=== PATIENT | male | born 1960 | race Caucasian/White ===

== ENCOUNTER → 2018-07-06 09:51 | Outpatient (CLI) | payer BC, SELFPAY | PROVIDERS: PCP Family Medicine; Visit Provider Family Medicine | DX: I10 Essential (primary) hypertension (principal) | CPT/HCPCS: 93306 ==

== ENCOUNTER → 2018-07-29 07:54 | Outpatient (CLI) | payer BC, SELFPAY ==
--- NOTE | 2018-07-29 07:57 | CT_ITS ---
CT heart w calcium score INDICATION: Chest pain, shortness of air, hypertension ITS.REASON: z ORDERING PHYSICIAN: Bertin Pizano MD PATIENT AGE: 58 years COMPARISON: None TECHNIQUE: Axial images are obtained without contrast. Sagittal and coronal reformatted images are reviewed as well. All CT scans at the facility use one or more dose reduction, viz: automated exposure control, ma/kV adjustment per patient size (including targeted exams where dose is matched to indication, i.e. head), or iterative reconstruction technique. FINDINGS: Coronary artery calcium score is 0 indicating no identifiable calcified atherosclerotic plaque very low cardiovascular disease risk IMPRESSION: Coronary artery calcium score is 0 indicating no identifiable calcified atherosclerotic plaque very low cardiovascular disease risk
== END ==
PROVIDERS: PCP Family Medicine; Visit Provider Internal Medicine Cardiovascular Disease
DX: R07.9 Chest pain, unspecified (principal); R06.02 Shortness of breath; I10 Essential (primary) hypertension; R53.83 Other fatigue
CPT/HCPCS: 75571

== ENCOUNTER → 2018-08-05 12:17 | Outpatient (CLI) | payer BC, SELFPAY | PROVIDERS: PCP Family Medicine; Visit Provider Internal Medicine Cardiovascular Disease | DX: G47.33 Obstructive sleep apnea (adult) (pediatric) (principal); I10 Essential (primary) hypertension; R06.02 Shortness of breath; R53.83 Other fatigue | CPT/HCPCS: 95806 ==

== ENCOUNTER → 2018-08-08 06:19 | Outpatient (CLI) | payer BC, SELFPAY ==
--- NOTE | 2018-08-08 06:21 | NM_ITS ---
SPECT MYOCARDIAL PERFUSION SCAN, REST AND STRESS: EXERCISE STRESS: [facility] REVIEW QGS EF AND WALL MOTION EVALUATION: QPS - PERFUSION EVALUATION: HISTORY: SOB, FATIGUE, HTN PROCEDURE: Rest imaging performed after administration of9.94 millicuries Tc MIBI. Dose administered at6:30 a.m., with imaging thereafter. Stress imaging was then performed following7 minutes 45 seconds of exercise stress. The patient achieved a heart [id number] with projected heart rate of139 . Resting BP174/106 with stress 172/86. At maximum exercise stress,32.0 millicuries Tc MIBI administered at8:20 a.m. with [id number] minutes thereafter. FINDINGS: Perfusion Evaluation: The single slice spect images as well as the [facility] bull's-eye data summary were reviewed. Wall Motion and Ejection Fraction Evaluation: Gated SPECT review and analysis used to evaluate these features. There is a 55 % left ventricular ejection fraction. There seems to be good wall motion Uniform myocardial activity at both stress and rest gated images corrected ejection fraction of 55% with normal wall motion IMPRESSION: No scintigraphic evidence of exercise-induced myocardial ischemia normal ejection fraction normal wall motion
--- NOTE | 2018-08-08 07:03 | HMH.ITSHM ---
Current Home Medications as stated by this patient Dc Zuniga or community health representative. []PSYLLIUM HUSK OMEPRAZOLE OMEGA 3 NABUMETONE LORATADINE LISINOPRIL GARLIC FERROUS SULFATE CITALOPRAM CHOLECALCIFEROL BISOPROLOL
== END ==
PROVIDERS: PCP Family Medicine; Visit Provider Internal Medicine Cardiovascular Disease
DX: R06.02 Shortness of breath (principal); I10 Essential (primary) hypertension; R53.83 Other fatigue
CPT/HCPCS: 78452; 93017; A9502

== ENCOUNTER → 2018-09-27 15:56 | Outpatient (CLI) | payer BC, SELFPAY ==
[2018-09-27 17:59] LABS: Anion Gap 11.9 mEq/L (5-15); Blood Urea Nitrogen 17 mg/dL (7-18); Calcium 9.2 mg/dL (8.5-10.1); Carbon Dioxide 30 mmol/L (21.0-32.0); Chloride 104 mmol/L (98-107); Creatinine,Serum 1.17 mg/dL (0.70-1.30); Estimated Glomerular Filt Rate 64 ml/min (>60); GFR (African American) 78 ML/MIN (>60); Glucose 113 mg/dL (74-106); Potassium 3.9 mmoL/L (3.5-5.1); Sodium 142 mmol/L (136-145)
[2018-10-04 09:57] LABS: Testosterone, Total, LC/MS 416.4 ng/dL (264.0-916.0); Testosterone,Free 8.2 pg/mL (7.2-24.0)
== END ==
PROVIDERS: Internal Medicine Cardiovascular Disease; Visit Provider Urology
DX: R06.09 Other forms of dyspnea (principal); I10 Essential (primary) hypertension; K21.9 Gastro-esophageal reflux disease without esophagitis; R60.9 Edema, unspecified; G47.33 Obstructive sleep apnea (adult) (pediatric); E29.1 Testicular hypofunction
CPT/HCPCS: 36415; 80048; 84402; 84403

== ENCOUNTER → 2018-12-09 15:38 | Outpatient (CLI) | payer BC, SELFPAY | PROVIDERS: PCP Family Medicine; Visit Provider Specialist | DX: G47.33 Obstructive sleep apnea (adult) (pediatric) (principal) | CPT/HCPCS: 94762 ==

== ENCOUNTER → 2020-07-02 14:08 | Outpatient (POV) | payer BC, SELFPAY | PROVIDERS: Visit Provider Dermatology | DX: Z00.00 Encounter for general adult medical examination without abnormal findings (principal) ==

== ENCOUNTER → 2020-08-15 11:38 | Outpatient (CLI) | payer BC, SELFPAY ==
--- NOTE | 2020-08-15 | XR_ITS ---
PROCEDURE: XR CHEST 2V CLINICAL HISTORY: COMPARISON: CR CXR2V XR chest 2V from 08/13/2018 CR Chest from 02/05/2019 FINDINGS: The cardiomediastinal silhouette and pulmonary vascularity are within normal limits. The lungs are clear without infiltrates, suspicious nodules, or pleural effusions. No acute bony abnormalities. IMPRESSION: No acute findings. Dictated by: Dr. Renzo Garcia MD 08/15/2020 12:12 Dr. Renzo Garcia MD in [place] 08/15/2020 12:12
--- NOTE | 2020-08-15 12:15 | ECG_ITS ---
APPROVED REPORT Exam: Resting ECG HR:70 bpm ECG Measurements Heart Rate 70 AXES ID 180 P 44 QRSd 88 QRS 21 QT 388 T 32 QTc 419 Conclusion Normal sinus rhythm Normal ECG Electronically signed by : Mychal Tran, 08/15/2020 19:20:32
== END ==
PROVIDERS: PCP Family Medicine; Visit Provider Nurse Practitioner
DX: R06.02 Shortness of breath (principal)
CPT/HCPCS: 71046; 93005

== ENCOUNTER → 2020-09-04 07:47 | Outpatient (CLI) | payer BC, SELFPAY ==
--- NOTE | 2020-09-04 | CA_ITS ---
APPROVED REPORT EXAM: Comprehensive 2D, Doppler, and color-flow Echocardiogram Well Service Floorperson: Kenya Nolan RT(R) Ht: 5 ft 10 in Wt: 244lbs BSA: 2.27 BP: 128/86 mmHg Indications: HTN, hyperlipidemia, JHOAN, GERD 2D Dimensions LVOT 2.03 cm (M/F) 1.5-2.5 M-Mode Dimensions RVDd 2.41 cm (0.9-2.6) LA Diam 3.51 cm (1.9-4.0) LVDd 4.62 cm (3.5-5.7) Ao Diam 2.83 cm (2.0-3.7) LVDs 3.29 cm (3.5-5.7) IVSd 0.92 cm (0.6-1.1) PWd 0.92 cm (0.6-1.1) EF (Teich) 55.40% FS 28.80% EDV (Teich) 98.30 mL ESV (Teich) 43.80 mL LV Diastology E Decel Time 220.00 (160-240 msec) E/A Ratio 1.2 MED E' 6.80 (< 7 cm/sec) E'/MED E' Ratio 12.19 (>14) LAT E' 11.30 (<10 cm/sec) E/LAT E' Ratio 7.34 (>14) Mitral Valve MV E Max Jeevan. 83.00 (40-130 cm/s) MV A Velocity 67.00 (40-130 cm/s) E/A Ratio 1.24 MV Decel. Time 220.00 (160-240 ms) MV PHT 64.00 ms Left Ventricle Left atrium is mildly enlarged, left ventricle is normal size, mild concentric left ventricular hypertrophy, visually estimated ejection fraction 55% with no regional wall motion abnormality. Diastolic parameters are inconclusive. Right Ventricle Right atrium and right ventricle are normal size and contractility. Aortic Valve Aortic valve is minimally thickened and fibrosed, there is no aortic stenosis or aortic insufficiency. Mitral Valve Mitral valve is grossly normal, there is mild mitral regurgitation. Tricuspid Valve Tricuspid valve grossly normal, there is mild tricuspid regurgitation, tricuspid regurgitation jet velocity is inadequate for calculation of the right ventricular systolic pressure. Pulmonic Valve Pulmonic valve is poorly visualized. Great Vessels Aortic root is normal size. Pericardium No significant pericardial effusion noted. Conclusion 1. Mildly in the left atrium, normal left ventricular size, mild concentric left ventricular hypertrophy, visually estimated ejection fraction 55% with no regional wall motion abnormality, diastolic parameters are inconclusive. 2. Mild mitral and tricuspid regurgitation. 3. No significant pericardial effusion noted. Electronically signed by : Bertin Pizano, 09/05/2020 14:16:06
[2020-09-04 18:17] LABS: Coronavirus 19 IgG Antibody Negative (Negative); Coronavirus 19 IgM Antibody Negative (Negative)
== END ==
PROVIDERS: Specialist; PCP Family Medicine; Visit Provider Nurse Practitioner
DX: R06.02 Shortness of breath (principal); R60.0 Localized edema; R07.9 Chest pain, unspecified; R68.89 Other general symptoms and signs; Z20.822 Contact with and (suspected) exposure to COVID-19
CPT/HCPCS: 36415; 86328; 93306

== ENCOUNTER → 2020-09-04 16:56 | Outpatient (CLI) | payer BC, SELFPAY | PROVIDERS: Visit Provider Specialist | DX: R07.89 Other chest pain (principal) | CPT/HCPCS: 36415; 86328 ==

== ENCOUNTER → 2020-09-16 17:31 | Outpatient (CLI) | payer BC, SELFPAY ==
[2020-09-16 19:05] LABS: Anion Gap 10.9 mEq/L (5-15); Blood Urea Nitrogen 23 mg/dl (9-20); Calcium 9.9 mg/dl (8.4-10.2); Carbon Dioxide 34 mmol/L (22.0-30.0); Chloride 103 mmol/L (98-107); Estimated Glomerular Filt Rate 69 ml/min (>60); GFR (African American) 83 ML/MIN (>60); Glucose 100 mg/dl (74-100); Potassium 4.9 mmoL/L (3.5-5.1); Sodium 143 mmol/L (136-145)
[2020-09-16 19:12] LABS: NT Pro Brain Natriuretic Pep. 53.7 pg/mL (0-125)
== END ==
PROVIDERS: Visit Provider Internal Medicine Cardiovascular Disease
DX: R07.9 Chest pain, unspecified (principal); R06.00 Dyspnea, unspecified; R06.02 Shortness of breath; R60.0 Localized edema; I10 Essential (primary) hypertension; G47.33 Obstructive sleep apnea (adult) (pediatric); K21.9 Gastro-esophageal reflux disease without esophagitis
CPT/HCPCS: 36415; 80048; 83880

== ENCOUNTER → 2021-01-04 10:05 | Outpatient (CLI) | payer BC, SELFPAY ==
[2021-01-04 10:47] LABS: Basophils % 0.6 % (0.1-2.0); Eosinophils # 0.2 K/mm3 (0.0-0.4); Eosinophils % 2.3 % (0.1-12.0); Hematocrit 53.5 % (42.0-52.0); Hemoglobin 17.8 g/dL (14.1-18.0); Lymphocytes # 2.8 K/mm3 (0.7-4.5); Mean Corpuscular HGB Conc 33.2 g/dL (31.8-35.4); Mean Corpuscular Hemoglobin 29.1 pg (27.0-31.2); Mean Corpuscular Volume 87.6 fl (80-94); Mean Platelet Volume 8.6 fl (7.4-10.4); Monocytes # 0.5 K/mm3 (0.1-1.0); Monocytes % 7.8 % (1.7-9.3); Neutrophils % 46.3 % (37.0-80.0); Platelet Count 248 K/mm3 (142-424); Red Cell Distribution Width 13.5 % (11.5-17.5); White Blood Count 6.5 K/mm3 (4.8-10.8)
[2021-01-04 11:10] LABS: Chloride 101 mmol/L (98-107); Potassium 4.9 mmoL/L (3.5-5.1); Sodium 138 mmol/L (136-145)
[2021-01-04 11:12] LABS: Blood Urea Nitrogen 24 mg/dl (9-20); Estimated Glomerular Filt Rate 87 ml/min (>60); GFR (African American) 105 ML/MIN (>60)
[2021-01-04 11:13] LABS: Alanine Aminotransferase 28 U/L (12-78); Albumin Level 4.8 g/dl (3.5-5.0); Alkaline Phosphatase 70 U/L (38-126); Anion Gap 14.9 mEq/L (5-15); Aspartate Amino Transferase 27 U/L (17-59); Bilirubin,Direct 0.4 mg/dl (0.0-0.4); Bilirubin,Indirect 0.3 mg/dL (0.0-0.9); Bilirubin,Total 0.7 mg/dl (0.2-1.3); Bilirubin,Unconjugated 0.3 mg/dL (0.0-1.1); Calcium 9.1 mg/dl (8.4-10.2); Carbon Dioxide 27 mmol/L (22.0-30.0); Chol/HDL Ratio 4.4 (1-3.5); Cholesterol 167 mg/dl (140-200); Glucose 111 mg/dl (74-100); HDL Cholesterol 38 mg/dl (40-60); Total Protein,Serum 7.1 g/dl (6.3-8.2); Triglycerides 89 mg/dl (30-150); VLDL Cholesterol 18 mg/dL (0-40)
[2021-01-04 11:24] LABS: Direct LDL Cholesterol 110.55 mg/dL (100-129)
[2021-01-04 11:29] LABS: Free T4 (Free Thyroxine) 1.42 ng/dl (0.78-2.19)
[2021-01-04 11:44] LABS: Thyroid Stimulating Hormone 0.53 uIU/mL (0.465-4.68)
== END ==
PROVIDERS: Visit Provider Internal Medicine Cardiovascular Disease
DX: R06.00 Dyspnea, unspecified (principal); I10 Essential (primary) hypertension; R60.9 Edema, unspecified; G47.33 Obstructive sleep apnea (adult) (pediatric)
CPT/HCPCS: 36415; 80048; 80061; 80076; 84439; 84443; 85025

== ENCOUNTER → 2021-02-24 17:45 | Outpatient (CLI) | payer BC, SELFPAY | PROVIDERS: Visit Provider Surgery | DX: Z20.822 Contact with and (suspected) exposure to COVID-19 (principal) | CPT/HCPCS: U0003 ==

== ENCOUNTER 2021-02-26 10:08 | Day surgery (SDC) | payer BC, SELFPAY ==
[2021-02-24 10:43] VITALS: BMI 34.5
[2021-02-26] VITALS (7 sets, daily range): BP systolic 98–117; BP diastolic 55–75; PULSE 64–69; RESP 16–18; TEMP 36.5–36.6; O2SAT 92–98
--- NOTE | 2021-02-26 10:43 | HMH.ANESCL ---
[facility] Anesthesia Checklist - Patient Identification Patient Identification: Arm Band - Structural Data Admitted From: Home Planned Operative Procedure/s: Colonoscopy Consent for Planned Operative Procedure(s) Verified: Yes - NPO Status Verified Time NPO: 04:00 (Prep) - Airway Assessment C-Spine Mobility Assessed: Yes TMJ Mobility Assessed: Yes Dentition: Good Dentition - Neurological Assessment Level of Consciousness: Awake Hx Seizures: No Numbness or tingling in extremities: No - Anesthesia Plan Anesthesia Risk discussed: Yes Anesthesia Plan: Verified ASA Class: III Anesthesia Type: MAC [facility] History I have reviewed the patient's past medical history: Yes Medical History: Reports:: Congestive Heart Failure, Gastroesophageal Reflux Disease(GERD), Hyperlipidemia, Hypertension, Renal Disease Denies:: Cancer, Diabetes Mellitus Type 1, Diabetes Mellitus Type 2, Internal Pacemaker, MRSA, Seizures *Have you ever received a pneumonia vaccine?: No *Have you received a flu vaccine this season?: No Other Medical History: Reports: Anemia, Arthritis Anesthesia experience/problems:: None Other Surgeries: Yes: No Previous Surgery, Cardiac Catheterization, Colonoscopy, Other. No: Pacemaker Amputation: No Fractures: No - *Social History Last grade of school completed: High school graduate Smoking Status: Never smoker Alcohol Intake: current Alcohol Intake Frequency:: a few times a month Substance Use Type: denies use *Occupational Status:: employed Housing: house Household Members: spouse *Travel in the last 8 weeks: None Family Hx:: No significant family history
--- NOTE | 2021-02-26 11:10 | HMH.SCOPE ---
- Procedure: Date: 02/26/21 Patient Date of :: 1960 Procedure Performed:: Total colonoscopy to terminal ileum Indications:: Patient was recently a self-referral to the office for hemorrhoids. His primary care provider is Yomi Caldera. He works at [employer]. He states that for years he has had some problems with hemorrhoids. This has been worse recently. He underwent apparent excision by Dr. Steen in the office of external hemorrhoids under local. He describes bleeding with bowel movements. He has some discomfort. He has itching, burning, and rash. He does take fiber supplementation as he has a history of previous alteration between constipation and diarrhea and this seems to help. He did undergo colonoscopy by Dr. Garland Cortez in 2012 for rectal bleeding and was noted to have external hemorrhoids but otherwise unremarkable. Limited exam in the office reveals no appreciable external hemorrhoids. Given his symptomatology I feel that follow-up colonoscopy would be warranted to assess the internal hemorrhoids and for alternate etiology. This is most likely internal hemorrhoids but I did explain to him the possibility, although unlikely, of rectal carcinoma or other etiology. I also explained him the potential if amenable of hemorrhoid banding through the colonoscope. Performing Provider:: Villa Moyer MD Referring Provider:: Yomi Caldera MD Sedation:: MAC sedation Procedure:: Patient was positioned in lateral decubitus position. Digital examination was performed. He did not have any evidence of any pathologic external hemorrhoids. Variable stiffness Olympus colonoscope was inserted via the anus. Retroflexion immediately within the rectum revealed circumferential internal hemorrhoids. 1 of these appeared to be somewhat larger with erosion but nonbleeding. Colonoscope was able to be advanced to the cecum without difficulty. Colonic preparation was good. Ileocecal valve and appendiceal orifice were clearly identified. Colonoscope was advanced a short distance into the terminal ileum which appeared grossly normal. Colonoscope was slowly withdrawn through the colon with careful surveillance. There were no masses or polyps noted. He did have beginnings of a few sigmoid diverticuli. Once again retroflexion was performed within the rectum to inspect the hemorrhoids. It was felt that this would not be best treated with banding but initial with medical therapy. Colonoscope was withdrawn. Findings:: Internal hemorrhoids, circumferential, 1 of which appeared to have minor erosion Early sigmoid diverticuli Recommendations:: Recommend medical management of hemorrhoids at this time. If persist may consider banding or hemorrhoidectomy Complications:: None immediately apparent Estimated blood obtained (mL): 0
== END 2021-02-26 11:55 | disposition home or self-care (01) ==
LOC: OUTP 10:08
PROVIDERS: PCP Family Medicine; Visit Provider Surgery
PROC: 0DJD8ZZ Inspection of Lower Intestinal Tract, Via Natural or Artificial Opening Endoscopic (ICD-10-PCS; CPT 45378; principal; 2021-02-26 11:00)
DX: K64.9 Unspecified hemorrhoids (principal); K62.5 Hemorrhage of anus and rectum; K57.30 Diverticulosis of large intestine without perforation or abscess without bleeding; K21.9 Gastro-esophageal reflux disease without esophagitis; I11.0 Hypertensive heart disease with heart failure; I50.9 Heart failure, unspecified; N28.9 Disorder of kidney and ureter, unspecified; D64.9 Anemia, unspecified; M19.90 Unspecified osteoarthritis, unspecified site; Z79.899 Other long term (current) drug therapy
CPT/HCPCS: 45378

== ENCOUNTER → 2021-07-19 09:37 | Outpatient (CLI) | payer BC, SELFPAY ==
[2021-07-19 11:33] LABS: Chloride 101 mmol/L (98-107); Potassium 4.6 mmoL/L (3.5-5.1); Sodium 140 mmol/L (136-145)
[2021-07-19 11:35] LABS: Alanine Aminotransferase 31 U/L (12-78); Aspartate Amino Transferase 28 U/L (17-59); Blood Urea Nitrogen 21 mg/dl (9-20); Estimated Glomerular Filt Rate 99 ml/min (>60); GFR (African American) 120 ML/MIN (>60)
[2021-07-19 11:36] LABS: Albumin Level 4.4 g/dl (3.5-5.0); Albumin/Globulin Ratio 1.8 (1.1-1.8); Alkaline Phosphatase 61 U/L (38-126); Anion Gap 11.6 mEq/L (5-15); Bilirubin,Total 0.5 mg/dl (0.2-1.3); Calcium 9.4 mg/dl (8.4-10.2); Carbon Dioxide 32 mmol/L (22.0-30.0); Chol/HDL Ratio 4.8 (1-3.5); Cholesterol 202 mg/dl (140-200); Globulin 2.5 g/dL (1.3-3.2); Glucose 113 mg/dl (74-100); HDL Cholesterol 42 mg/dl (40-60); Total Protein,Serum 6.9 g/dl (6.3-8.2); Triglycerides 123 mg/dl (30-150); VLDL Cholesterol 25 mg/dL (0-40)
[2021-07-19 13:21] LABS: Prostate Specific Ag Screen 0.9 ng/ml (0.0-4.0)
== END ==
PROVIDERS: Visit Provider Family Medicine
DX: I10 Essential (primary) hypertension (principal); E78.5 Hyperlipidemia, unspecified; Z12.5 Encounter for screening for malignant neoplasm of prostate
CPT/HCPCS: 36415; 80053; 80061; G0103

== ENCOUNTER → 2021-12-03 20:07 | Outpatient (CLI) | payer BC, SELFPAY | PROVIDERS: PCP Family Medicine; Visit Provider Nurse Practitioner Family | DX: G47.33 Obstructive sleep apnea (adult) (pediatric) (principal) | CPT/HCPCS: 95811 ==

== ENCOUNTER → 2021-12-12 11:46 | Outpatient (CLI) | payer BC, SELFPAY ==
[2021-12-12 13:03] LABS: Blood Urea Nitrogen 18 mg/dl (9-20); Calcium 9.3 mg/dl (8.4-10.2); Carbon Dioxide 32 mmol/L (22.0-30.0); Chloride 101 mmol/L (98-107); Estimated Glomerular Filt Rate 86 ml/min (>60); GFR (African American) 105 ML/MIN (>60); Glucose 127 mg/dl (74-100); Sodium 141 mmol/L (136-145)
== END ==
PROVIDERS: PCP Family Medicine; Visit Provider Internal Medicine Cardiovascular Disease
DX: R06.02 Shortness of breath (principal); I10 Essential (primary) hypertension; K21.9 Gastro-esophageal reflux disease without esophagitis; G47.33 Obstructive sleep apnea (adult) (pediatric)
CPT/HCPCS: 36415; 80048

== ENCOUNTER → 2022-01-15 16:21 | Outpatient (CLI) | payer BC, SELFPAY ==
[2022-01-23 20:11] LABS: Testosterone,Free 6.4 pg/mL (7.2-24.0)
== END ==
PROVIDERS: PCP Family Medicine; Visit Provider Urology
DX: E29.1 Testicular hypofunction (principal)
CPT/HCPCS: 36415; 84402; 84403

== ENCOUNTER → 2022-01-31 08:58 | Outpatient (CLI) | payer BC, SELFPAY ==
[2022-01-31 11:15] LABS: Chloride 101 mmol/L (98-107); Potassium 4.6 mmoL/L (3.5-5.1); Sodium 138 mmol/L (136-145)
[2022-01-31 11:17] LABS: Alanine Aminotransferase 37 U/L (12-78); Alkaline Phosphatase 70 U/L (38-126); Aspartate Amino Transferase 31 U/L (17-59); Bilirubin,Total 0.7 mg/dl (0.2-1.3); Blood Urea Nitrogen 22 mg/dl (9-20); Estimated Glomerular Filt Rate 76 ml/min (>60); GFR (African American) 93 ML/MIN (>60)
[2022-01-31 11:18] LABS: Albumin Level 4.4 g/dl (3.5-5.0); Albumin/Globulin Ratio 1.8 (1.1-1.8); Anion Gap 9.6 mEq/L (5-15); Carbon Dioxide 32 mmol/L (22.0-30.0); Globulin 2.5 g/dL (1.3-3.2); HDL Cholesterol 39 mg/dl (40-60); Total Protein,Serum 6.9 g/dl (6.3-8.2)
[2022-01-31 11:24] LABS: Calcium 9.6 mg/dl (8.4-10.2); Glucose 125 mg/dl (74-100); Triglycerides 139 mg/dl (30-150); VLDL Cholesterol 28 mg/dL (0-40)
[2022-01-31 11:29] LABS: Direct LDL Cholesterol 141.25 mg/dL (100-129)
[2022-01-31 15:23] LABS: Chol/HDL Ratio 5.6 (1-3.5); Cholesterol 218 mg/dl (140-200)
== END ==
PROVIDERS: PCP Family Medicine; Visit Provider Family Medicine
DX: I10 Essential (primary) hypertension (principal); E78.5 Hyperlipidemia, unspecified
CPT/HCPCS: 36415; 80053; 80061

== ENCOUNTER → 2022-03-10 15:35 | Outpatient (CLI) | payer BC, SELFPAY ==
[2022-03-10 16:46] LABS: Basophils % 0.5 % (0.1-2.0); Eosinophils # 0.3 K/mm3 (0.0-0.4); Eosinophils % 3.5 % (0.1-12.0); Hematocrit 48.4 % (42.0-52.0); Hemoglobin 15.9 g/dL (14.1-18.0); Lymphocytes # 2.8 K/mm3 (0.7-4.5); Lymphocytes % 39.8 % (10-50); Mean Corpuscular HGB Conc 32.8 g/dL (31.8-35.4); Mean Corpuscular Hemoglobin 29.5 pg (27.0-31.2); Mean Corpuscular Volume 89.7 fl (80-94); Mean Platelet Volume 8.2 fl (7.4-10.4); Monocytes # 0.5 K/mm3 (0.1-1.0); Monocytes % 7.6 % (1.7-9.3); Neutrophils # 3.5 K/mm3 (1.8-7.8); Neutrophils % 48.6 % (37.0-80.0); Platelet Count 286 K/mm3 (142-424); Red Blood Count 5.39 M/mm3 (4.60-6.20); Red Cell Distribution Width 14.2 % (11.5-17.5); White Blood Count 7.1 K/mm3 (4.8-10.8)
[2022-03-10 17:13] LABS: Anion Gap 12.8 mEq/L (5-15); Blood Urea Nitrogen 24 mg/dl (9-20); Calcium 9.9 mg/dl (8.4-10.2); Carbon Dioxide 34 mmol/L (22.0-30.0); Chloride 99 mmol/L (98-107); Estimated Glomerular Filt Rate 69 ml/min (>60); GFR (African American) 83 ML/MIN (>60); Glucose 95 mg/dl (74-100); Potassium 4.8 mmoL/L (3.5-5.1); Sodium 141 mmol/L (136-145)
== END ==
PROVIDERS: PCP Family Medicine; Visit Provider Surgery
DX: K42.9 Umbilical hernia without obstruction or gangrene (principal)
CPT/HCPCS: 36415; 80048; 85025

== ENCOUNTER 2022-03-16 05:32 | Day surgery (SDC) | payer BC, SELFPAY ==
[2022-03-16] VITALS (12 sets, daily range): BP systolic 107–140; BP diastolic 71–97; PULSE 60–81; RESP 12–18; TEMP 36.5–43; O2SAT 92–99; BMI 36.7
--- NOTE | 2022-03-16 07:16 | P.PN_ITS ---
[facility] Anesthesia Checklist - Patient Identification Patient Identification: Arm Band - Structural Data Admitted From: Home Planned Operative Procedure/s: OPen umbilical hernia repair Consent for Planned Operative Procedure(s) Verified: Yes - NPO Status Verified Time NPO: 00:00 - Additional verifications Anesthesia Reactions: No Hx Blood Transfusions: No Blood Transfusion Reaction: No - Airway Assessment C-Spine Mobility Assessed: Yes TMJ Mobility Assessed: Yes Dentition: Good Dentition - Neurological Assessment Level of Consciousness: Awake Hx Seizures: No Numbness or tingling in extremities: No - Anesthesia Plan Anesthesia Risk discussed: Yes Anesthesia Plan: Verified ASA Class: III Anesthesia Type: General [facility] History I have reviewed the patient's past medical history: Yes Medical History: Reports:: Congestive Heart Failure, Gastroesophageal Reflux Disease(GERD), Hyperlipidemia, Hypertension, Renal Disease Denies:: Cancer, Diabetes Mellitus Type 1, Diabetes Mellitus Type 2, Internal Pacemaker, MRSA, Seizures *Have you ever received a pneumonia vaccine?: No *Have you received a flu vaccine this season?: Yes Other Medical History: Reports: Anemia, Arthritis. Denies: Blood Transfusion Reaction Anesthesia experience/problems:: None Other Surgeries: Yes: No Previous Surgery, Cardiac Catheterization, Colonoscopy, Other. No: Pacemaker Amputation: No Fractures: Yes (finger) - *Social History Last grade of school completed: High school graduate Smoking Status: Never smoker Alcohol Intake: current Alcohol Intake Frequency:: a few times a month Substance Use Type: denies use *Occupational Status:: employed Housing: house Household Members: spouse *Travel in the last 8 weeks: None Family Hx:: No significant family history
--- NOTE | 2022-03-16 07:52 | P.OP_ITS ---
Date of procedure: 03/16/22 Pre-op Diagnosis:: Umbilical hernia Post-op Diagnosis:: Same Procedure performed:: Open repair of umbilical hernia with placement of small sized Bard Ventralex mesh (4.3 cm) Surgeon:: Villa Moyer MD CUSTOMER ACCOUNT TECHNICIAN:: Mary Booker Anesthesia: LMA Estimated blood loss (mL): 5 Clinical Note:: He is a 61-year-old male who had been referred by Yomi Caldera for umbilical hernia. For several months he has had a protrusion at his umbilical area. He has not had any significant pain from it. However, he felt that he may need to undergo repair as he felt it may become more symptomatic, larger, and have potential complications. 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. He was found to have a small reducible umbilical hernia. Options were discussed. He wished to pursue repair. Operative findings:: Patient had a relatively small umbilical hernia with a defect measuring about 10 mm. Operative note:: Patient was taken to the operating room. He was given preoperative intravenous antibiotics. He was positioned in supine position. General anesthesia was induced via LMA. Abdomen was prepped and draped in the standard surgical fashion. Subumbilical incision was made. Dissection was carried down through subcutaneous tissues. The peritoneum adherent to the umbilical subdermis was dissected free from the umbilical subdermal's as connected hernia sac. This was incised and opened. The peritoneum was then dissected to the normal fascia. It was sent off a specimen labeled hernia sac. Overall size of the defect measured about 10 mm. Small sized Bard Ventralex mesh was brought onto the field. It was inserted into the peritoneal cavity to cover the defect posteriorly. The tails of the mesh were sutured superiorly and inferior to the fascia with 2-0 Prolene sutures. Tails were then cut flush with the fascia. Fascia was closed over the mesh with several interrupted 0 Ethibond sutures. Local anesthetic was infiltrated. There was good hemostasis. The umbilical dermis was reapproximated to the fascia with a couple of 2-0 PDS sutures. Subdermal ti ssues were closed with interrupted 2-0 Vicryl. Skin was closed with 4-0 Monocryl in a running subcuticular fashion. Dermabond and dressings were applied. Condition: stable Disposition: PACU Specimens:: Hernia sac Complications:: Not immediately apparent
--- NOTE | 2022-03-16 08:05 | HMH.ANESI ---
[facility] Anesthesia Record Part I Intake, IV Amount: 200 Estimated blood loss (mL): 5 Urine output (mL): 0 Blood Pressure: 132/80 SaO2: 92 Pulse Rate: 74 Respiratory Rate: 12 Temperature: 97.8 F Patient is:: Drowsy, Oral/Nasal airway Stable to PACU at:: 07:59
--- NOTE | 2022-03-16 12:33 | P.PN_ITS ---
[facility] Anesthesia Record Part II Discharge Time: 08:29 Destination: Surgical Day Care (OP Surgery) PACU nurse assessment reviewed?: Yes Patient Condition:: Good Anesthesia Complications:: None Swallowing reflex intact?: Yes Cyanosis?: No Blood Pressure: 136/79 Pulse Rate: 76 Temperature: 98 F Mental Status: Alert & Oriented Pain level:: 0 Nausea and/or vomitting:: None Intake, IV Amount: 0
== END 2022-03-16 09:14 | disposition home or self-care (01) ==
LOC: OR 05:33
PROVIDERS: PCP Family Medicine; Visit Provider Surgery
PROC: (CPT 49585; principal; 2022-03-16 07:30)
DX: K42.9 Umbilical hernia without obstruction or gangrene (principal); K21.9 Gastro-esophageal reflux disease without esophagitis; I11.0 Hypertensive heart disease with heart failure; I50.9 Heart failure, unspecified; E78.5 Hyperlipidemia, unspecified; N28.9 Disorder of kidney and ureter, unspecified; Z79.899 Other long term (current) drug therapy
CPT/HCPCS: 49585; 96374; C1781; J2405

== ENCOUNTER → 2022-05-16 10:09 | Outpatient (CLI) | payer BC, SELFPAY ==
--- NOTE | 2022-05-16 | XR_ITS ---
PROCEDURE INFORMATION: Exam: XR Left Knee Exam date and time: 05/16/2022 10:32 AM Age: 62 years old Clinical indication: Left; Patient HX: Pain in lt knee @ popliteal surface x months, nkt. TECHNIQUE: Imaging protocol: Radiologic exam of the Left knee. Views: 3 views. COMPARISON: No relevant prior studies available. FINDINGS: Bones/joints: Normal. Soft tissues: Normal. IMPRESSION: No acute findings.
== END ==
PROVIDERS: PCP Family Medicine; Visit Provider Family Medicine
DX: M25.562 Pain in left knee (principal)
CPT/HCPCS: 73562

== ENCOUNTER 2022-07-16 08:54 | Emergency (ER) | payer BC, SELFPAY ==
[2022-07-16 09:25] VITALS: BP 149/95; PULSE 113; RESP 20; TEMP 37.1; O2SAT 95; BMI 36.6
--- NOTE | 2022-07-16 09:59 | EXP.UTC ---
Discharge Plan Disposition Patient Disposition: Home, Self-Care Condition: Good Prescriptions Prescriptions: New oseltamivir [Tamiflu] 75 mg capsule 75 mg PO Q12H 5 Days Qty: 10 0RF No Action duloxetine 60 mg capsule,delayed release(DR/EC) 60 mg PO DAILY Label Comments: TAKE 1 CAPSULE BY MOUTH ONCE DAILY tamsulosin 0.4 mg capsule 0.4 mg PO DAILY Label Comments: TAKE 1 CAPSULE BY MOUTH ONCE DAILY testosterone cypionate 200 mg/mL oil 200 mg IM WEEKLY Label Comments: INJECT 1 2 (ONE HALF) ML (CC) INTRAMUSCULARLY ONCE A WEEK melatonin 5 mg tablet 10 mg PO HS omeprazole 40 mg capsule,delayed release(DR/EC) 40 mg PO DAILY nabumetone 750 mg tablet 750 mg PO BID cholecalciferol (vitamin D3) 1,000 unit capsule 1,000 unit PO DAILY garlic 1,000 mg capsule 1,000 mg capsule 1,000 mg PO QPC omega 1-fzv-xcl-fish oil [Fish Oil] 1,000 mg (120 mg-180 mg) capsule 1 cap PO DAILY psyllium husk [Daily Fiber] 0.52 gram capsule 0.52 gm PO DAILY losartan 100 mg tablet 100 mg PO DAILY bumetanide 2 mg tablet See Rx Instructions .ROUTE .COMPLEX Qty: 30 0RF Dose Instruction: Take 1 tablet by mouth once daily Rx Instructions: Take 1 tablet by mouth once daily spironolactone 25 MG tablet 25 mg PO DAILY bisoprolol fumarate 10 MG tablet 10 mg PO DAILY MDD bp Referrals Follow up/Referrals: Colin Caldera MD [Primary Care Provider] - See instructions Activity Restrictions/Add. 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 Discussed risk and possible benefits. Lots of rest Increase Fluids water, Gatorade, powerade, pedialyte,if /toddler/child Alternate Tylenol and / or ibuprofen as discussed for fever, aches, chills Follow up IMMEDIATELY with your family doctor for new or worsening Symptoms OR no noticeable improvement over the next 48-72 hours, 911 for difficulty or breathing You or your child area contagious until no fever, aches, chills for 24 hours with medication for symptoms Help Prevent the spread of influenza: ?Wash your hands often. Use soap and water. Wash your hands after you use the bathroom, change a child's diapers, or sneeze. Wash your hands before you prepare or eat food. Use gel hand cleanser that has 60% alcohol, when soap and water are not available. Do not touch your eyes, nose, or mouth unless you have washed your hands first. Cover your mouth when you sneeze or cough. Cough into a tissue or the bend of your arm. If you use a tissue, throw it away immediately and wash your hands. Clean shared items with a germ-killing chicken cleaner. Clean table surfaces, doorknobs, and light switches. Do not share towels, silverware, and dishes with people who are sick. Wash bed sheets, towels, silverware, and dishes with soap and water. Wear a mask over your mouth and nose if you are sick. The face mask may help protect others from becoming infected with the flu. Wear the mask when in common areas of your home or if you seek care with a healthcare provider. Stay away from others if you are sick. Stay at home until 24 hours after your fever and symptoms are gone Your results of your COVID/Flu test should be back in the next couple of hours, you may check your results on the [email or web address]. Clinical Impressions Clinical Impression: Flu-like symptoms Stand Alone Forms Stand Alone Forms: Work/School Release Instructions Patient Instructions: DI for Viral Upper Respiratory Infection -- Adult, DI for Influenza -- Adult Discharge ED Provider: Mary Suarez
[2022-07-16 10:08] LABS: Coronavirus 19, PCR Not Detected (NotDetected); Influenza B, PCR Not Detected (NotDetected)
[2022-07-16 10:13] VITALS: BP 149/95; PULSE 113; RESP 20; TEMP 37.1; O2SAT 95
[2022-07-16 10:36] LABS: Influenza A, PCR Detected (NotDetected)
== END 2022-07-16 10:14 | disposition home or self-care (01) ==
PROVIDERS: Emergency Provider Nurse Practitioner; PCP Family Medicine
DX: J10.1 Influenza due to other identified influenza virus with other respiratory manifestations (principal)
CPT/HCPCS: 99212; C9803; G0463; U0003; U0005

== ENCOUNTER → 2022-10-14 09:40 | Outpatient (CLI) | payer BC, SELFPAY ==
--- NOTE | 2022-10-14 10:13 | MR_ITS ---
FINAL REPORT TECHNIQUE: Multiplanar and multisequence imaging the right knee was obtained without contrast. CLINICAL HISTORY: left knee pain pain in left knee and gives out when walking up or down steps swelling FINDINGS: Bones: There is no acute fracture or marrow edema. There is degenerative joint disease with subchondral change of the medial patellar facet and medial femoral condyle with overlying chondromalacia. There is partial-thickness cartilage deformity of the posterior medial femoral condyle. Menisci: There is a radial tear of the posterior horn of the medial meniscus. The anterior horn is intact. The lateral meniscus is intact. Ligaments: No cruciate or collateral ligament tear is present. Tendons/Muscles: The quadriceps and patellar tendons are within normal limits. The biceps femoris tendon and iliotibial tract are intact. The popliteus tendon is normal. Other: There is a large joint effusion. There is prepatellar edema. Remaining soft tissues are normal. IMPRESSION: Degenerative joint disease and chondromalacia. Tear posterior horn medial meniscus. Large joint effusion Reviewed, Interpreted and Dictated by Rocio Crowder MD Transcribed by Abimbola Connolly Authenticated and [facility]
== END ==
PROVIDERS: PCP Family Medicine; Visit Provider Orthopaedic Surgery
DX: M25.562 Pain in left knee (principal)
CPT/HCPCS: 73721

== ENCOUNTER 2022-11-24 17:55 | Emergency (ER) | payer BC, SELFPAY ==
[2022-11-24 18:20] VITALS: BP 143/90; PULSE 91; RESP 19; TEMP 36.9; O2SAT 96; BMI 35.9
--- NOTE | 2022-11-24 19:32 | EXP.UTC ---
Discharge Plan Disposition Patient Disposition: Home, Self-Care Condition: Good Prescriptions Prescriptions: New azithromycin [Zithromax Z-Luis Eduardo] 250 mg tablet See Rx Instructions .ROUTE .COMPLEX 5 Days Qty: 6 0RF Rx Instructions: For 250 mg dose pack: take 500 mg today (day 1), then 250 mg for 4 days (days 2-5) guaifenesin [Mucinex] 600 mg tablet extended release 12hr 600 - 1,200 mg PO BID PRN (Reason: cough) Qty: 20 0RF No Action duloxetine 60 mg capsule,delayed release(DR/EC) 60 mg PO DAILY Label Comments: TAKE 1 CAPSULE BY MOUTH ONCE DAILY tamsulosin 0.4 mg capsule 0.4 mg PO DAILY Label Comments: TAKE 1 CAPSULE BY MOUTH ONCE DAILY testosterone cypionate 200 mg/mL oil 200 mg IM WEEKLY Label Comments: INJECT 1 2 (ONE HALF) ML (CC) INTRAMUSCULARLY ONCE A WEEK melatonin 5 mg tablet 20 mg PO HS omeprazole 40 mg capsule,delayed release(DR/EC) 40 mg PO DAILY nabumetone 750 mg tablet 750 mg PO BID garlic 1,000 mg capsule 1,000 mg capsule 1,000 mg PO QPC omega 5-ueh-jur-fish oil [Fish Oil] 1,000 mg (120 mg-180 mg) capsule 1 cap PO DAILY psyllium husk [Daily Fiber] 0.52 gram capsule 0.52 gm PO DAILY losartan 100 mg tablet 100 mg PO DAILY spironolactone 25 MG tablet 25 mg PO DAILY bisoprolol fumarate 10 MG tablet 10 mg PO DAILY MDD bp valsartan 160 mg tablet 160 mg PO DAILY Label Comments: TAKE 1 TABLET BY MOUTH ONCE DAILY rosuvastatin 10 mg tablet 10 mg PO DAILY Label Comments: TAKE 1 TABLET BY MOUTH ONCE DAILY bumetanide 2 mg tablet See Rx Instructions .ROUTE .COMPLEX Rx Instructions: Take 1 tablet by mouth once daily Referrals Follow up/Referrals: Colin Caldera MD [Primary Care Provider] - See instructions Activity Restrictions/Add. Instructions Additional Instructions/Restrictions: *Monitor Temp, Over the counter Motrin or Tylenol as directed/as needed Tylenol every 4 hours and Motrin every 6 hours (as long as your family doctor has told you that you can take it) for fever or pain. and straight to ER if unable to lower temp less than 101.0 after medication given *Warm salt water gargles may help to soothe the throat *Throat Lozenges? *Warm fluids like tea with honey may help to soothe the throat? *Sleep elevated *Humidifier/Vaporizer Take medication as prescribe Follow up IMMEDIATELY for new or worsening symptoms or no Noticeable improvement over the next 48-72 hours. 911 for difficulty breathing or swallowing Clinical Impressions Clinical Impression: Bronchitis Sinusitis Qualifiers: Sinusitis location: unspecified location Chronicity: unspecified Qualified Code(s): J32.9 - Chronic sinusitis, unspecified Instructions Patient Instructions: Sinusitis, Acute Bronchitis, Chronic Bronchitis, DI for Sinusitis Discharge ED Provider: Mary Suarez [facility] General Stated complaint: congestion, Sore throat, cough Mode of Arrival: Ambulatory Source of Information: Patient Limitations: No Limitations Time Seen by Provider: 11/24/22 19:32 Description of Symptoms (Recalled from Triage Doc. by RN): productive cough, chest congestion, sinus pressure HEENT Symptoms (Recalled from RN notes): Yes Resp Symptoms (Recalled from RN notes): No Skin Symptoms (Recalled from RN notes): No MS Symptoms (Recalled from RN notes): No Functional Status (Recalled from RN notes): n/a History of Present Illness Provider Complaint: Patient states that he has been having sinus pain and pressure and felt like it was draining in the back of his throat trying to move into his chest States that at times he will cough up the mucous draining in his throat States that sinus pressure today was worse and he is suppose to have surgery next week and needs to get it cleared up Related Data Home Medications Medication Instructions Recorded Confirm
[2022-11-24 20:08] VITALS: BP 143/90; PULSE 91; RESP 19; TEMP 36.9; O2SAT 96
== END 2022-11-24 20:08 | disposition home or self-care (01) ==
PROVIDERS: Emergency Provider Nurse Practitioner; PCP Family Medicine
DX: J20.9 Acute bronchitis, unspecified (principal); I10 Essential (primary) hypertension; K21.9 Gastro-esophageal reflux disease without esophagitis
CPT/HCPCS: 96372; 99212; 99214; G0463; J0696

== ENCOUNTER 2022-11-30 06:01 | Day surgery (SDC) | payer BC, SELFPAY ==
[2022-11-26 09:56] VITALS: BMI 36.0
[2022-11-30] VITALS (10 sets, daily range): BP systolic 118–148; BP diastolic 82–98; PULSE 74–88; RESP 11–18; TEMP 36.3–43; O2SAT 92–97
--- NOTE | 2022-11-30 06:21 | XR_ITS ---
PROCEDURE INFORMATION: Exam: XR Chest Exam date and time: 11/30/2022 6:32 AM Age: 62 years old Clinical indication: Patient HX: Cough, pre-op; Additional info: Preop TECHNIQUE: Imaging protocol: Radiologic exam of the chest. Views: 1 view. COMPARISON: CR XR CHEST 2V 08/15/2020 11:54 AM FINDINGS: Lungs: Lungs are well aerated without a focal area of consolidation. Pleural spaces: Unremarkable. No pleural effusion. No pneumothorax. Heart/Mediastinum: Unremarkable. No cardiomegaly. Bones/joints: Unremarkable. IMPRESSION: Lungs are well aerated without a focal area of consolidation.
--- NOTE | 2022-11-30 06:32 | ECG_ITS ---
APPROVED REPORT Exam: Resting ECG HR:71 bpm ECG Measurements Heart Rate 71 AXES OK 160 P 46 QRSd 96 QRS 31 QT 367 T 32 QTc 389 Conclusion SINUS RHYTHM NORMAL ECG UNCONFIRMED REPORT Electronically signed by : Mychal Tran MD 11/30/2022 20:34:15
[2022-11-30 07:04] LABS: Chloride 105 mmol/L (98-107); Sodium 140 mmol/L (136-145)
[2022-11-30 07:07] LABS: Basophils % 0.4 % (0.1-2.0); Blood Urea Nitrogen 13 mg/dl (9-20); Carbon Dioxide 28 mmol/L (22.0-30.0); Creatinine Clearance Estimated 141 mL/min (50-200); Eosinophils # 0.4 K/mm3 (0.0-0.4); Eosinophils % 5.6 % (0.1-12.0); Estimated Glomerular Filt Rate 86 ml/min (>60); GFR (African American) 104 ML/MIN (>60); Hematocrit 46.7 % (42.0-52.0); Hemoglobin 14.5 g/dL (14.1-18.0); Lymphocytes # 2.9 K/mm3 (0.7-4.5); Lymphocytes % 36.3 % (10-50); Mean Corpuscular HGB Conc 31.2 g/dL (31.8-35.4); Mean Corpuscular Volume 89.8 fl (80-94); Mean Platelet Volume 8.3 fl (7.4-10.4); Monocytes # 0.5 K/mm3 (0.1-1.0); Monocytes % 6.3 % (1.7-9.3); Neutrophils % 51.3 % (37.0-80.0); Platelet Count 248 K/mm3 (142-424); Red Blood Count 5.19 M/mm3 (4.60-6.20); Red Cell Distribution Width 14.1 % (11.5-17.5); White Blood Count 7.8 K/mm3 (4.8-10.8)
[2022-11-30 07:08] LABS: Calcium 8.3 mg/dl (8.4-10.2); Glucose 118 mg/dl (74-100)
--- NOTE | 2022-11-30 07:09 | P.PN_ITS ---
[facility] Disclaimer: The information contained in this section may have been updated after the patient was seen, as this information can be updated by other users. 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 Anesthesia Checklist Patient Identification Patient Identification: Arm Band Structural Data Admitted From: Home Planned Operative Procedure/s: Left Knee Arthroscopy, Partial Medial Meniscectomy Consent for Planned Operative Procedure(s) Verified: Yes Verified Documents: Surgical Consent and History and Physical NPO Status Verified Time NPO: 00:00 Additional verifications Anesthesia Reactions: No Hx Blood Transfusions: No Blood Transfusion Reaction: No Airway Assessment C-Spine Mobility Assessed: Yes TMJ Mobility Assessed: Yes Dentition: Good Dentition Neurological Assessment Level of Consciousness: Awake and Alert Anesthesia Plan Anesthesia Risk discussed: Yes Anesthesia Plan: Verified ASA Class: II Anesthesia Type: General
--- NOTE | 2022-11-30 08:27 | EXP.OP.NOTE ---
Date of procedure: 11/30/22 Pre-op Diagnosis:: Left knee medial meniscus tear Post-op Diagnosis:: Same Procedure performed:: Left knee arthroscopy with partial medial meniscectomy Surgeon:: Cristian Green DO [employer]:: Mary Booker Anesthesia: GETA Estimated blood loss (mL): 0 Operative findings:: See dictation Operative note:: Patient is identified preoperatively. Left knee marked yes my initials. Transferred operative suite placed upon the operating bed. General anesthesia ministered airway secured. Left lower extremity prepped and draped within the knee mina. Once prepped and draped final operative timeout performed to identify proper patient procedure and extremity. Everyone involved in the case agreed. No counter indications to beginning. Did receive preoperative antibiotics. Marking pen was used to zita the bony landmarks of the knee and standard portal sites. Esmarch was used to exsanguinate the extremity and pneumatic tourniquet inflated to 300 mmHg. Skin knife was used incise standard anterior lateral portal blunt with trocar was placed in the patellofemoral joint diagnostic arthroscopy began. I swept directly into the medial joint line where the anterior medial portal was made under direct visualization. This is exchanged with a probe. Upon probing the posterior horn of the medial meniscus there was a large complex tear of the posterior horn of the medial meniscus. Meniscal root was intact. Using a combination of straight biter and sucker shaver partial medial meniscectomy was performed back to stable rim. Tensions brought intercondylar notch the ACL was seen and intact. Tensions then brought to the lateral joint line. Within the lateral joint line the meniscus was intact cartilage intact. Scope into the medial and lateral gutters there is no other pathology present. Swept back into the patellofemoral joint patella did track midline within the trochlea. There was some mild softening of the trochlea. Attention was brought back into the medial joint line the medial cartilage on the medial femoral condyle had some fraying without loose cartilage. Camera was removed. Joint was drained. Skin was closed with nylon stitch. Sterile dressing placed from toe to thigh. Patient waken anesthesia taken recovery stable condition. Condition: stable Disposition: PACU Complications:: None apparent
--- NOTE | 2022-11-30 08:33 | EXP.ANES.I ---
[facility] Anesthesia Record Part I Anesthesia Record I Intake, IV Amount: 800 Estimated blood loss (mL): 10 Urine output (mL): 0 Blood Pressure: 118/82 SaO2: 92 Pulse Rate: 84 Respiratory Rate: 11 Temperature: 98.7 F Patient is:: Drowsy and Oral/Nasal airway Stable to PACU at:: 08:30
--- NOTE | 2022-11-30 09:33 | P.PNANES_ITS ---
[facility] Anesthesia Record Part II Anesthesia Record Part II Discharge Time: 08:50 Destination: Surgical Day Care (OP Surgery) PACU nurse assessment reviewed?: Yes Patient Condition:: Good Anesthesia Complications:: None Swallowing reflex intact?: Yes Cyanosis?: No Blood Pressure: 136/98 Pulse Rate: 80 Temperature: 97.4 F Mental Status: Alert & Oriented Pain level:: 0 Nausea and/or vomitting:: None Intake, IV Amount: 0
== END 2022-11-30 09:30 | disposition home or self-care (01) ==
PROVIDERS: PCP Family Medicine; Visit Provider Orthopaedic Surgery
PROC: (CPT 29870; principal; 2022-11-30 07:30)
DX: M23.222 Derangement of posterior horn of medial meniscus due to old tear or injury, left knee (principal); Z79.899 Other long term (current) drug therapy; I10 Essential (primary) hypertension
CPT/HCPCS: 29881; 71045; 80048; 85025; 93005; 96374

== ENCOUNTER → 2022-12-17 09:10 | Outpatient (CLI) | payer BC, SELFPAY ==
[2022-12-17 09:48] LABS: Basophils % 0.2 % (0.1-2.0); Eosinophils # 0.3 K/mm3 (0.0-0.4); Eosinophils % 4.2 % (0.1-12.0); Hematocrit 47.2 % (42.0-52.0); Hemoglobin 14.9 g/dL (14.1-18.0); Lymphocytes # 2.5 K/mm3 (0.7-4.5); Mean Corpuscular HGB Conc 31.6 g/dL (31.8-35.4); Mean Corpuscular Hemoglobin 28.2 pg (27.0-31.2); Mean Platelet Volume 7.5 fl (7.4-10.4); Monocytes # 0.5 K/mm3 (0.1-1.0); Monocytes % 6.8 % (1.7-9.3); Neutrophils # 3.4 K/mm3 (1.8-7.8); Neutrophils % 50.8 % (37.0-80.0); Platelet Count 254 K/mm3 (142-424); Red Cell Distribution Width 13.9 % (11.5-17.5); White Blood Count 6.7 K/mm3 (4.8-10.8)
[2022-12-17 10:30] LABS: Chloride 96 mmol/L (98-107); Potassium 4.2 mmoL/L (3.5-5.1); Sodium 140 mmol/L (136-145)
[2022-12-17 10:32] LABS: Blood Urea Nitrogen 19 mg/dl (9-20); Estimated Glomerular Filt Rate 86 ml/min (>60); GFR (African American) 104 ML/MIN (>60)
[2022-12-17 10:33] LABS: Alanine Aminotransferase 36 U/L (12-78); Albumin Level 4.2 g/dl (3.5-5.0); Albumin/Globulin Ratio 1.8 (1.1-1.8); Alkaline Phosphatase 91 U/L (38-126); Anion Gap 15.2 mEq/L (5-15); Aspartate Amino Transferase 29 U/L (17-59); Bilirubin,Total 0.7 mg/dl (0.2-1.3); Calcium 9.2 mg/dl (8.4-10.2); Carbon Dioxide 33 mmol/L (22.0-30.0); Cholesterol 148 mg/dl (140-200); Globulin 2.4 g/dL (1.3-3.2); Glucose 118 mg/dl (74-100); HDL Cholesterol 49 mg/dl (40-60); Total Protein,Serum 6.6 g/dl (6.3-8.2); Triglycerides 236 mg/dl (30-150); VLDL Cholesterol 47 mg/dL (0-40)
[2022-12-17 10:45] LABS: Direct LDL Cholesterol 77.84 mg/dL (100-129)
[2022-12-17 11:05] LABS: Thyroid Stimulating Hormone 1.08 uIU/mL (0.465-4.68)
== END ==
PROVIDERS: PCP Family Medicine; Visit Provider Family Medicine
DX: F32.9 Major depressive disorder, single episode, unspecified (principal); I10 Essential (primary) hypertension; E78.5 Hyperlipidemia, unspecified; E66.9 Obesity, unspecified; Z68.37 Body mass index [BMI] 37.0-37.9, adult; Z12.5 Encounter for screening for malignant neoplasm of prostate
CPT/HCPCS: 36415; 80053; 80061; 84443; 85025; G0103

== ENCOUNTER 2023-01-21 11:00 | Outpatient (RCR) | payer BC, SELFPAY ==
--- NOTE | 2022-12-31 11:59 | HMH.PTOPEV ---
PT Outpatient Evaluation Rehab PT Outpatient Evaluation Start: 12/31/22 11:43 Freq: Status: Active Protocol: Document 12/31/22 11:44 BELINDA (Rec: 12/31/22 11:59 BELINDA [id number]) E-signed By Manuel Morales, PT Outpatient Therapy Subjective History Subjective History Patient is a 62 year old male presenting to outpatient PT with reports of L post- surgical knee pain S/P L knee arthroscopy with partial medial meniscectomy performed 11/30/21. Patient reports a 6 month hx of L knee pain after a fall at home in which he was unable to get up. Comorbidities include hx of CHF, spinal OA, HTN, HL, diabetes, BPH and hernial sx. Chief Complaint Pain,Stiff,Swelling,Gives out/ Unstable Symptom Type Ache,Dull Symptoms Relieved By Rest/Positioning,Ice, Prescription Meds Symptoms Aggravated By Standing,Physical Activity, Walking,Sneeze/Coughing Prior Functional Limitations None Current Functional Limitations Housework,Standing,Squatting, Recreation Activity,Walking, Stairs,Balance Symptom Description Constant but Variable Level of pain today (0-10) 1 Pain scale - at its best (0-10) 1 Pain scale - at its worst (0-10) 3 Hip/Knee Eval Gait Observation General Gait Pattern Observation Antalgic Gait,Decrease Weight Bear (L) Assistive Device Assistive Devices None / NA Palpation Tenderness left Knee Palpation Finding Tenderness Knee Palpation Overall Comment MJL 2/4 MMT Hip Flexion Strength Grade 4 Good Hip Abduction Strength Grade 4 Good Hip Adduction Strength Grade 4 Good Hip Extension Strength Grade 4 Good Hip External Rotation Strength Grade 4 Good Hip Internal Rotation Strength Grade 4 Good Knee Extension Strength Grade 4 Good Knee Flexion Strength Grade 4 Good ROM Hip ROM Reason Not Measured Within Functional Limits Knee Extension Active Range of Motion ( -8 degrees) Knee Flexion Active Range of Motion ( 138 degrees) Special Tests Knee Anterior Artie Test Negative Left Knee Valgus Stress Test Negative Left Knee Varus Stress Test Negative Left Outpatient Therapy Assessment Impairments Problems/Impairmments Palpation Tenderness,Impa
== END 2023-01-21 11:05 | disposition home or self-care (01) ==
LOC: PT 11:00
PROVIDERS: PCP Family Medicine; Visit Provider Orthopaedic Surgery
DX: M25.562 Pain in left knee (principal); Z98.890 Other specified postprocedural states
CPT/HCPCS: 97110; 97163; 97530

== ENCOUNTER → 2023-03-05 10:03 | Outpatient (CLI) | payer BC, SELFPAY ==
[2023-03-05 10:59] LABS: Hemoglobin A1C 6.5 % (4.0-6.0)
[2023-03-05 11:23] LABS: Alanine Aminotransferase 31 U/L (12-78); Albumin Level 4.1 g/dl (3.5-5.0); Alkaline Phosphatase 87 U/L (38-126); Anion Gap 11.5 mEq/L (5-15); Aspartate Amino Transferase 25 U/L (17-59); Bilirubin,Indirect 0.4 mg/dL (0.0-0.9); Bilirubin,Total 0.4 mg/dl (0.2-1.3); Bilirubin,Unconjugated 0.5 mg/dL (0.0-1.1); Blood Urea Nitrogen 16 mg/dl (9-20); Carbon Dioxide 32 mmol/L (22.0-30.0); Chloride 103 mmol/L (98-107); Chol/HDL Ratio 2.8 (1-3.5); Cholesterol 112 mg/dl (140-200); Estimated Glomerular Filt Rate 86 ml/min (>60); GFR (African American) 104 ML/MIN (>60); Glucose 108 mg/dl (74-100); HDL Cholesterol 40 mg/dl (40-60); Magnesium 1.9 mg/dl (1.6-2.3); Potassium 4.5 mmoL/L (3.5-5.1); Sodium 142 mmol/L (136-145); Total Protein,Serum 6.4 g/dl (6.3-8.2); Triglycerides 131 mg/dl (30-150); VLDL Cholesterol 26 mg/dL (0-40)
[2023-03-05 11:34] LABS: Direct LDL Cholesterol 62.02 mg/dL (100-129)
[2023-03-05 11:37] LABS: Free T4 (Free Thyroxine) 1.27 ng/dl (0.78-2.19)
[2023-03-05 11:53] LABS: Thyroid Stimulating Hormone 1.05 uIU/mL (0.465-4.68)
[2023-03-05 13:37] LABS: Basophils % 0.2 % (0.1-2.0); Eosinophils # 0.2 K/mm3 (0.0-0.4); Eosinophils % 2.8 % (0.1-12.0); Hematocrit 47.3 % (42.0-52.0); Hemoglobin 16.3 g/dL (14.1-18.0); Lymphocytes # 2.5 K/mm3 (0.7-4.5); Lymphocytes % 34.1 % (10-50); Mean Corpuscular HGB Conc 34.4 g/dL (31.8-35.4); Mean Corpuscular Hemoglobin 30.5 pg (27.0-31.2); Mean Corpuscular Volume 88.9 fl (80-94); Mean Platelet Volume 8.6 fl (7.4-10.4); Monocytes # 0.5 K/mm3 (0.1-1.0); Monocytes % 7.3 % (1.7-9.3); Neutrophils % 55.5 % (37.0-80.0); Platelet Count 237 K/mm3 (142-424); Red Blood Count 5.32 M/mm3 (4.60-6.20); Red Cell Distribution Width 14.3 % (11.5-17.5); White Blood Count 7.2 K/mm3 (4.8-10.8)
== END ==
PROVIDERS: PCP Family Medicine; Visit Provider Physician Assistant
DX: R60.9 Edema, unspecified (principal); R06.09 Other forms of dyspnea; I51.89 Other ill-defined heart diseases; K21.9 Gastro-esophageal reflux disease without esophagitis; E11.9 Type 2 diabetes mellitus without complications; I63.9 Cerebral infarction, unspecified; I11.9 Hypertensive heart disease without heart failure; G47.33 Obstructive sleep apnea (adult) (pediatric)
CPT/HCPCS: 36415; 80048; 80061; 80076; 83036; 83735; 84439; 84443; 85025

== ENCOUNTER → 2023-03-19 07:35 | Outpatient (CLI) | payer BC, SELFPAY ==
--- NOTE | 2023-03-19 07:39 | CA_ITS ---
APPROVED REPORT EXAM: Comprehensive 2D, Doppler, and color-flow Echocardiogram Swedger: Melissa Johnson CRT Ht: 5 ft 10 in Wt: 268lbs BSA: 2.36 BP: 139/85 mmHg Indications: Chest Pain, Shortness of Breath, Hyperlipidemia, Hypertension/HDD 2D Dimensions LVOT 1.90 cm (M/F) 1.5-2.5 LA Volume 33.20 mL LA Volume Index 14.01 mL/m2 (M/F) 16-34 M-Mode Dimensions RVDd 3.29 cm (0.9-2.6) LA Diam 4.58 cm (1.9-4.0) LVDd 4.89 cm (3.5-5.7) Ao Diam 3.75 cm (2.0-3.7) LVDs 3.50 cm (3.5-5.7) IVSd 1.85 cm (0.6-1.1) PWd 0.57 cm (0.6-1.1) EF (Teich) 54.70% FS 28.40% EDV (Teich) 112.30 mL TAPSE 2.64 (<1.7) ESV (Teich) 50.90 mL LV Diastology E Decel Time 247.00 (160-240 msec) E/A Ratio 0.82 MED E' 10.70 (< 7 cm/sec) MED A' 7.40 cm/s E'/MED E' Ratio 5.36 (>14) LAT E' 10.50 (<10 cm/sec) LAT A' 10.80 cm/s E/LAT E' Ratio 5.47 (>14) Aortic Valve AO Peak GR. 6.60 mmHg Mitral Valve MV A Velocity 70.00 (40-130 cm/s) E/A Ratio 0.82 MV Decel. Time 247.00 (160-240 ms) Pulmonary Valve PV Peak Velocity 134.00 (50-150 cm/s) Tricuspid Valve TR P. Velocity 197.00 cm/s RAP Estimate 10.00 mmHg RVSP 25.50 mmHg Left Ventricle The left ventricle is normal size. The left ventricular systolic function is normal. The left ventricular ejection fraction is within the normal range. There is proximal septal thickness present. There is normal LV segmental wall motion. The left ventricular diastolic function is normal. LVEF is 55-60%. Right Ventricle Right ventricle is mildly dilated. The right ventricular systolic function is normal. Prominent hyperechoic calcifications within the RV apical lumen, likely representing calcified chordae tendineae. Atria The left atrium size is normal. The right atrium size is normal. There is no Doppler evidence of interatrial shunt. Aortic Valve The aorti valve opens well. There is no aortic valvular stenosis. Trace aortic regurgitation. Mitral Valve The mitral valve is normal in structure. No evidence of mitral valve stenosis. Trace mitral regurgitation. Tricuspid Valve The tricuspid valve leaflets are thin and pliable. Trace tricuspid regurgitation. RVS=20-25 mmHg. Pulmonic Valve The pulmonary valve is normal in structure. Trace pulmonic regurgitation. Great Vessels The aortic root is normal in size. The ascending aorta is normal in size. IVC is normal in size and collapses >50% with inspiration. Pericardium There is no pericardial effusion. Other Information Study Quality: Technically Difficult. Technically limited study due to poor accoustic windows. Conclusion This was a technically difficult study due to poor accoustic windows. Normal biventricular systolic function. Mild RV dilation. Prominent hyperechoic calcifications within the RV apical lumen, likely representing calcified chordae tendineae. When visually compared to prior study from 2020, this finding was present and remains unchanged. No significant valvular disease. Electronically signed by : Stacy Rosa, 03/20/2023 14:00:17
--- NOTE | 2023-03-19 07:39 | CA_ITS ---
FINAL REPORT TECHNIQUE: Grayscale, color Doppler and duplex Doppler ultrasound of the kidneys, aorta and renal arteries was performed. Multiple velocities were measured. CLINICAL HISTORY: HTN COMPARISON: None FINDINGS: Aorta velocity: 113 cm/sec Right kidney: 14.1 cm. No evidence of hydronephrosis or mass. Right intrarenal RI: 0.65-0.73 Right renal artery velocity: 188 cm/sec. Right RAR (Renal artery-Aortic Ratio): 1.67 Left Kidney: 13.7 cm. No evidence of hydronephrosis or mass. Left intrarenal RI: 0.52-0.78 Left renal artery velocity: 136 cm/sec. Left RAR (Renal Artery-Aortic Ratio): 1.21 IMPRESSION: Less than 60% stenosis right renal artery. No evidence of stenosis left renal artery. CT angiogram or postcontrast MR angiogram would be more sensitive for evaluation of possible renal artery stenosis. Reviewed, Interpreted and Dictated by Villa Adams III, MD Transcribed by Isaura Rivera Authenticated and [facility]
--- NOTE | 2023-03-19 12:54 | US_ITS ---
FINAL REPORT TECHNIQUE: Ultrasound images of the kidneys and bladder were obtained. CLINICAL HISTORY: R60.9 - Edema, unspecified COMPARISON: None FINDINGS: The right kidney measures 12.8 cm in length. It is normal in echogenicity. There is no hydronephrosis. There is a single cyst present in the right kidney measuring 1.4 cm in diameter. The left kidney measures 13.9 cm in length. It is normal in echogenicity. There is no hydronephrosis. IMPRESSION: Single cyst present in the right kidney as described. No hydronephrosis is seen. Reviewed, Interpreted and Dictated by Villa Adams III, MD Transcribed by Jeanne Reis Authenticated and [facility]
== END ==
PROVIDERS: PCP Family Medicine; Visit Provider Physician Assistant
DX: R06.09 Other forms of dyspnea (principal); R60.9 Edema, unspecified; I10 Essential (primary) hypertension; G47.33 Obstructive sleep apnea (adult) (pediatric); I51.89 Other ill-defined heart diseases; K21.9 Gastro-esophageal reflux disease without esophagitis
CPT/HCPCS: 76770; 93306; 93976

== ENCOUNTER → 2023-08-11 08:18 | Outpatient (CLI) | payer BC, SELFPAY ==
[2023-08-11 09:04] LABS: Alanine Aminotransferase 26 U/L (12-78); Albumin/Globulin Ratio 1.6 (1.1-1.8); Alkaline Phosphatase 75 U/L (38-126); Anion Gap 6.6 mEq/L (5-15); Aspartate Amino Transferase 28 U/L (17-59); Bilirubin,Total 0.6 mg/dl (0.2-1.3); Blood Urea Nitrogen 13 mg/dl (9-20); Calcium 8.4 mg/dl (8.4-10.2); Carbon Dioxide 33 mmol/L (22.0-30.0); Chloride 101 mmol/L (98-107); Chol/HDL Ratio 3.9 (1-3.5); Cholesterol 159 mg/dl (140-200); Estimated Glomerular Filt Rate 76 ml/min (>60); GFR (African American) 92 ML/MIN (>60); Globulin 2.5 g/dL (1.3-3.2); Glucose 109 mg/dl (74-100); HDL Cholesterol 41 mg/dl (40-60); Potassium 3.6 mmoL/L (3.5-5.1); Sodium 137 mmol/L (136-145); Total Protein,Serum 6.5 g/dl (6.3-8.2); Triglycerides 213 mg/dl (30-150); VLDL Cholesterol 43 mg/dL (0-40)
[2023-08-11 09:15] LABS: Direct LDL Cholesterol 87.21 mg/dL (100-129)
[2023-08-11 09:29] LABS: Hemoglobin A1C 5.9 % (4.0-6.0)
== END ==
LOC: LAB 08:19
PROVIDERS: PCP Family Medicine; Visit Provider Family Medicine
DX: E78.5 Hyperlipidemia, unspecified (principal); F32.9 Major depressive disorder, single episode, unspecified; I10 Essential (primary) hypertension; R73.03 Prediabetes
CPT/HCPCS: 36415; 80053; 80061; 83036

== ENCOUNTER 2023-08-22 09:25 | Emergency (ER) | payer BC, SELFPAY ==
[2023-08-22 10:05] VITALS: BP 144/85; PULSE 87; RESP 19; TEMP 36.6; O2SAT 98; BMI 36.3
--- NOTE | 2023-08-22 10:21 | EXP.UTC ---
Discharge Plan Disposition Patient Disposition: Home, Self-Care Condition: Good Prescriptions Prescriptions: New doxycycline hyclate 100 mg capsule 100 mg PO BID Qty: 20 0RF benzonatate 100 mg capsule 100 mg PO TID PRN (Reason: cough) Qty: 30 0RF methylprednisolone [Medrol (Luis Eduardo)] 4 mg tablets,dose pack See Rx Instructions .Route .COMPLEX 6 Days Qty: 21 0RF Rx Instructions: taper pack; guaifenesin [Mucinex] 600 mg tablet extended release 12hr 1,200 mg PO BID PRN (Reason: cough) Qty: 20 0RF No Action fluoxetine 40 mg capsule 40 mg PO DAILY Patient Comments: TAKE 1 CAPSULE BY MOUTH ONCE DAILY bumetanide 2 mg tablet 2 mg PO DAILY Patient Comments: TAKE 1 TABLET BY MOUTH ONCE DAILY nabumetone 750 mg tablet 750 mg PO DAILY Patient Comments: TAKE 2 TABLETS BY MOUTH ONCE DAILY omeprazole 40 mg capsule,delayed release(DR/EC) 40 mg PO DAILY Patient Comments: TAKE 1 CAPSULE BY MOUTH ONCE DAILY tamsulosin 0.4 mg capsule 0.4 mg PO DAILY Patient Comments: TAKE 1 CAPSULE BY MOUTH TWICE DAILY buspirone 15 mg tablet 15 mg PO DAILY Patient Comments: TAKE 1 TABLET BY MOUTH TWICE DAILY valsartan 160 mg tablet 160 mg PO DAILY Patient Comments: TAKE 1 TABLET BY MOUTH ONCE DAILY rosuvastatin 10 mg tablet 10 mg PO DAILY Patient Comments: TAKE 1 TABLET BY MOUTH ONCE DAILY Referrals Follow up/Referrals: Colin Caldera MD [Primary Care Provider] - See instructions Activity Restrictions/Add. Instructions Additional Instructions/Restrictions: *Monitor Temp, Over the counter Motrin or Tylenol as directed/as needed Tylenol every 4 hours and Motrin every 6 hours (as long as your family doctor has told you that you can take it) for fever or pain. and straight to ER if unable to lower temp less than 101.0 after medication given *Warm salt water gargles may help to soothe the throat *Throat Lozenges? *Warm fluids like tea with honey may help to soothe the throat? *Sleep elevated *Humidifier/Vaporizer Take medication as prescribed Follow up IMMEDIATELY for new or worsening symptoms or no Noticeable improvement over the next 48-72 hours. 911 for difficulty breathing or swallowing Clinical Impressions Clinical Impression: Bronchitis Sinusitis Qualifiers: Sinusitis location: unspecified location Chronicity: unspecified Qualified Code(s): J32.9 - Chronic sinusitis, unspecified Instructions Patient Instructions: Sinusitis, Acute Bronchitis, DI for Sinusitis Discharge ED Provider: Mary Suarez [facility] [place] General Stated complaint: cough, congestion, body aches Mode of Arrival: Ambulatory Source of Information: Patient Limitations: No Limitations Time Seen by Provider: 08/22/23 10:21 Description of Symptoms (Recalled from Triage Doc. by RN): PATIENT C/O CONGESTION, COUGH AND BODY ACHES X 2 DAYS HEENT Symptoms (Recalled from RN notes): Yes Resp Symptoms (Recalled from RN notes): Yes Skin Symptoms (Recalled from RN notes): No MS Symptoms (Recalled from RN notes): No Functional Status (Recalled from RN notes): WNL History of Present Illness Provider Complaint: Patient states that he started with sinus pain and pressure then a couple days ago it got worse and having drainage in the back of his throat, cough and over all not feeling well States feels like he has a bad sinus infection Related Data Home Medications Medication Instructions Recorded Confirmed bumetanide 2 mg tablet 2 mg PO DAILY 08/22/23 08/22/23 buspirone 15 mg tablet 15 mg PO DAILY 08/22/23 08/22/23 fluoxetine 40 mg capsule 40 mg PO DAILY 08/22/23 08/22/23 nabumetone 750 mg tablet 750 mg PO DAILY 08/22/23 08/22/23 omeprazole 40 mg capsule,delayed 40 mg PO DAILY 08/22/23 08/22/23 release rosuvastatin 10 mg tablet 10 mg PO DAILY 08/22/23 08/22/23 tamsulosin 0.4 mg capsule 0.4 mg PO DAILY 08/22/23 08/22/23 valsartan 160 mg tablet 160 mg PO DAILY 08/22/23 08/22/23 Previous Rx's Medication Instructions Recorded benzonatate 100 mg capsule 100 mg PO TID PRN cough #30 caps 08/22/23 doxycycline hyclate 100 mg capsule 100 mg PO BID #20 caps 08/22/23 guaifenesin 600 mg tablet, 1,200 mg PO BID PRN cough #20 tabs 08/22/23 extended release 12 hr (Mucinex) methylprednisolone 4 mg tablets in See Rx Instructions .Route 08/22/23 a dose pack (Medrol (Luis Eduardo)) .COMPLEX 6 days #21 tabs Allergies Allergy/AdvReac Type Severity Reaction Status Date / Time No Known Allergies Allergy Verified 07/05/23 15:54 Worker's Comp Is this a Worker's Comp case?: No [facility] Disclaimer: The information contained in this section may have been updated after the patient was seen, as this information can be updated by other users. Medical History (Updated 08/22/23 @ 10:30 by Mary Suarez APRN) Chest pain Fatigue Gastroesophageal reflux disease HLD (hyperlipidemia) HTN (hypertension) SOB (shortness of breath) on exertion Tear meniscus knee Surgical History H/O hemorrhoidectomy H/O hernia repair Family History (Updated 07/05/23 @ 16:15 by Maris Zee) Other Coronary artery disease Heart attack Hypertension No significant family history Social History Smoking Status: Never smoker second hand exposure: No alcohol intake: never substance use type: denies use current occupational status: employed Travel in the last 8 weeks: None household members: spouse housing: house 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 current occupational exposures/hazards: Yes caffeine: Yes ROS Obtained: Yes All systems reviewed & no additional complaints except as documented and Yes Systems reviewed as appropriate & no additional complaints except as documented Constitutional Constitutional: Reports system reviewed and no additional complaints, except as documented, Reports as per HPI and Reports body ache ENT Ears, Nose, Mouth, and Throat: Reports system reviewed and no additional complaints, except as documented, Reports as per HPI, Reports otalgia (pressure), Reports sinus pain and Reports sinus pressure Cardiovascular Cardiovascular: Reports system reviewed and no additional complaints, except as documented and Reports as per HPI Respiratory Respiratory: Reports system reviewed and no additional complaints, except as documented, Reports as per HPI and Reports cough Gastrointestinal Gastrointestingal: Reports system reviewed and no additional complaints, except as documented and as per HPI Physical Exam General General appearance: alert and in no apparent distress ENT ENT exam: Present mucous membranes moist Expanded ENT Exam TM/Canal exam: Bilateral TM: bulging Nose exam: Present sinus tenderness Throat exam: Present other (Pharygeal erythema noted with PND) Respiratory Respiratory exam: Present normal lung sounds bilaterally; Absent respiratory distress or wheezes Cardiovascular Cardiovascular exam: Present regular rate, normal rhythm and normal heart sounds Abdominal Exam Abdominal exam: Present soft and normal bowel sounds; Absent distention or tenderness Neurological Exam Neurological exam: Present alert, oriented X3 and normal gait Medical Decision Making Obi Inquiry Pt receiving controlled substance: No Obi was queried for this patient: No Vital Signs: 08/22/23 10:05 Temperature 97.8 F Temperature Source Oral Pulse Rate [Left Brachial] 87 Respiratory Rate 19 Blood Pressure [Left Arm] 144/85 H Blood Pressure Mean [Left Arm] 104 Blood Pressure Source [Left Arm] Automatic Cuff Blood Pressure Position [Left Arm] Sitting 02 Sat by Pulse Oximetry 98 Oxygen Delivery Method Room Air Lab Data Lab results reviewed: Yes I reviewed the patient's lab results. Medical Decision Narrative: Patient states that he has taken Steriods in the past without complications or reactions
[2023-08-22 10:30] LABS: UTC Influenza A Antigen Negative (Negative); UTC Influenza B Antigen Negative (Negative)
[2023-08-22 10:32] VITALS: BP 144/85; PULSE 87; RESP 19; TEMP 36.6; O2SAT 98
== END 2023-08-22 10:33 | disposition home or self-care (01) ==
PROVIDERS: Emergency Provider Nurse Practitioner; PCP Family Medicine
DX: J20.9 Acute bronchitis, unspecified (principal); J01.90 Acute sinusitis, unspecified; R09.81 Nasal congestion; R50.9 Fever, unspecified; H92.03 Otalgia, bilateral; M79.18 Myalgia, other site; I10 Essential (primary) hypertension; E78.5 Hyperlipidemia, unspecified; K21.9 Gastro-esophageal reflux disease without esophagitis
CPT/HCPCS: 87804; 99212; 99214; G0463

== ENCOUNTER 2023-11-26 15:19 | Emergency (ER) | payer BC, SELFPAY ==
[2023-11-26 15:30] VITALS: BP 112/85; PULSE 80; RESP 18; TEMP 36.8; O2SAT 96; BMI 36.7
--- NOTE | 2023-11-26 15:55 | EXP.UTC ---
Discharge Plan Disposition Patient Disposition: Home, Self-Care Condition: Good Prescriptions Prescriptions: New doxycycline hyclate 100 mg capsule 100 mg PO BID Qty: 20 0RF benzonatate 100 mg capsule 100 mg PO TID PRN (Reason: cough) Qty: 30 0RF methylprednisolone [Medrol (Luis Eduardo)] 4 mg tablets,dose pack See Rx Instructions .Route .COMPLEX 6 Days Qty: 21 0RF Rx Instructions: taper pack; No Action fluoxetine 40 mg capsule 40 mg PO DAILY Patient Comments: TAKE 1 CAPSULE BY MOUTH ONCE DAILY bumetanide 2 mg tablet 2 mg PO DAILY Patient Comments: TAKE 1 TABLET BY MOUTH ONCE DAILY nabumetone 750 mg tablet 750 mg PO DAILY Patient Comments: TAKE 2 TABLETS BY MOUTH ONCE DAILY omeprazole 40 mg capsule,delayed release(DR/EC) 40 mg PO DAILY Patient Comments: TAKE 1 CAPSULE BY MOUTH ONCE DAILY buspirone 10 mg tablet 10 mg PO DAILY montelukast 10 mg tablet 10 mg PO DAILY valsartan 160 mg tablet 160 mg PO DAILY Patient Comments: TAKE 1 TABLET BY MOUTH ONCE DAILY rosuvastatin 10 mg tablet 10 mg PO DAILY Patient Comments: TAKE 1 TABLET BY MOUTH ONCE DAILY Referrals Follow up/Referrals: Colin Caldera MD [Primary Care Provider] - See instructions Activity Restrictions/Add. Instructions Additional Instructions/Restrictions: Start antibiotic today. Be sure to complete entire prescription even if feeling better Monitor temp. Tylenol every 4 hours as needed and / or ibuprofen every 6 hours as needed ( As long as your primary care physician has told you that it ok to take both. For fever/aches/pains ER if no less than 101 despite Tylenol or Motrin Humidifier/vaporizer or hot steamy shower *Tessalon Perles will not cause drowsiness but use at bedtime to help stop cough so that you may get some rest. *Start steroid today. Helps with inflammation therefore, cough and wheezing. Follow directions on the package. Reviewed side effects. Patient reports taking them before. Follow up IMMEDIATELY for new or worsening of symptoms OR no noticeable improvement over the next 48-72 hours. 911 immediately for any life threatening symptoms such as chest pain or difficulty breathing Clinical Impressions Clinical Impression: Bronchitis, Sinusitis Instructions Patient Instructions: DI for Sinusitis, Acute Bronchitis Discharge ED Provider: Mary Suarez [facility] HPI General Stated complaint: Cough,congestion,MUÑOZ Mode of Arrival: Ambulatory Source of Information: Patient Limitations: No Limitations Time Seen by Provider: 11/26/23 16:01 Description of Symptoms (Recalled from Triage Doc. by RN): PATIENT C/O PRODUCTIVE COUGH, CONGESTION, AND SINUS PRESSURE X 3 DAYS HEENT Symptoms (Recalled from RN notes): Yes Resp Symptoms (Recalled from RN notes): Yes Skin Symptoms (Recalled from RN notes): No MS Symptoms (Recalled from RN notes): No Functional Status (Recalled from RN notes): WNL History of Present Illness Provider Complaint: Patient states that he has been having sinus pain and pressure, cough, and at times coughing up some mucous here and there States today he was still feeling bad so he came in Related Data Home Medications Medication Instructions Recorded Confirmed bumetanide 2 mg tablet 2 mg PO DAILY 11/26/23 11/26/23 buspirone 10 mg tablet 10 mg PO DAILY 11/26/23 11/26/23 fluoxetine 40 mg capsule 40 mg PO DAILY 11/26/23 11/26/23 montelukast 10 mg tablet 10 mg PO DAILY 11/26/23 11/26/23 nabumetone 750 mg tablet 750 mg PO DAILY 11/26/23 11/26/23 omeprazole 40 mg capsule,delayed 40 mg PO DAILY 11/26/23 11/26/23 release rosuvastatin 10 mg tablet 10 mg PO DAILY 11/26/23 11/26/23 valsartan 160 mg tablet 160 mg PO DAILY 11/26/23 11/26/23 Previous Rx's Medication Instructions Recorded benzonatate 100 mg capsule 100 mg PO TID PRN cough #30 caps 11/26/23 doxycycline hyclate 100 mg capsule 100 mg PO BID #20 caps 11/26/23 methylprednisolone 4 mg tablets in See Rx Instructions .Route 11/26/23 a dose pack (Medrol (Luis Eduardo)) .COMPLEX 6 days #21 tabs Allergies Allergy/AdvReac Type Severity Reaction Status Date / Time No Known Allergies Allergy Verified 10/13/23 10:40 Worker's Comp Is this a Worker's Comp case?: No [facility] Disclaimer: The information contained in this section may have been updated after the patient was seen, as this information can be updated by other users. Medical History (Updated 11/26/23 @ 16:04 by Mary Suarez APRN) Sinusitis Tear meniscus knee HLD (hyperlipidemia) Flu-like symptoms Bronchitis Edema Sinusitis Chest pain Fatigue SOB (shortness of breath) on exertion Gastroesophageal reflux disease HTN (hypertension) Surgical History H/O hemorrhoidectomy H/O hernia repair Family History Other Coronary artery disease Heart attack Hypertension No significant family history Social History Smoking Status: Never smoker second hand exposure: No alcohol intake: never substance use type: denies use current occupational status: employed Travel in the last 8 weeks: None household members: spouse housing: house 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 current occupational exposures/hazards: Yes caffeine: Yes ROS Obtained: Yes All systems reviewed & no additional complaints except as documented and Yes Systems reviewed as appropriate & no additional complaints except as documented Constitutional Constitutional: Reports system reviewed and no additional complaints, except as documented and Reports as per HPI ENT Ears, Nose, Mouth, and Throat: Reports system reviewed and no additional complaints, except as documented, Reports as per HPI, Reports sinus pain and Reports sinus pressure Cardiovascular Cardiovascular: Reports system reviewed and no additional complaints, except as documented and Reports as per HPI Respiratory Respiratory: Reports system reviewed and no additional complaints, except as documented, Reports as per HPI, Reports chest congestion and Reports cough Gastrointestinal Gastrointestingal: Reports system reviewed and no additional complaints, except as documented and as per HPI Physical Exam General General appearance: alert and in no apparent distress ENT ENT exam: Present mucous membranes moist Expanded ENT Exam Nose exam: Present sinus tenderness Throat exam: Present other (Pharyngeal erythema noted with PND) Respiratory Respiratory exam: Present normal lung sounds bilaterally; Absent respiratory distress or wheezes Cardiovascular Cardiovascular exam: Present regular rate, normal rhythm and normal heart sounds Neurological Exam Neurological exam: Present alert, oriented X3 and normal gait Medical Decision Making Obi Inquiry Pt receiving controlled substance: No Obi was queried for this patient: No Vital Signs: 11/26/23 15:30 Temperature 98.3 F Temperature Source Oral Pulse Rate [Left Brachial] 80 Respiratory Rate 18 Blood Pressure [Left Arm] 112/85 Blood Pressure Mean [Left Arm] 94 Blood Pressure Source [Left Arm] Automatic Cuff Blood Pressure Position [Left Arm] Sitting 02 Sat by Pulse Oximetry 96 Oxygen Delivery Method Room Air Medical Decision Narrative: Patient states that he has taken Medrol in the past without complications or reactions
[2023-11-26 15:56] VITALS: BP 112/85; PULSE 80; RESP 18; TEMP 36.8; O2SAT 96
== END 2023-11-26 16:04 | disposition home or self-care (01) ==
PROVIDERS: Emergency Provider Nurse Practitioner; PCP Family Medicine
DX: J20.9 Acute bronchitis, unspecified (principal); J01.90 Acute sinusitis, unspecified; R05.9 Cough, unspecified; R09.81 Nasal congestion; I10 Essential (primary) hypertension; E78.5 Hyperlipidemia, unspecified; K21.9 Gastro-esophageal reflux disease without esophagitis
CPT/HCPCS: 99212; 99214; G0463

== ENCOUNTER 2024-04-09 08:46 | Outpatient (CLI) | payer BC, SELFPAY ==
--- OUTSIDE RECORDS SUMMARY | 2024-04-09 08:49 | XMS_ITS ---
[facility] Address [address] [facility] [address] [facility] [address] [place] [phone] Care Team Providers Care Collar Turner Operator Name Role Phone Parveen Caldera Primary Care Provider [phone] ALLERGIES No Known Allergies REASON FOR VISIT med checkup, Needs labs with PSA & shingles vaccine MEDICATIONS Medication SIG (Take, Route, Frequency, Duration) Notes Start Date End Date Status Nabumetone 750 MG Take 2 tablets by mouth once daily for 90 Active Bisoprolol Fumarate 10 MG 1 tab(s) orally once a day Active Testosterone Cypionate 100 MG/ML as directed intramuscularly Active Valsartan 160 MG 1 tablet Once a day Active busPIRone HCl 10 MG 1.5 tablet Orally Twice a day for 90 days Active Vitamin D3 50 MCG (2000 UT) 2 tablet Orally Once a day 03/05/2023 Active Tamsulosin HCl 0.4 MG 1 cap(s) orally once a day Active Fish Oil 1000 MG 1 capsule Orally Onc e a day for 30 day(s) Active Bumetanide 2 MG 1 tablet Orally Once a day for 30 day(s) Active Vitamin D3 25 MCG [...] Choice 1.5 GM as directed Orally Active PROBLEMS Problem Type ICD Code Onset Dates Problem Status W/U Status Risk SNOMED Code Notes Problem Hyperglycemia (R73.9) Active confirmed Hyperglycemia (68635190) VITAL SIGNS Weight 253 lbs 04/04/2024 Blood pressure systolic 138 mm Hg 04/04/20 24 Blood pressure diastolic 80 mm Hg 024 Heart Rate 79 /min 04/04/2024 Height 70.50 in 04/04/2024 BMI 35.78 kg/m2 04/04/2024 Encounters Encounter Location Date Provider Diagnosis [facility] [address] [facility] [address] [place] [id number] 04/04/2024 Parveen Caldera Hyperglycemia R73.9 ; REM sleep behavior 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 ; HTN (hypertension) I10 ; GERD (gastroesophageal reflux disease) K21.9 ; Hypotestosteronism E29.1 ; Dyslipidemia E78.5 and JHOAN (obstructive sleep apnea) G47.33 ASSESSMENTS Encounter Date Diagnosis Assessment Notes Treatment Notes Treatment Clinical Notes 04/04/2024 Hyperglycemia (ICD-1 0 - R73.9) 04/04/2024 REM sleep behavior disorder (ICD-10 - G47.52) 04/04/2024 HTN (hypertension) (ICD-10 - I10) 04/04/2024 GERD (gastroesophage al reflux disease) (ICD-10 - K21.9) 04/04/2024 Hypotestosteronism (ICD-10 - E29.1) 04/04/2024 Dyslipidemia (ICD-10 - E78.5) 04/04/2024 JHOAN (obstructive sle ep apnea) (ICD-10 - G47.33) PLAN OF TREATMENT Medication Medication Name Sig Start Date Stop [...] MG 1 tablet Orally Once a day Pending Test Test Name Order Date H-CBC 04/04/2024 H-Lipid Panel 04/04/2024 H-CMP 04/04/2024 H-Glycohemoglobin A1C 04/04/2024 H-PSA 04/04/2024 H-Testosterone, total 04/04/2024 Next Appt Details Follow Up: 6 Months, Reason: Progress Notes * Examination Category Sub-Category Detail Notes General Examination Heart: RSR Lungs: clear to auscultatio n Extremities: Trace ankle edema General Appearance: NAD Skin: No skin lesions or r pk in the left axilla History and Physical Notes * HPI (History of Present Illness) Category Sub-Category Detail Notes Cardiology Short of Breath Chest Pain Palpitations Leg Edema
--- OUTSIDE RECORDS SUMMARY | 2024-04-09 08:49 | XMS_ITS ---
Author Organization [facility] Address [address] [facility] [address] [place] [phone] Care Team Providers Care Television Service Engineer Name Role Phone Parveen Caldera Primary Care Provider REASON FOR VISIT Refills MEDICATIONS Medication SIG (Take, Route, Frequency, Duration) Notes Start Date End Date Status FLUoxetine HCl 40 MG 1 tablet Orally Once a day for 30 days please keep appointment Active Encounters Encounter Location Date Provider Diagnosis [facility] [address] [facility] [address] [place] [phone] 03/30/2024 Parveen Caldera PLAN OF TREATMENT Medication Medication Name Sig Start Date Stop Date Notes FLUoxetine HCl 40 MG 1 tablet Orally Once a day for 30 days please keep appointm ent
--- OUTSIDE RECORDS SUMMARY | 2024-04-09 08:49 | XMS_ITS ---
Author Organization [facility] Address [address] [facility] [address] [place] [phone] Care Team Providers Care Enameler Name Role Phone Parveen Caldera Primary Care Provider REASON FOR VISIT Refills MEDICATIONS Medication SIG (Take, Route, Frequency, Duration) Notes Start Date End Date Status FLUoxetine HCl 40 MG 1 tablet Orally Onc e a day for 30 days due for 6 month check up Active Encounters Encounter Location Date Provider Diagnosis Phi [address] [facility] [address] [place] [phone] 02/28/2024 Parveen Caldera PLAN OF TREATMENT Medication Medication Name Sig Start Date Stop Date Notes FLUoxetine HCl 40 MG 1 tablet Orally Onc e a day for 30 days due for 6 month [facility] k up
--- OUTSIDE RECORDS SUMMARY | 2024-04-09 08:50 | XMS_ITS | Patient Health Record ---
Author Organization [facility] Address [address] [facility] [address] [place] [phone] Care Team Providers Care Heel Sander Rubber Name Role Phone Parveen Caldera Primary Care Provider [phone] ALLERGIES No Known Allergies RESULTS Component Value Reference Range Notes H-Glycohemoglobin A1C Reviewed date:08/18/2023 03:58:05 PM Interpretation:5.9 Performing Lab: Notes/Report: HGBA1C 5.9 4.0-6.0 % < 6% Non-Diabetic Level < 7% Controlled Diabetic Level > 8% Poorly Controlled Diabetic Level H-CMP Reviewed date:08/18/2023 03:58:05 PM Interpretation:co2- 33, gluc 109 Performing Lab: Notes/Report: NA 137 136-145 mmol/L K 3.6 3.5-5.1 mmoL/L CL 101 98-107 mmol/L CO2 33 22.0-30.0 mmol/L GAP 6.6 5-15 mEq/L BUN 13 9-20 mg/dl CREATT 1.00 0.66-1.25 mg/dl GFRAA 92 >60 ML/MIN EGFR 76 >60 ml/min GLU 109 74-100 mg/dl CA 8.4 8.4-10.2 mg/dl BILIT 0.6 0.2-1.3 mg/dl AST 28 17-59 U/L ALT 26 12-78 U/L TP 6.5 6.3-8.2 g/dl ALB 4.0 3.5-5.0 g/dl GLOB 2.5 1.3-3.2 g/dL AGRATIO 1.6 1.1-1.8 ALP 75 38-126 U/L H-Lipid Panel Reviewed date:08/18/2023 03:58:05 PM Interpretation:trigs 213, dldl 87, vldl 43, chol/hdl 3.9 Performing Lab: Notes/Report: Patient Fasting? Y TRIG 213 30-150 mg/dl CHOL 159 140-200 mg/dl DLDL 87.21 100-129 mg/dL VLDL 43 0-40 mg/dL HDL 41 40-60 mg/dl CHLHDL 3.9 1-3.5 REASON FOR REFERRAL No Information MEDICATIONS Medication SIG (Take, Route, Frequency, Duration) Notes Start Date End Date Status Bisoprolol Fumarate 10 MG 1 tab(s) orally once a day Active Omeprazole 40 MG 1 cap(s) orally once a day Active Rosuvastatin Calcium 10 MG 1 tablet Orally Once a day Active clonazePAM 0.5 MG 1 tablet Orally At B ed Time 04/04/2024 Active FLUoxetine HCl 40 MG 1 tablet Orally Once a day please keep appointment Active Nabumetone 750 MG Take 2 tablets by mouth once daily for 90 Active Vitamin D3 50 MCG (2000 UT) 2 tablet Orally Once a day 03/05/2023 Active Tamsulosin HCl 0.4 MG 1 cap(s) orally once a day Active Testosterone Cypionate 100 MG/ML as directed intramuscularly Active Valsartan 160 MG 1 tablet Once a day Active Fiber Choice 1.5 GM as directed Orally Active Fish Oil 1000 MG 1 capsule Orally Onc e a day for 30 day(s) Active busPIRone HCl 10 MG 1.5 tablet Orally Twice a day for 90 days Active Bumetanide 2 MG 1 tablet Orally Once a day for 30 day(s) Active Vitamin D3 25 MCG (1000 UT) 1 tab(s) orally once a day 01/06/2012 Active IMMUNIZATIONS Vaccine Route Administration Date Status Comme nts Tetanus Tdap-Adacel (over 7yrs) IM Intramuscular 03/01/2020 Administered Fluzone Quad (6months&older) Unknown 05/14/2021 Administered Fluzone PF Quad (6-35 months) Unknown 06/19/2018 Administered Fluzone PF Quad (6-35 months) Unknown 07/08/2019 Administered COVID 19 Pfizer Unknown 11/22/2020 Administered SOCIAL HISTORY Sex Assigned At : Social History Observation Description Sex Assigned At Unknown PROBLEMS Problem Type ICD Code Onset Dates Problem Status W/U Status Risk SNOMED Code Notes Problem GERD (gastroesophageal reflux disease) (K21.9) Active confirmed Gastroesophagea l reflux disease (187078199) Problem Hyperglycemia (R73.9) Active confirmed Hyperglycemia (09868875) Problem HTN (hypertension) (I10) Active confirmed Hypertension (72576850) Problem Vitamin D deficiency (E55.9) Active confirmed 61975992 Problem Primary generalized (osteo)arthritis (M15.0) Active confirmed 536423106 Problem Mixed hyperlipidemia (E78.2) Active confirmed Mixed hyperlipidemia (917725021) Problem REM sleep behavior disorder (G47.52) Active confirmed REM sleep behavior disorder (401287067) Problem Left ventricular hypertrophy (I51.7) Active confirmed 12925951 Problem Depression (F32.9) Active confirmed Dep ression (156444413) Problem JHOAN (obstructive sleep apnea) (G47.33) Active confirmed Obstructive sle ep apnea syndrome (70493560) Problem BMI 37.0-37.9, adult (Z68.37) Active confirmed Obese class II (130345282003428) Problem Dyslipidemia (E78.5) Active confirmed D yslipidemia (237553445) Problem Allergic rhinitis, seasonal (J30.2) Active confirmed Seasonal al lergic rhinitis (700517226) Problem ED (erectile dysfunction) (N52.9) Active confirmed Problem Hypotestosteronism (E29.1) Active confirmed Hypotestosteron ism (5035360333756) VITAL SIGNS Heart Rate 79 /min 04/04/2024 Blood pressure diastolic 80 mm Hg 04/04/2024 Height 70.50 in 04/04/2024 Blood pressure systolic 138 mm Hg 04/04/2024 Weight 253 lbs 04/04/2024 BMI 35.78 kg/m2 04/04/2024 Encounters Encounter Location Date Provider Diagnosis [facility] [address] [place], [place] [phone] 04/13/2023 R Yomi Werner Depression F32.9 and Primary generalized (osteo)arthritis M15.0 [facility] [address] [place], [place] [id number] 04/22/2023 R Yomi Werner Depression F32.9 ; P rimary generalized (osteo)arthritis M15.0 and URI (upper respiratory infection) J06.9 [facility] [address] [facility] [address] [place], [place] [phone] 04/29/2023 R Yomi Werner Depression F32.9 [facility] [address] [facility] [address] [place], [place] [id number] 06/03/2023 R Yomi Werner HTN (hypertension) I 10 [facility] [address] [place], [place] [id number] 08/05/2023 R Yomi Werner REM sleep behavior 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 ; Depression F32.9 ; JHOAN (obstructive sleep apnea) G47.33 ; HTN (hypertension) I10 ; Dyslipidemia E78.5 and Prediabetes R73.03 [facility] [address] [facility] [address] [place] [phone] 08/17/2023 R Yomi Werner [facility] [address] [place], [place] [id number] 10/04/2023 R Yomi Werner [facility] [address] [place], [place] [id number] 10/28/2023 R Yomi Werner Depression F32.9 [facility] [address] [place], [place] [id number] 02/28/2024 R Yomi Werner [facility] [address] [place] [id number] 03/30/2024 R Yomi Werner [facility] [address] [place], [place] [id number] 04/04/2024 R Yomi Werner Hyperglycemia R73.9 ; REM sleep behavior 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 ; HTN (hypertension) I10 ; GERD (gastroesophageal reflux disease) K21.9 ; Hypotestosteronism E29.1 ; Dyslipidemia E78.5 and JHOAN (obstructive sleep apnea) G47.33 ASSESSMENTS Encounter Date Diagnosis Assessment Notes Treatment Notes Treatment Clinical Notes 04/04/2024 Hyperglycemia (ICD-1 0 - R73.9) 04/04/2024 REM sleep behavior disorder (ICD-10 - G47.52) 10/28/2023 Depression (ICD-10 - F32.9) 08/05/2023 REM sleep behavior disorder (ICD-10 - G47.52) Suspect neurology was considering Clonazepam but will try to confirm 08/05/2023 Depression (ICD-10 - F32.9) 06/03/2023 HTN (hypertension) (ICD-10 - I10) 04/29/2023 Depression (ICD-10 - F32.9) He is released to return to work on 05/03/2023 Again, encouraged more socialization 04/13/2023 Primary generalized (osteo)arthritis (ICD-10 - M15.0) 04/13/2023 Depression (ICD-10 - F32.9) Clinically improving. Patient remain off work while continuing to adjust medication. BuSpar is added to augment the fluoxetine and assist with some symptoms of anxiety Again, encouraged more socialization 04/22/2023 Primary generalized (osteo)arthritis (ICD-10 - M15.0) 04/22/2023 Depression (ICD-10 - F32.9) He continues to show improvement. Plan to increase his BuSpar to 15 mg twice daily and follow-up again in a week. 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 He tends to agree. Again, encouraged more socialization 04/22/2023 URI (upper respirato ry infection) (ICD-10 - J06.9) 08/05/2023 JHOAN (obstructive sle ep apnea) (ICD-10 - G47.33) 04/04/2024 HTN (hypertension) (ICD-10 - I10) 08/05/2023 HTN (hypertension) (ICD-10 - I10) 04/04/2024 GERD (gastroesophage al reflux disease) (ICD-10 - K21.9) 04/04/2024 Hypotestosteronism (ICD-10 - E29.1) 08/05/2023 Dyslipidemia (ICD-10 - E78.5) 08/05/2023 Prediabetes (ICD-10 - R73.03) 04/04/2024 Dyslipidemia (ICD-10 - E78.5) 04/04/2024 JHOAN (obstructive sle ep apnea) (ICD-10 - G47.33) PLAN OF TREATMENT Pending Test Test Name Order Date H-CBC 04/04/2024 H-Lipid Panel 04/04/2024 H-CMP 04/04/2024 H-Glycohemoglobin A1C 04/04/2024 H-PSA 04/04/2024 H-Testosterone, total 04/04/2024 Insurance Providers Payer Name Payer Address Payer Phone Subscriber Number Group Number Insured Name Patient Relationship to Insured Coverage Start Date Coverage End Date [employer] [address] [place] [address] [id number] SAMM MEDELLIN Self - patient is the insured MEDICATIONS ADMINISTERED Medication Instructions Date of Administration Dosage Notes Dexamethasone 10/07/2005 1 cm3 Dexamethasone 07/27/2019 1 mL MEDICAL (GENERAL) HISTORY Medical History History ICD Code as child had some kind of kidney disease Hypertension allergic rhinitis low back pain Testosterone deficiency hemorrhoids Depression Abnormal Stress Test 2013 GERD Congestive Heart Failure JHOAN Surgical History Surgery Date(Month/Year) hemorrhoidectomy Colonoscopy Hernia Repair 03/16/2022 Knee Surgery Left Meniscus 12/01/22 Hospitalization History Reason Date(Month/Year)
[2024-04-09 09:20] LABS: Basophils % 0.6 % (0.1-2.0); Eosinophils # 0.2 K/mm3 (0.0-0.4); Eosinophils % 2.9 % (0.1-12.0); Hematocrit 49.4 % (42.0-52.0); Hemoglobin 15.5 g/dL (14.1-18.0); Lymphocytes # 2.5 K/mm3 (0.7-4.5); Lymphocytes % 39.6 % (10-50); Mean Corpuscular HGB Conc 31.5 g/dL (31.8-35.4); Mean Corpuscular Hemoglobin 28.3 pg (27.0-31.2); Mean Corpuscular Volume 89.8 fl (80-94); Mean Platelet Volume 8.3 fl (7.4-10.4); Monocytes # 0.5 K/mm3 (0.1-1.0); Neutrophils # 3.2 K/mm3 (1.8-7.8); Platelet Count 231 K/mm3 (142-424); Red Cell Distribution Width 14.4 % (11.5-17.5); White Blood Count 6.4 K/mm3 (4.8-10.8)
[2024-04-09 09:59] LABS: Alanine Aminotransferase 25 U/L (12-78); Albumin/Globulin Ratio 1.5 (1.1-1.8); Alkaline Phosphatase 67 U/L (38-126); Anion Gap 9.3 mEq/L (5-15); Aspartate Amino Transferase 22 U/L (17-59); Bilirubin,Total 0.6 mg/dl (0.2-1.3); Blood Urea Nitrogen 17 mg/dl (9-20); Calcium 9.2 mg/dl (8.4-10.2); Carbon Dioxide 27 mmol/L (22.0-30.0); Chloride 107 mmol/L (98-107); Chol/HDL Ratio 3.4 (1-3.5); Cholesterol 150 mg/dl (140-200); Estimated Glomerular Filt Rate 98 ml/min (>60); GFR (African American) 119 ML/MIN (>60); Globulin 2.6 g/dL (1.3-3.2); Glucose 113 mg/dl (74-100); HDL Cholesterol 44 mg/dl (40-60); Potassium 4.3 mmoL/L (3.5-5.1); Sodium 139 mmol/L (136-145); Total Protein,Serum 6.6 g/dl (6.3-8.2); Triglycerides 114 mg/dl (30-150); VLDL Cholesterol 23 mg/dL (0-40)
[2024-04-09 10:11] LABS: Direct LDL Cholesterol 82.31 mg/dL (100-129)
[2024-04-09 10:31] LABS: Prostate Specific Ag Screen 0.8 ng/ml (0.0-4.0)
[2024-04-09 11:11] LABS: Hemoglobin A1C 6.3 % (4.0-6.0)
[2024-04-10 12:15] LABS: Testosterone,Total 411 ng/dL (264-916)
== END 2024-04-09 23:59 | disposition home or self-care (01) ==
LOC: LAB 08:47
PROVIDERS: PCP Family Medicine; Visit Provider Family Medicine
DX: I10 Essential (primary) hypertension (principal); E78.5 Hyperlipidemia, unspecified; E29.1 Testicular hypofunction; R73.9 Hyperglycemia, unspecified; Z12.5 Encounter for screening for malignant neoplasm of prostate
CPT/HCPCS: 36415; 80053; 80061; 83036; 84403; 85025; G0103

== ENCOUNTER 2024-08-13 11:21 | Emergency (ER) | payer BC, SELFPAY ==
[2024-08-13 12:50] VITALS: BP 149/86; PULSE 74; RESP 18; TEMP 36.8; O2SAT 96; BMI 35.9
--- NOTE | 2024-08-13 12:57 | EXP.UTC ---
Discharge Plan Disposition Patient Disposition: Home, Self-Care Condition: Good Prescriptions Prescriptions: New methylprednisolone 4 mg Tablets,Dose Pack 4 mg PO DIRECTED 6 Days Qty: 21 0RF Rx Instructions: Take 1 pack as directed for 6 days benzonatate 100 mg capsule 100 mg PO TIDP PRN (Reason: Cough) Qty: 30 0RF amoxicillin-pot clavulanate 875-125 mg Tablet 1 tab PO Q12H Qty: 20 0RF No Action melatonin 10 mg capsule 20 mg PO HS clonazepam 1 mg tablet 1 mg PO HS Patient Comments: TAKE 1 TABLET BY MOUTH AT BEDTIME testosterone cypionate [Depo-Testosterone] 200 mg/mL oil 100 mg IM WEEKLY 90 Days Qty: 10 0RF tamsulosin [Flomax] 0.4 mg capsule 0.4 mg PO DAILY 90 Days Qty: 90 1RF bumetanide 2 mg tablet See Rx Instructions .ROUTE .COMPLEX Qty: 90 3RF Dose Instruction: Take 1 tablet by mouth once daily Rx Instructions: Take 1 tablet by mouth once daily fluoxetine 40 mg capsule 40 mg PO DAILY Patient Comments: TAKE 1 CAPSULE BY MOUTH ONCE DAILY nabumetone 750 mg tablet 750 mg PO DAILY Patient Comments: TAKE 2 TABLETS BY MOUTH ONCE DAILY omeprazole 40 mg capsule,delayed release(DR/EC) 40 mg PO DAILY Patient Comments: TAKE 1 CAPSULE BY MOUTH ONCE DAILY montelukast 10 mg tablet 10 mg PO DAILY valsartan 160 mg tablet 160 mg PO DAILY Patient Comments: TAKE 1 TABLET BY MOUTH ONCE DAILY rosuvastatin 10 mg tablet 10 mg PO DAILY Patient Comments: TAKE 1 TABLET BY MOUTH ONCE DAILY doxycycline hyclate 100 mg capsule 100 mg PO BID Qty: 20 0RF benzonatate 100 mg capsule 100 mg PO TID PRN (Reason: cough) Qty: 30 0RF buspirone 10 mg tablet 10 mg PO BID Referrals Follow up/Referrals: Colin Caldera MD [Primary Care Provider] - See instructions Activity Restrictions/Add. Instructions Additional Instructions/Restrictions: Drink plenty of fluids. Take tylenol or ibuprofen for pain or fever. Take the medications as directed. Follow up with your regular doctor. GO TO THE ER FOR ANY WORSENING SYMPTOMS Clinical Impressions Clinical Impression: Sinusitis Instructions Patient Instructions: Sinusitis, DI for Sinusitis Print Language Print Language: Comoran Discharge ED Provider: Luther [facility] HPI General Stated complaint: cough ear pain chest congestion ba Mode of Arrival: Ambulatory Source of Information: Patient Time Seen by Provider: 08/13/24 12:57 Description of Symptoms (Recalled from Triage Doc. by RN): DRAINAGE, COUGH, SORE THROAT, HEENT Symptoms (Recalled from RN notes): Yes Resp Symptoms (Recalled from RN notes): Yes Skin Symptoms (Recalled from RN notes): No MS Symptoms (Recalled from RN notes): No Functional Status (Recalled from RN notes): WNL Related Data Home Medications ?Medication ?Instructions ?Recorded ?Confirmed fluoxetine 40 mg capsule 40 mg PO DAILY 11/26/23 08/14/24 montelukast 10 mg tablet 10 mg PO DAILY 11/26/23 08/14/24 nabumetone 750 mg tablet 750 mg PO DAILY 11/26/23 08/14/24 omeprazole 40 mg capsule,delayed 40 mg PO DAILY 11/26/23 08/14/24 release rosuvastatin 10 mg tablet 10 mg PO DAILY 11/26/23 08/14/24 valsartan 160 mg tablet 160 mg PO DAILY 11/26/23 08/14/24 melatonin 10 mg capsule 20 mg PO HS 12/29/23 08/14/24 buspirone 10 mg tablet 10 mg PO BID 06/28/24 08/14/24 clonazepam 1 mg tablet 1 mg PO HS 06/28/24 08/14/24 Previous Rx's ?Medication ?Instructions ?Recorded benzonatate 100 mg capsule 100 mg PO TID PRN cough #30 caps 11/26/23 doxycycline hyclate 100 mg capsule 100 mg PO BID #20 caps 11/26/23 bumetanide 2 mg tablet See Rx Instructions .Route 03/07/24 .COMPLEX #90 tabs amoxicillin 875 mg-potassium 1 tab PO Q12H #20 tabs 08/13/24 clavulanate 125 mg tablet benzonatate 100 mg capsule 100 mg PO TIDP PRN Cough #30 caps 08/13/24 methylprednisolone 4 mg tablets in 4 mg PO DIRECTED 6 days #21 tabs 08/13/24 a dose pack tamsulosin 0.4 mg capsule (Flomax) 0.4 mg PO DAILY 90 days #90 caps 08/14/24 testosterone cypionate 200 mg/mL 100 mg (0.5 mL) IM WEEKLY 90 days 08/14/24 intramuscular oil #10 mL (Depo-Testosterone) Allergies Allergy/AdvReac Type Severity Reaction Status Date / Time No Known Allergies Allergy Verified 08/14/24 13:58 Worker's Comp Is this a Worker's Comp case?: No [facility] Disclaimer: The information contained in this section may have been updated after the patient was seen, as this information can be updated by other users. Medical History JHOAN (obstructive sleep apnea) Severe JHOAN with hypoxemia, difficulty tolerating CPAP and currently on Auto-BiPAP with symptomatic improvement but needs additional pressure support. 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 current occupational exposures/hazards: Yes caffeine: Yes ROS Obtained: Yes All systems reviewed & no additional complaints except as documented Constitutional Constitutional: Reports poor appetite Eyes Eyes: Reports system reviewed and no additional complaints, except as documented ENT Ears, Nose, Mouth, and Throat: Reports as per HPI Cardiovascular Cardiovascular: Reports system reviewed and no additional complaints, except as documented and Denies chest pain Respiratory Respiratory: Denies shortness of breath, Denies chest congestion, Reports cough, Denies stridor and Denies wheezing Gastrointestinal Gastrointestingal: Reports system reviewed and no additional complaints, except as documented; Denies abdominal pain, diarrhea or vomiting Musculoskeletal Musculoskeletal: Reports system reviewed and no additional complaints, except as documented and Denies arthralgias Integumentary/Breasts Skin/Breast: Reports system reviewed and no additional complaints, except as documented and Denies rash Neurologic Neurologic: Denies paresthesias Allergic/Immunologic Allergic/Immunologic: Denies wheezing Physical Exam General General appearance: alert and in no apparent distress Eye Eye exam: Present normal appearance, PERRL and EOMI ENT ENT exam: Present mucous membranes moist and normal external ear exam Expanded ENT Exam External ear exam: Present normal external inspection TM/Canal exam: Bilateral TM: erythema and bulging Nose exam: Absent sinus tenderness Nasal speculum exam: Bilateral: normal Mouth exam: Present normal external inspection; Absent drooling Teeth exam: Present normal inspection Throat exam: Present tonsillar erythema and tonsillomegaly Neck Neck exam: Present normal inspection, full ROM and trachea midline; Absent tenderness, lymphadenopathy or thyromegaly Chest Chest inspection: Present normal inspection and symmetric chest wall rise; Absent tenderness or rash Respiratory Respiratory exam: Present normal lung sounds bilaterally; Absent respiratory distress, wheezes, stridor or accessory muscle use Cardiovascular Cardiovascular exam: Present regular rate, normal rhythm and normal heart sounds Abdominal Exam Abdominal exam: Present soft; Absent distention, tenderness, guarding, rebound or rigidity Extremities Exam Extremities exam: Present normal inspection, full ROM and normal capillary refill; Absent tenderness or calf tenderness Back Exam Back exam: Present normal inspection and full ROM; Absent tenderness Neurological Exam Neurological exam: Present alert and oriented X3 Psychiatric Psychiatric exam: Present normal affect and normal mood Skin Skin exam: Present warm, dry, intact and normal color Lymphatic Lymphatic Findings: no adenopathy Medical Decision Making Medical Records Medical records reviewed: No I reviewed the patient's medical records. Screening: Per USPSTF and CDC recommendations, given the prevalence of disease in our region, it is our hospital?s policy to screen for HIV and viral Hepatitis for all patients aged 18 and over and those with ongoing risk factors. Obi Inquiry Pt receiving controlled substance: No Vital Signs: 08/13/24 12:50 Temperature 98.3 F Temperature Source Oral Pulse Rate [Left Radial] 74 Respiratory Rate 18 Blood Pressure [Left Arm] 149/86 H Blood Pressure Mean [Left Arm] 107 02 Sat by Pulse Oximetry 96
[2024-08-13 12:59] LABS: UTC Strep Screen (Rapid) Negative (Negative)
[2024-08-13 13:29] VITALS: BP 149/86; PULSE 74; RESP 18; TEMP 36.8
== END 2024-08-13 13:36 | disposition home or self-care (01) ==
PROVIDERS: Emergency Provider Nurse Practitioner Family; PCP Family Medicine
DX: J32.9 Chronic sinusitis, unspecified (principal); R05.9 Cough, unspecified; H92.03 Otalgia, bilateral; R09.89 Other specified symptoms and signs involving the circulatory and respiratory systems; M54.9 Dorsalgia, unspecified; J02.9 Acute pharyngitis, unspecified; R63.8 Other symptoms and signs concerning food and fluid intake
CPT/HCPCS: 87880; 99212; G0381

== ENCOUNTER 2024-09-25 16:40 | Outpatient (CLI) | payer BC, SELFPAY ==
[2024-09-25 17:22] LABS: Basophils % 0.2 % (0.1-2.0); Eosinophils # 0.1 K/mm3 (0.0-0.4); Eosinophils % 1.4 % (0.1-12.0); Hematocrit 47.7 % (42.0-52.0); Hemoglobin 15.3 g/dL (14.1-18.0); Lymphocytes % 35.1 % (10-50); Mean Corpuscular HGB Conc 32.1 g/dL (31.8-35.4); Mean Corpuscular Hemoglobin 27.7 pg (27.0-31.2); Mean Corpuscular Volume 86.4 fl (80-94); Mean Platelet Volume 10.7 fl (7.4-10.4); Monocytes # 0.8 K/mm3 (0.1-1.0); Monocytes % 9.7 % (1.7-9.3); Neutrophils # 4.5 K/mm3 (1.8-7.8); Neutrophils % 53.5 % (37.0-80.0); Platelet Count 280 K/mm3 (142-424); Red Blood Count 5.52 M/mm3 (4.60-6.20); Red Cell Distribution Width 14.2 % (11.5-17.5); White Blood Count 8.5 K/mm3 (4.8-10.8)
[2024-09-26 08:12] LABS: PSA, Free 0.26 ng/mL; Testosterone,Total 733 ng/dL (264-916)
[2024-09-26 10:10] LABS: Sex Hormone Binding Globulin 20.5 nmol/L (19.3-76.4)
== END 2024-09-25 23:59 | disposition home or self-care (01) ==
LOC: LAB 16:41
PROVIDERS: PCP Family Medicine; Visit Provider Urology
DX: N40.0 Benign prostatic hyperplasia without lower urinary tract symptoms (principal); E29.1 Testicular hypofunction
CPT/HCPCS: 36415; 84153; 84154; 84270; 84403; 85025

== ENCOUNTER 2024-10-29 09:04 | Outpatient (CLI) | payer BC, SELFPAY ==
[2024-10-29 09:33] LABS: Albumin Level 4.1 g/dl (3.5-5.0); Chloride 105 mmol/L (98-107); Potassium 4.1 mmoL/L (3.5-5.1); Sodium 139 mmol/L (136-145)
[2024-10-29 09:35] LABS: Alanine Aminotransferase 24 U/L (12-78); Anion Gap 10.1 mEq/L (5-15); Aspartate Amino Transferase 22 U/L (17-59); Blood Urea Nitrogen 15 mg/dl (9-20); Carbon Dioxide 28 mmol/L (22.0-30.0); Estimated Glomerular Filt Rate 86 ml/min (>60); GFR (African American) 103 ML/MIN (>60)
[2024-10-29 09:36] LABS: Albumin/Globulin Ratio 1.8 (1.1-1.8); Alkaline Phosphatase 65 U/L (38-126); Bilirubin,Total 0.4 mg/dl (0.2-1.3); Calcium 8.8 mg/dl (8.4-10.2); Chol/HDL Ratio 3.5 (1-3.5); Cholesterol 130 mg/dl (140-200); Globulin 2.3 g/dL (1.3-3.2); Glucose 117 mg/dl (74-100); HDL Cholesterol 37 mg/dl (40-60); Total Protein,Serum 6.4 g/dl (6.3-8.2); Triglycerides 139 mg/dl (30-150); VLDL Cholesterol 28 mg/dL (0-40)
[2024-10-29 09:47] LABS: Direct LDL Cholesterol 63.11 mg/dL (100-129)
== END 2024-10-29 23:59 | disposition home or self-care (01) ==
LOC: LAB 09:06
PROVIDERS: PCP Family Medicine; Visit Provider Family Medicine
DX: R73.9 Hyperglycemia, unspecified (principal); I10 Essential (primary) hypertension; E78.5 Hyperlipidemia, unspecified
CPT/HCPCS: 36415; 80053; 80061; 83036

== ENCOUNTER 2025-01-29 14:18 | Outpatient (CLI) | payer BC, SELFPAY ==
--- OUTSIDE RECORDS SUMMARY | 2025-01-29 14:22 | XMS_ITS | Data Portability ---
Author Organization [facility] [place] [facility] CLOSED Address [address] [place] [address] Care Team Providers Care Spinner Cap Frame Name Role Phone YANETHGRICEL HANCOCK Primary Care Provider [phone] Assessment No assessment recorded. Plan of Treatment Reminders Order Date Submit Date Provider Last Modified By Organization Details Last Modified Time Details Appointments None recorded. Lab urinalysis panel, auto [address] [facility], [address], [address], [place], [address], 3 16:04:35 PSA, total, serum or plasma [address] [facility], [address] [place] [address], [address], 3 16:04:35 testosteron e, total, serum [address] [facility], [address] [place] [address], [address], 3 16:04:35 testosteron e, free, serum [address] [facility], [address] [place] [address], [address], 3 16:04:35 urinalysis panel, auto [address] [facility], [address], [address], [place], [address], 2 21:15:41 urinalysis panel, auto [id number] [facility], [address], [address], [place], [address], 2 16:48:38 urinalysis panel, auto 2020 021 [facility], [address], [address], [place], [address], 1 23:32:27 PSA, serum or plasma [address] [facility], [address], [address], [place], [address], 1 23:32:27 testosteron e, free + total, serum 2020 021 [email or web address] [facility], [address] [place] [address], [address], 1 23:32:27 CBC w/ auto diff 2020 021 [email or web address] [facility], [address] [place] [address], [address], 1 17:52:13 Referral None recorded. Procedures None recorded. Surgeries None recorded. Imaging None recorded. Medication Orders tamsulosin 0.4 mg capsule 2022 023 [facility], [address], [place], [address], 3 11:51:41 Depo-Testos terone 200 mg/mL intramuscul ar oil 2022 023 [facility], [address], [place], [address], 3 11:50:36 tamsulosin 0.4 mg capsule 2021 022 [facility], [address], [place], [address], 2 21:15:50 Depo-Testos terone 200 mg/mL intramuscul ar oil 2021 022 [email or web address] Not available 2 16:23:09 tamsulosin 0.4 mg capsule 2021 022 [facility] - [facility], [address], [place], [address], 2 16:48:49 tamsulosin 0.4 mg capsule 2020 021 [facility], [address], [place], [address], 1 07:09:20 testosteron e cypionate 200 mg/mL intramuscul ar oil 2020 021 [facility], [address], [place], [address], 1 07:08:47 Patient TargetsNo targets recorded. Patient Instructions Encounter Date Encounter Id Patient Instructions Last Modified By Organization Details Last Modified Time 09/04/2020 [id number] hypogonadism: care instructions [email or web address] Not available 09/05/2020 20:50:31 08/26/2021 [id number] learning about healthy weight [email or web address] Not available 08/26/2021 16:48:38 Reason for Referral None Reported. Results Created Date Observation Date Name Description Value Unit Range Abnormal Flag Note LastModifiedBy Organization Detail LastModifiedTime 03/25/20 21 03/25/2021 urina lysis panel , auto Unknown Analyte Clean Catch Not Available [facility] [address], [place], [address], 03/25/2021 16:42:42 03/25/20 21 03/25/2021 urina lysis panel , auto Unknown Analyte Yellow Not Available [facility] [address], [place], [address], 03/25/2021 16:42:42 03/25/20 21 03/25/2021 urina lysis panel , auto Unknown Analyte Clear Not Available [facility] [address], [place], [address], 03/25/2021 16:42:42 03/25/2003/25/2021 urina lysis panel , auto Unknown Analyte 1.020 Not Available [facility] [address] [address], [place], [address], 03/25/2021 16:42:42 03/25/2003/25/2021 urina lysis panel , auto Unknown Analyte 1.003- 1.035 Not Available [facility] [address], [place], [address], 03/25/2021 16:42:42 03/25/20 21 03/25/2021 urina lysis panel , auto Unknown Analyte 5.0 Not Available [facility] [address], [place], [address], 03/25/2021 16:42:42 03/25/2003/25/2021 urina lysis panel , auto Unknown Analyte 5.0-8. 0 Not Available [facility] [address], [place], [address], 03/25/2021 16:42:42 03/25/20 21 03/25/2021 urina lysis panel , auto Unknown Analyte Negati ve Not Available [facility] [address], [place], [address], 03/25/2021 16:42:42 03/25/2003/25/2021 urina lysis panel , auto Unknown Analyte Negati ve Not Available [facility] [address], [place], [address], 03/25/2021 16:42:42 03/25/2003/25/2021 urina lysis panel , auto Unknown Analyte Negati ve Not Available [facility] [address], [place], [address], 03/25/2021 16:42:42 03/25/2003/25/2021 urina lysis panel , auto Unknown Analyte Negati ve Not Available [facility] [address], [place], [address], 03/25/2021 16:42:42 03/25/20 21 03/25/2021 urina lysis panel , auto Unknown Analyte Negati ve Not Available [facility] [address], [place], [address], 03/25/2021 16:42:42 03/25/20 21 03/25/2021 urina lysis panel , auto Unknown Analyte Negati ve Not Available [facility] [address], [place], [address], 03/25/2021 16:42:42 03/25/2003/25/2021 urina lysis panel , auto Unknown Analyte Normal Not Available [facility] [address], [place], [address], 03/25/2021 16:42:42 03/25/20 21 03/25/2021 urina lysis panel , auto Unknown Analyte Normal Not Available [facility] [address], [place], [address], 03/25/2021 16:42:42 03/25/2003/25/2021 urina lysis panel , auto Unknown Analyte 15 mg/dl (Sm) Not Available [facility] [address], [place], [address], 03/25/2021 16:42:42 03/25/2003/25/2021 urina lysis panel , auto Unknown Analyte Negati ve Not Available [facility] [place] [address], [place], [address], 03/25/2021 16:42:42 03/25/20 21 03/25/2021 urina lysis panel , auto Unknown Analyte Normal Not Available [facility] [address], [place], [address], 03/25/2021 16:42:42 03/25/20 21 03/25/2021 urina lysis panel , auto Unknown Analyte Normal 1 mg/dl Not Available [facility] [address], [place], [address], 03/25/2021 16:42:42 03/25/20 21 03/25/2021 urina lysis panel , auto Unknown Analyte Negati ve Not Available [facility] [address], [place], [address], 03/25/2021 16:42:42 03/25/20 21 03/25/2021 urina lysis panel , auto Unknown Analyte Negati ve Not Available [facility] [address], [place], [address], 03/25/2021 16:42:42 03/25/2003/25/2021 urina lysis panel , auto Unknown Analyte Negati ve Not Available [facility] [address], [place], [address], 03/25/2021 16:42:42 03/25/2003/25/2021 urina lysis panel , auto Unknown Analyte Negati ve Not Available [facility] [address] [place] [address] [address], [place], [address], 03/25/2021 16:42:42 03/25/20 21 03/25/2021 TESTO STERO NE,TO NORIS/F REE testosterone , total 726 NG/dL 193-74 0 normal Refer ence range is for age 50 years and over. Not Available [facility] [address] [place], [address], 03/28/2021 10:56:26 03/25/20 21 03/28/2021 TESTO STERO NE,TO NORIS/F REE testosterone , free 202.9 pg/mL 46.0-2 24.0 normal This test was devel oped and its nimisha tical perfo rmanc e pineda cteri stics have been deter mined by [facility]. It has not been clear ed or appro clifford by the FDA. This assay has been valid ated pursu ant to the CLIA regul ation s and is used for clini nestor purpo ses. TEST PERFO RMED AT: [facility] [address] [place] [address] Julian HEBERT Not Available [facility] [address] [place] [address], [address], 03/28/2021 10:56:26 03/25/20 21 03/25/2021 PSA, serum or plasm a PSA 0.77 NG/mL 0.0 - 4.0 Not Available [facility] [address], [place], [address], 03/25/2021 17:03:08 08/26/19 22 08/26/2021 urina lysis panel , auto Unknown Analyte Clean Catch Not Available [facility] [address], [place], [address], 08/26/2021 16:45:20 08/26/19 22 08/26/2021 urina lysis panel , auto Unknown Analyte Yellow Not Available [facility] [address], [place], [address], 08/26/2021 16:45:20 08/26/19 22 08/26/2021 urina lysis panel , auto Unknown Analyte Clear Not Available [facility] [address], [place], [address], 08/26/2021 16:45:20 08/26/19 22 08/26/2021 urina lysis panel , auto Unknown Analyte 1.020 Not Available [facility] [address], [place], [address], 08/26/2021 16:45:20 08/26/19 22 08/26/2021 urina lysis panel , auto Unknown Analyte 5.0 Not Available [facility] [address], [place], [address], 08/26/2021 16:45:20 08/26/19 22 08/26/2021 urina lysis panel , auto Unknown Analyte Negati ve Not Available [facility] [address], [place], [address], 08/26/2021 16:45:20 08/26/19 22 08/26/2021 urina lysis panel , auto Unknown Analyte Negati ve Not Available [facility] [address], [place], [address], 08/26/2021 16:45:20 08/26/19 22 08/26/2021 urina lysis panel , auto Unknown Analyte Negati ve Not Available [facility] [address], [place], [address], 08/26/2021 16:45:20 08/26/19 22 08/26/2021 urina lysis panel , auto Unknown Analyte Normal Not Available [facility] [address], [place], [address], 08/26/2021 16:45:20 08/26/19 22 08/26/2021 urina lysis panel , auto Unknown Analyte Negati ve Not Available [facility] [address], [place], [address], 08/26/2021 16:45:20 08/26/19 22 08/26/2021 urina lysis panel , auto Unknown Analyte Normal Not Available [facility] [address], [place], [address], 08/26/2021 16:45:20 08/26/19 22 08/26/2021 urina lysis panel , auto Unknown Analyte Negati ve Not Available [facility] [address], [place], [address], 08/26/2021 16:45:20 08/26/19 22 08/26/2021 urina lysis panel , auto Unknown Analyte Negati ve Not Available [facility] [address], [place], [address], 08/26/2021 16:45:20 09/23/19 22 09/23/2021 urina lysis panel , auto Unknown Analyte Clean Catch Not Available [facility] [address], [place], [address], 09/23/2021 16:24:26 09/23/19 22 09/23/2021 urina lysis panel , auto Unknown Analyte Yellow Not Available [facility] [address], [place], [address], 09/23/2021 16:24:26 09/23/19 22 09/23/2021 urina lysis panel , auto Unknown Analyte Clear Not Available [facility] [address], [place], [address], 09/23/2021 16:24:26 09/23/19 22 09/23/2021 urina lysis panel , auto Unknown Analyte 1.015 Not Available [facility] [address], [place], [address], 09/23/2021 16:24:26 09/23/19 22 09/23/2021 urina lysis panel , auto Unknown Analyte 5.0 Not Available [facility] [address], [place], [address], 09/23/2021 16:24:26 09/23/19 22 09/23/2021 urina lysis panel , auto Unknown Analyte Negati ve Not Available [facility] [address], [place], [address], 09/23/2021 16:24:26 09/23/19 22 09/23/2021 urina lysis panel , auto Unknown Analyte Negati ve Not Available [facility] [address], [place], [address], 09/23/2021 16:24:26 09/23/19 22 09/23/2021 urina lysis panel , auto Unknown Analyte Negati ve Not Available [facility] [address], [place], [address], 09/23/2021 16:24:26 09/23/19 22 09/23/2021 urina lysis panel , auto Unknown Analyte Normal Not Available [facility] [address], [place], [address], 09/23/2021 16:24:26 09/23/19 22 09/23/2021 urina lysis panel , auto Unknown Analyte Negati ve Not Available [facility] [address], [place], [address], 09/23/2021 16:24:26 09/23/19 22 09/23/2021 urina lysis panel , auto Unknown Analyte Normal Not Available [facility] [address], [place], [address], 09/23/2021 16:24:26 09/23/19 22 09/23/2021 urina lysis panel , auto Unknown Analyte Negati ve Not Available [facility] [address], [place], [address], 09/23/2021 16:24:26 09/23/19 22 09/23/2021 urina lysis panel , auto Unknown Analyte Negati ve Not Available [facility] [address], [place], [address], 09/23/2021 16:24:26 03/09/20 23 03/09/2023 PROST ATE SPECI FIC AG prostate specific Ag 1.050 NG/mL 0.000- 4.100 normal Test metho d is based on WHO-s tanda rdize d calib ratio n using the Akbar Kaveh E801 nimisha zer. PSA resul ts by diffe rent test proce dures canno t be direc tly matias red with one anoth er. . Not Available [facility] [address] [place], [address], 03/09/2023 19:20:23 03/09/20 23 03/09/2023 TESTO STERO NE, TOTAL testosterone , total 587 NG/dL 193-74 0 normal Refer ence range is for age 50 years and over. Not Available [facility] [address] [place], [address], 03/09/2023 19:20:25 03/09/20 23 03/13/2023 TESTO STERO NE, FREE testosterone , free 129.5 pg/mL 46.0-2 24.0 normal (Note ) The celina ntrat ion of free testo stero ne is deriv ed from a angela gaffney al model using total testo stero ne by LCMSM S, sex hormo ne alexandro ng globu tayler and album in. This test was devel oped and its nimisha tical perfo rmanc e pineda cteri stics have been deter mined by [facility]. It has not been clear ed or appro clifford by the FDA. This assay has been valid ated pursu ant to the CLIA regul ation s and is used for clini nestor purpo ses. [facility] med fusio n [address] [facility] [address] [facility] [address] [phone] Demetrio oliveira MD Not Available [facility] [address] [place], [address], 03/13/2023 02:45:20 03/09/20 23 03/09/2023 urina lysis panel , auto Unknown Analyte Clean Catch Not Available [facility] [address] [facility] [address], [place], [address], 03/09/2023 16:54:11 03/09/20 23 03/09/2023 urina lysis panel , auto Unknown Analyte Yellow Not Available [facility] [address], [place], [address], 03/09/2023 16:54:11 03/09/20 23 03/09/2023 urina lysis panel , auto Unknown Analyte Slight ly Hazy Not Available [facility] [address], [place], [address], 03/09/2023 16:54:11 03/09/20 23 03/09/2023 urina lysis panel , auto Unknown Analyte 1.025 Not Available [facility] [address], [place], [address], 03/09/2023 16:54:11 03/09/20 23 03/09/2023 urina lysis panel , auto Unknown Analyte 1.003- 1.035 Not Available [facility] [address], [place], [address], 03/09/2023 16:54:11 03/09/20 23 03/09/2023 urina lysis panel , auto Unknown Analyte 5.0 Not Available [facility] [address], [place], [address], 03/09/2023 16:54:11 03/09/20 23 03/09/2023 urina lysis panel , auto Unknown Analyte 5.0-8. 0 Not Available [facility] [address], [place], [address], 03/09/2023 16:54:11 03/09/20 23 03/09/2023 urina lysis panel , auto Unknown Analyte Negati ve Not Available [facility] [address], [place], [address], 03/09/2023 16:54:11 03/09/20 23 03/09/2023 urina lysis panel , auto Unknown Analyte Negati ve Not Available [facility] [address], [place], [address], 03/09/2023 16:54:11 03/09/20 23 03/09/2023 urina lysis panel , auto Unknown Analyte Negati ve Not Available [facility] [address], [place], [address], 03/09/2023 16:54:11 03/09/20 23 03/09/2023 urina lysis panel , auto Unknown Analyte Negati ve Not Available [facility] [address], [place], [address], 03/09/2023 16:54:11 03/09/20 23 03/09/2023 urina lysis panel , auto Unknown Analyte Trace Not Available [facility] [address], [place], [address], 03/09/2023 16:54:11 03/09/20 23 03/09/2023 urina lysis panel , auto Unknown Analyte Negati ve Not Available [facility] [address], [place], [address], 03/09/2023 16:54:11 03/09/20 23 03/09/2023 urina lysis panel , auto Unknown Analyte 100 mg/dl Not Available [facility] [address], [place], [address], 03/09/2023 16:54:11 03/09/20 23 03/09/2023 urina lysis panel , auto Unknown Analyte Normal Not Available [facility] [address], [place], [address], 03/09/2023 16:54:11 03/09/20 23 03/09/2023 urina lysis panel , auto Unknown Analyte 15 mg/dl (Sm) Not Available [facility] [address], [place], [address], 03/09/2023 16:54:11 03/09/20 23 03/09/2023 urina lysis panel , auto Unknown Analyte Negati ve Not Available [facility] [address], [place], [address], 03/09/2023 16:54:11 03/09/20 23 03/09/2023 urina lysis panel , auto Unknown Analyte Normal Not Available [facility] [address], [place], [address], 03/09/2023 16:54:11 03/09/20 23 03/09/2023 urina lysis panel , auto Unknown Analyte Normal 1 mg/dl Not Available [facility] [address], [place], [address], 03/09/2023 16:54:11 03/09/20 23 03/09/2023 urina lysis panel , auto Unknown Analyte Negati ve Not Available [facility] [address], [place], [address], 03/09/2023 16:54:11 03/09/20 23 03/09/2023 urina lysis panel , auto Unknown Analyte Negati ve Not Available [facility] [address], [place], [address], 03/09/2023 16:54:11 03/09/20 23 03/09/2023 urina lysis panel , auto Unknown Analyte Trace Not Available [facility] [address], [place], [address], 03/09/2023 16:54:11 03/09/20 23 03/09/2023 urina lysis panel , auto Unknown Analyte Negati ve Not Available [facility] With [address] [place] [address], [place], [address], 03/09/2023 16:54:11 Result Notes None recorded. Problems No Known Problems Medical Equipment None Reported. Allergies No known drug allergies Medications Name Sig Start Date Stop Date Status Note LastModified by Organization Details LastModified Time Compound Testosterone Cypionate (200 mg/mL injection in sesame oil #2.5 mL) active Not Available Not Available Not Available Prescription - Prior Authorizatio n Request active Not Available Not Available No t Available syringe with needle 3 mL 22 x 1 1/2 USE DIRECTED active Not Available Not Available No t Available Depo-Testost erone 200 mg/mL intramuscula r oil Inject 0.5 mL every week by intramuscul ar injection 2023 active Not Available Not Available Not Avai lable tamsulosin 0.4 mg capsule Take 1 capsule by mouth twice daily 2023 active Not Available Not Available Not Avai lable benzonatate 100 mg capsule Take 1 capsule 3 times a day by oral route. active Not Available Not Available No t Available BD Regular Bevel Savanna 22 gauge x 1 1/2 USE DIRECTED TO INJECT MEDICATION 2021 active Not Available Not Available Not Avai lable BD Luer-Rolanda Syringe 3 mL 18 x 1 1/2 USE DIRECTED active Not Available Not Available No t Available BD Integra Syringe 3 mL 22 gauge x 1 1/2 active Not Available Not Available Not Available garlic active Not Available Not Availa ble Not Available ferrous sulfate active Not Available Not Available Not Available hydrochlorot hiazide active Not Available Not Available Not Available losartan active Not Available Not Avai lable Not Available bisoprolol fumarate active Not Available Not Available Not Available BD Regular Bevel Savanna 18 gauge x 1 1/2 USE DIRECTED active Not Available Not Available No t Available cholecalcife rol (vit D3)(bulk) active Not Available Not Available No t Available Vitals Date Recorded Body height Body mass index (BMI) Body weight Provider Name and Address Organization Details Last Updated DateTime 08/26/2021 177.8 cm 36.2 kg/m2 744974.28 g [facility] 08/26/2021 16:45:02 Date Recorded Body height Body mass index (BMI) Body weight Provider Name and Address Organization Details Last Updated DateTime 09/04/2020 177.8 cm 37.6 kg/m2 216294.2 g [facility] 09/04/2020 13:06:59 Date Recorded Body height Body mass index (BMI) Body weight Provider Name and Address Organization Details Last Updated DateTime 09/23/2021 177.8 cm 36.2 kg/m2 869711.28 g [facility] 09/23/2021 16:24:00 Date Recorded Body height Body mass index (BMI) Body weight Provider Name and Address Organization Details Last Updated DateTime 03/09/2023 177.8 cm 38.2 kg/m2 037121.57 g Andres Murphy [facility] 03/09/2023 16:53:40 Date Recorded Body height Body mass index (BMI) Body weight Provider Name and Address Organization Details Last Updated DateTime 03/25/2021 177.8 cm 37.6 kg/m2 461490.2 g Doretha Louis [facility] 03/25/2021 16:42:14 Social History Question Answer Notes LastModified by Organizat ion Details LastModified Time Tobacco Smoking Status Never Smoker Venecia Co[facility] 10/18/2019 15:07:12 How Much Tobacco Do You Chew? None [email or web address] Information not available 10/18/2019 Marital Status [email or web address] Informatio n not available 10/18/2019 What Is Your Relationship Status? [email or web address] Information not available 09/23/2021 How Much Tobacco Do You Smoke? No [email or web address] Information not available 10/18/2019 Has Tobacco Cessation Counseling Been Provided? No Information not available 09/23/2021 Have You Recently Traveled Abroad? No [email or web address] Information not available 09/23/2021 Sex: Unknown Functional Status Question Answer Note LastModified by Organizat ion Details LastModified Time Do you use any illicit or recreational drugs? No [email or web address] Information not available 09/23/2021 Do you or have you ever used any other forms of tobacco or nicotine? No [email or web address] Information not available 09/23/2021 What is your level of alcohol consumption? None [email or web address] Information not available 10/18/2019 Mental Status None recorded. Family History Nothing Reported. Medical History Condition Response Hypertension Y Past Encounters Encounter ID Performer Location Encounter Start Date Encounter Closed Date Diagnosis/Indication Diagnosis SNOMED-CT Code Diagnosis ICD10 Code Diagnosis Note [id number] MD [facility] [address] [place] [id number] 10/18/2019 14:49:45 10/18/2019 15:27:16 Male hypogonadism 14078373 E29.1 follow up 6 monthsplan as above Benign pro static hyperplasia 291130645 N40.0 observe [id number] MD [facility] [address] [facility] [place] [id number] 06/17/2020 15:25:01 06/17/2020 16:52:16 Benign prostatic hyperplasia with outflow obstruction 239613402 N40.1 this PSA today was 0.97. He will follow-up in 6 weeks regarding his obstructiv e urinary symptoms. Male hypogonadism 522608 06 E29.1 as above [id number] LETY GARCIA MD [facility] [address] [place] [id number] 09/04/2020 12:55:27 09/04/2020 13:41:47 Benign prostatic hyperplasia with outflow obstruction 771400859 N40.1 Continue tamsulosin as above Male hypogonadism 300525 06 E29.1 as above [id number] LETY GARCIA MD [facility] [address] [id number] 03/25/2021 16:26:12 03/26/2021 12:20:40 Benign prostatic hyperplasia with outflow obstruction 729752111 N40.1 Continue tamsulosin Testicular hypofunction 659125808 E29.1 Follow-up 6 months. We will contact him if his levels are unacceptab le. Male hypogonadism 855713 06 E29.1 as above [id number] LETY GARCIA MD [facility] [address] [id number] 08/26/2021 16:04:58 08/26/2021 16:48:51 Benign prostatic hyperplasia with outflow obstruction 698968860 N40.1 Continue tamsulosin and increase to twice a day, he will follow up in 1 month Male hypogonadism 477190 06 E29.1 as above [id number] LETY GARCIA MD [facility] [address] [id number] 09/23/2021 16:01:04 09/23/2021 16:41:38 Benign prostatic hyperplasia with outflow obstruction 031708759 N40.1 Continue tamsulosin Twice a day Male hypogonadism 461623 06 E29.1 as above [id number] LETY GARCIA MD [facility] [address] [id number] 03/09/2023 16:41:30 03/29/2023 04:14:00 Testicular hypofunction 232467586 E29.1 Follow-up 6 months. We will contact him if his levels are unacceptab le. Benign pro static hyperplasia with outflow obstruction 838183213 N40.1 Health Concerns Section Related Observation LastModified by Organization Detai ls LastModified Time None Recorded Concern Status LastModified by Organization Details LastModified Time None Recorded Advance Directives Directive None Recorded Payers Insurance Date Sequence Insurance Name Policy Number Policy Muniz Covered Member ID Muniz Member ID Guarantor Name 05/02/2024 1 [facility] (O) [id number] A Myles Zuniga [id number] Myles Zuniga Notes Date Note Type Note Provider Name and Address Organization Details Recorded Time 09/04/2020 text/html Patient was last seen him in June. At that time he was treated for prostate hypertrophy with tamsulosin and also Depo testosterone for hypogonadism. His obstructive symptoms resolved with the tamsulosin. He no longer has postvoid dribbling or urgency. He is recently developed some issues with lower extremity edema and has been started on a diuretic. He is are here to discuss whether this could be related to his tamsulosin. He has edema has improved after starting diuretics. He continues to void well although having increased frequency with the diuretics. We discussed that this would be a very unlikely side effect of tamsulosin. He was informed that certainly he could discontinue therapy for a few days and see if that seem to affect his edema. He will continue with Depo testosterone 100 mg each week. LETY GARCIA MD [address] [place] [address], [phone], [facility] 09/05/2020 20:57:15 03/25/2021 text/html Patient is here for scheduled 6 month follow-up regarding hypogonadism. He continues to use Depo-Testosterone 100 mg each week. His last injection was 5 days ago. I suggest we obtain a PSA as well as total and free testosterone today. He also takes tamsulosin once per day. His last visit he was having some issues with peripheral edema. He saw cardiology and they felt that he had some component of congestive heart failure. They recommended weight loss as well as limiting water and salt. His edema has been much better. He is on diuretics as well. LETY GARCIA [facility], [address], [facility] 03/26/2021 07:10:16 08/26/2021 text/html patient is here typically followed for hypogonadism. He also has benign prostatic hypertrophy and is on tamsulosin once per day. He is here today early due to more bothersome obstructive symptoms. For the last 2 or 3 months he's had more noticeable urgency with postvoid dribbling. His urine specimen today is unremarkable. His PSA in March was 0.77. He received 100 mg Depo testosterone weekly self injection. We discussed options with suggest that we increase his tamsulosin to twice a day. If this fails to significantly improve his symptoms we will consider cystoscopy. LETY GARCIA MD [address] [place] [address] [place], [phone] 08/26/2021 16:49:17 09/23/2021 text/html Patient is here for follow-up of hypogonadism. He receives 100 mg Depo-Testosterone weekly. He feels well. He also was seen in August for more bothersome obstructive symptoms. He takes tamsulosin once per day. We increased his tamsulosin to twice per day and states that his symptoms are better. He is unsure of the degree of improvement. We discussed the further evaluation with our cystoscopy he requests refill of his testosterone. LETY GARCIA MD [facility] [place], [address], [facility] 10/05/2021 21:16:25 03/09/2023 text/html Patient is here in follow-up of hypogonadism. He receives 100 mg of Depo testosterone weekly self-administered. He feels well. I also started him on tamsulosin for obstructive symptoms and he has been on it once a day for quite some time but at last visit increase to twice per day. He seems to think that helped minimally. We discussed that if he has not satisfied we will need to consider cystoscopy for further evaluation. LETY GARCIA MD [facility] [place], [address], [facility] 03/28/2023 11:52:12
--- OUTSIDE RECORDS SUMMARY | 2025-01-29 14:22 | XMS_ITS | Clinical Summary ---
Author Organization [facility] Address [address] [place] [phone] Phone [email or web address] Providers Care Sales And Marketing Director Name Role Phone Colin Caldera MD Primary Care Provider Allergies No known active allergies Medications testosterone cypionate (DEPO-TESTOTER ONE) 200 MG/ML injection INJECT 1 2 (ONE HALF) ML (CC) INTRAMUSCULARLY ONCE A WEEK 02/13/20 21 Active tamsulosin (FLOMAX) 0.4 MG 24 hr capsule Take 0.4 mg by mouth 1 (one) time each day. 12/14/19 21 Active spironolactone (ALDACTONE) 25 MG tablet Take 25 mg by mouth 1 (one) time each day. 02/22/20 21 Active omeprazole (PriLOSEC) [address] capsule 01/07/20 21 Active nabumetone (RELAFEN) 750 MG tablet TAKE 2 TABLETS BY MOUTH ONCE DAILY FOR 90 DAYS 01/01/20 21 Active bisoprolol (ZEBETA) 10 MG tablet TAKE 1 TABLET BY MOUTH ONCE DAILY FOR 90 DAYS 12/13/19 21 Active Monroe-3 Fatty Acids (FISH OIL PO) Take by mouth. Activ e valsartan (DIOVAN) 160 MG tablet Take 160 mg by mouth 1 (one) time each day. 03/11/20 22 Active rosuvastatin (CRESTOR) 10 MG tablet Take 10 mg by mouth 1 (one) time each day. 02/11/20 22 Active bumetanide (BUMEX) 2 MG tablet Take 2 mg by mouth 1 (one) time each day. 03/12/20 22 Active Vraylar 1.5 MG capsule 01/07/20 23 Active busPIRone (BUSPAR) 10 MG tablet Take 10 mg by mouth in the morning and 10 mg before bedtime. 04/13/20 Active FLUoxetine (PROzac) 20 MG capsule Take 20 mg by mouth 1 (one) time each day. 03/16/20 Active Active Problems No known active problems Social History Tobacco Use Types Packs/Day Years Used Date Smoking Tobacco: Never Smokeless Tobacco: Never Tobacco Cessation:Counseling Given: Not Answered Intimate Partner Violence Answer Date R ecorded Insults You Not on file 11/27/2020 Threatens You Not on file 11/27/2020 Screams at You Not on file 11/27/2020 Physically Hurt Not on file 11/27/2020 Intimate Partner Violence Score Not on file 11/27/2020 Depression Answer Date Recorded PHQ Total Score 7 04/30/2023 Stress Answer Date Recorded Stress in your Life Not on file 06/18/2024 Dealing with Stress 3 06/18/2024 Sex and Gender Information Value Date Recorded Sex Assigned at Not on file Legal Sex Male 10:17 AM CDT Gender Identity Not on file Sexual Orientation Not on file Last Filed Vital Signs Vital Sign Reading Time Taken Comments Blood Pressure 134/87 04/30/2023 3:45 PM EDT Pulse 96 04/30/2023 3:45 PM EDT Temperature 36.6 C (97.8 F) 04/30/2023 3:45 PM EDT Respiratory Rate 18 04/30/2023 3:45 PM EDT Oxygen Saturation 99% 04/30/2023 3:45 PM EDT Inhaled Oxygen Concentration - - Weight - - Height - - Body Mass Index - - Plan of Treatment Health Maintenance Due Date Last Done Comments Dental Cleaning/Exam 1960 HIV Screening 1960 Hepatitis C Screening 1962 Annual Preventive Exam 1980 Hep B Infection Screening - Triple Screen 1980 Colorectal Cancer Screening 1992 Zoster Immunization (1 of 2) 2012 Covid-19 Immunization (2 - season) 2024 11/22/2020 Influenza Immunization (Season Ended) 2025 05/14/2021, 07/08/2019, 06/19/2018 Tetanus Diphtheria and Pertussis Immunization (2 - Td or Tdap) 03/01/2030 03/01/2020 HIB Immunization Aged Out No longer e ligible based on patient's age to complete this topic HPV Immunization Aged Out No longer e ligible based on patient's age to complete this topic Hepatitis A Immunization Aged Out No longer eligible based on patient's age to complete this topic Hepatitis B Immunization Aged Out No longer eligible based on patient's age to complete this topic Pneumococcal: Ped (0 to 5 Yrs) and At-Risk Member (6 to 64 Yrs) Aged Out No longer eligible b ased on patient's age to complete this topic Polio Immunization Aged Out No longer eligible based on patient's age to complete this topic Insurance OPT OUT NO COPAY NB ANTHEM IN COPAY [id number] [place] [address] Care Teams Sales And Marketing Director Relationship Specialty Start Date End Date Colin Caldera MD [address] [place] [address] PCP - General Family Medicine 02/27/21
[2025-01-29 15:01] LABS: Basophils % 0.3 % (0.1-2.0); Eosinophils # 0.2 Kmm3 (0.0-0.4); Eosinophils % 2.7 % (0.1-12.0); Hematocrit 46.8 % (42.0-52.0); Hemoglobin 15.2 g/dL (14.1-18.0); Immature Granulocytes # 0.02 10^3uL; Immature Granulocytes % 0.3 %; Lymphocytes # 2.4 K/mm3 (0.7-4.5); Lymphocytes % 37.5 % (10-50); Mean Corpuscular HGB Conc 32.5 g/dL (31.8-35.4); Mean Corpuscular Hemoglobin 27.9 pg (27.0-31.2); Mean Corpuscular Volume 85.9 fl (80-94); Mean Platelet Volume 10.7 fl (7.4-10.4); Monocytes # 0.6 K/mm3 (0.1-1.0); Monocytes % 8.7 % (1.7-9.3); Neutrophils # 3.2 K/mm3 (1.8-7.8); Neutrophils % 50.5 % (37.0-80.0); Nucleated Red Blood Cells # 0 10^3/uL; Nucleated Red Blood Cells % 0 %; Platelet Count 250 K/mm3 (142-424); Red Blood Count 5.45 M/mm3 (4.60-6.20); Red Cell Distribution Width 13.9 % (11.5-17.5); White Blood Count 6.3 K/mm3 (4.8-10.8)
[2025-01-30 08:12] LABS: Sex Hormone Binding Globulin 21.5 nmol/L (19.3-76.4); Testosterone,Total 422 ng/dL (264-916)
== END 2025-01-29 23:59 | disposition home or self-care (01) ==
LOC: LAB 14:19
PROVIDERS: PCP Family Medicine; Visit Provider Urology
DX: N40.0 Benign prostatic hyperplasia without lower urinary tract symptoms (principal)
CPT/HCPCS: 36415; 84270; 84403; 85025

== ENCOUNTER 2025-02-16 06:15 | Emergency (ER) | payer BC, SELFPAY ==
--- OUTSIDE RECORDS SUMMARY | 2024-04-04 11:45 | XMS_ITS ---
Author Organization [facility] Address [address] [facility] [address] [place] [id number] Care Team Providers Care Splash Line Operator Name Role Phone Parveen Caldera Primary Care Provider [phone] Allergies No Known Allergies Results Component Value Reference Range Notes H-CBC Reviewed date:04/10/2024 08:32:26 PM Interpretation:mchc 31.5 Performing Lab: Notes/Report: WBC 6.4 4.8-10.8 K/mm3 RBC 5.50 4.60-6.20 M/mm3 HGB 15.5 14.1-18.0 g/dL HCT 49.4 42.0-52.0 % MCV 89.8 80-94 fl MCH 28.3 27.0-31.2 pg MCHC 31.5 31.8-35.4 g/dL RDW 14.4 11.5-17.5 % PLT 231 142-424 K/mm3 MPV 8.3 7.4-10.4 fl NE% 50.0 37.0-80.0 % LY% 39.6 10-50 % MO% 7.0 1.7-9.3 % EO% 2.9 0.1-12.0 % BA% 0.6 0.1-2.0 % NE# 3.2 1.8-7.8 K/mm3 LY# 2.5 0.7-4.5 K/mm3 MO# 0.5 0.1-1.0 K/mm3 EO# 0.2 0.0-0.4 K/mm3 BA# 0.0 0-0.2 K/mm3 H-Lipid Panel Reviewed date:04/10/2024 08:32:27 PM Interpretation:dldl 82.31 Performing Lab: Notes/Report: Patient Fasting? Y TRIG 114 30-150 mg/dl CHOL 150 140-200 mg/dl DLDL 82.31 100-129 mg/dL VLDL 23 0-40 mg/dL HDL 44 40-60 mg/dl CHLHDL 3.4 1-3.5 H-CMP Reviewed date:04/10/2024 08:32:27 PM Interpretation:gluc 113 Performing Lab: Notes/Report: NA 139 136-145 mmol/L K 4.3 3.5-5.1 mmoL/L CL 107 98-107 mmol/L CO2 27 22.0-30.0 mmol/L GAP 9.3 5-15 mEq/L BUN 17 9-20 mg/dl CREATT 0.80 0.66-1.25 mg/dl GFRAA 119 >60 ML/MIN EGFR 98 >60 ml/min GLU 113 74-100 mg/dl CA 9.2 8.4-10.2 mg/dl BILIT 0.6 0.2-1.3 mg/dl AST 22 17-59 U/L ALT 25 12-78 U/L TP 6.6 6.3-8.2 g/dl ALB 4.0 3.5-5.0 g/dl GLOB 2.6 1.3-3.2 g/dL AGRATIO 1.5 1.1-1.8 ALP 67 38-126 U/L H-Glycohemoglobin A1C Reviewed date:04/10/2024 08:32:27 PM Interpretation:6.3 Performing Lab: Notes/Report: HGBA1C 6.3 4.0-6.0 % < 6% Non-Diabetic Level < 7% Controlled Diabetic Level > 8% Poorly Controlled Diabetic Level H-PSA Reviewed date:04/10/2024 08:32:27 PM Interpretation:Normal Performing Lab: Notes/Report: PSASC 0.8 0.0-4.0 ng/ml H-Testosterone, total Reviewed date:04/10/2024 03:50:18 PM Interpretation: Performing Lab: Notes/Report: REASON FOR VISIT med checkup, Needs labs with PSA & shingles vaccine Medications Medication SIG (Take, Route, Frequency, Duration) Notes Start Date End Date Status Nabumetone 750 MG Take 2 tablets by mouth once daily; Duration: 90 Active Bisoprolol Fumarate 10 MG 1 tab(s) orally once a day Active Testosterone Cypionate 100 MG/ML as directed intramuscularly Active Valsartan 160 MG 1 tablet Once a day Active busPIRone HCl 10 MG 1.5 tablet Orally Twice a day; Duration: 90 days Active Vitamin D3 50 MCG (2000 UT) 2 tablet Orally Once a day 03/05/2023 Active Tamsulosin HCl 0.4 MG 1 cap(s) orally once a day Active Fish Oil 1000 MG 1 capsule Orally Onc e a day; Duration: 30 day(s) Active Bumetanide 2 MG 1 tablet Orally Once a day; Duration: 30 day(s) Active Vitamin D3 25 MCG (1000 UT) 1 tab(s) orally once a day 01/06/2012 Active clonazePAM 0.5 MG 1 tablet Orally At B ed Time 04/04/2024 Active FLUoxetine HCl 40 MG 1 tablet Orally Once a day please keep appointment Active Omeprazole 40 MG 1 cap(s) orally once a day Active Rosuvastatin Calcium 10 MG 1 tablet Orally Once a day Active Fiber Choice 1.5 GM as directed Orally Active Problems Problem Type SNOMED Code ICD Code Onset Dates Problem Status W/U Status Risk Notes Problem Hyperglycemia (R73.9) Active confirmed Vital Signs Blood pressure systolic 138 mm Hg 04/04/20 24 Blood pressure diastolic 80 mm Hg 024 Heart Rate 79 /min 04/04/2024 Height 70.50 in 04/04/2024 Weight 253 lbs 04/04/2024 BMI 35.78 kg/m2 04/04/2024 Encounters Encounter Location Date Provider Diagnosis [facility] [address] [facility] [address] [place] [phone] 04/04/2024 Parveen Caldera Hyperglycemia R73.9 ; REM sleep behavior 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 ; HTN (hypertension) I10 ; GERD (gastroesophageal reflux disease) K21.9 ; Hypotestosteronism E29.1 ; Dyslipidemia E78.5 and JHOAN (obstructive sleep apnea) G47.33 Assessments Encounter Date Diagnosis (ICD Code) Assessment Notes Treatment Notes Treatment Clinical Notes Section Notes 04/04/2024 Hyperglycemia (ICD-1 0 - R73.9) 04/04/2024 REM sleep behavior disorder (ICD-10 - G47.52) 04/04/2024 HTN (hypertension) (ICD-10 - I10) 04/04/2024 GERD (gastroesophage al reflux disease) (ICD-10 - K21.9) 04/04/2024 Hypotestosteronism (ICD-10 - E29.1) 04/04/2024 Dyslipidemia (ICD-10 - E78.5) 04/04/2024 JHOAN (obstructive sle ep apnea) (ICD-10 - G47.33) Plan Of Treatment Medication Medication Name Sig Start Date Stop Date Notes Bisoprolol Fumarate 10 MG 1 tab(s) orally once a day Testosterone Cypionate 100 MG/ML as directed intramuscularly Valsartan 160 MG 1 tablet Once a day clonazePAM 0.5 MG 1 tablet Orally At B ed Time 04/04/2024 FLUoxetine HCl 40 MG 1 tablet Orally Onc e a day please keep appointment Omeprazole 40 MG 1 cap(s) orally once a day Rosuvastatin Calcium 10 MG 1 tablet Orally Once a day Next Appt Details Follow Up: 6 Months, Reason: Provider Name:Parveen Tovar, 04/10/2025 10:00:00 AM, [address] [facility] [address] [facility], [address] , [place], [place], [id number], Progress Notes * EITAN MEDELLINOB:1960 (64 yo M)Acc No.[id number]:04/04/2024 Progress Notes Patient: SAMM DOBBS Provider: Parveen Caldera M.D. :1960 A ge:63 Y S ex:Male Date:04/04/2024 Address:[address] [place] [address], [facility], [id number] Subjective: * Chief Complaints: * 1 . Med checkup. 2. Needs labs with PSA & shingles vaccine. * HPI: C ardiology: Pt presents today for a check up with refills. Patient reports occasional elevated blood pressure readings at home but overall feels it is averaging in the normal range. Pt is also due for lab work. Pt is not fasting today. Denies : Chest Pain. D enies : Short of Breath. D enies : Palpitations. D enies : Leg Edema. C onstitutional: He is still not sleeping well at night which is contributing to some daytime fatigue. He persists with leg jerking and thrashing at night. Dr. Verma has previously recommended a trial of clonazepam and he now thinks he would like to give this a try. D ermatology: Patient states a couple of months ago he sustained what he describes as a very superficial laceration in the posterior axilla which is since healed but he still feels a sensation of numbness but also seems to be slowly resolving. * ROS: D ERMATOLOGY: no R pk. n o H sarthak. G ASTROENTEROLOGY: no N ausea. n o V omiting. n o D iarrhea.? U ROLOGY: no D ifficulty urinating. n o B lood in urine. * Medical History: A s child had some kind of kidney disease, Hypertension, Allergic rhinitis, Low back pain, Testosterone deficiency, Hemorrhoids, Depression, Abnormal Stress Test 2013, GERD, Congestive Heart Failure, JHOAN. * Surgical History: h emorrhoidectomy , Colonoscopy , Hernia Repair 03/16/2022, Knee Surgery Left Meniscus 12/01/22. * Family History: F ather: unknown. M other: alive 58 yrs, hypertension. P aternal Grand Father: . P aternal Grand Mother: . M aternal Grand Father: . M aternal Grand Mother: . 2 brother(s) , 1 sister(s) . 1 son(s) , 2 daughter(s) . . * Social History: C URRENT TOBACCO USE S moking Status: Patient does NOT smoke. C affeine: yes, frequency: every day 1 soft drink. Exercise: no. Home smoke detector use: yes. Marital Status: . New since last visit: none. Occupation: yes. Past smoking status: no, Smoking status: Does not smoke. Occup. exposure: none. Recreational drug use: no. Alcohol: Type: , Frequency: ,Years: , Determination:, occasional. Sexually active: yes. Travel ouside [place]: no. * Medications: T aking Fiber Choice 1.5 GM Tablet Chewable as directed Orally , Taking Fish Oil 1000 MG Capsule 1 capsule Orally Once a day , Taking Bumetanide 2 MG Tablet 1 tablet Orally Once a day , Taking Vitamin D3 25 MCG (1000 UT) Tablet 1 tab(s) orally once a day , Taking Tamsulosin HCl 0.4 MG Capsule 1 cap(s) orally once a day , Taking Testosterone Cypionate 100 MG/ML Solution as directed intramuscularly , Taking Vitamin D3 50 MCG (2000 UT) Tablet 2 tablet Orally Once a day , Taking Valsartan 160 MG Tablet 1 tablet Once a day , Taking Bisoprolol Fumarate 10 MG Tablet 1 tab(s) orally once a day , Taking Nabumetone 750 MG Tablet Take 2 tablets by mouth once daily , Taking Omeprazole 40 MG Capsule Delayed Release 1 cap(s) orally once a day , Taking Rosuvastatin Calcium 10 MG Tablet 1 tablet Orally Once a day , Taking busPIRone HCl 10 MG Tablet 1.5 tablet Orally Twice a day , Taking FLUoxetine HCl 40 MG Capsule 1 tablet Orally Once a day , Notes to Pharmacist: please keep appointment, Medication List reviewed and reconciled with the patient * Allergies: N .K.D.A. Objective: * Vitals: W t:253, Temp:97.8, BP:138/80, HR:79, O2 Sat:98% on RA, Nurse:AMADA, Ht: 70.50, BMI:35.78. * Examination: G eneral Examination: General Appearance: N AD. H eart: R SR. L ungs:?clear to auscultation. S kin: N o skin lesions or rash in the left axilla. E xtremities: T race ankle edema. Assessment: * Assessment: 1. H yperglycemia - R73.9 (Primary) 2 . R EM sleep behavior disorder - G47.52 3 . H TN (hypertension) - I10 4 . G ERD (gastroesophageal reflux disease) - K21.9 5 . H ypotestosteronism - E29.1 6 . Dyslipidemia - E78.5 7 . O SA (obstructive sleep apnea) - G47.33 ? Plan: * Treatment: 2. H TN (hypertension) Continue Valsartan Tablet, 160 MG, 1 tablet, Once a day; C ontinue Bisoprolol Fumarate Tablet, 10 MG, 1 tab(s), orally, once a day. 3. G ERD (gastroesophageal reflux disease) Continue Omeprazole Capsule Delayed Release, 40 MG, 1 cap(s), orally, once a day. 4. H ypotestosteronism Continue Testosterone Cypionate Solution, 100 MG/ML, as directed, intramuscularly. 5. D yslipidemia Continue Rosuvastatin Calcium Tablet, 10 MG, 1 tablet, Orally, Once a day. 6. O thers Refill FLUoxetine HCl Capsule, 40 MG, 1 tablet, Orally, Once a day, 90, Refills 3, Notes to Pharmacist: please keep appointment. * Labs: * L ab: H-Lipid Panel (Collection Date & Time - 04/09/2024 08:52 AM) d ldl 82.31 Value Reference Range T RIG 114 30-150 - mg/dl * C HOL 150 140-200 - mg/dl * D LDL 82.31 L 100-129 - mg/dL * V LDL 23 0-40 - mg/dL * H DL 44 40-60 - mg/dl * C HLHDL 3.4 1-3.5 - * Parveen Caldera 04/10/2024 8 :32:18 PM >See phone encounter ?Lab: H-PSA (Collection Date & Time - 04/09/2024 08:52 AM)?Normal* Value Reference Range P SASC 0.8 0.0-4.0 - ng/ml * Parveen Caldera 04/10/2024 8 :32:18 PM >See phone encounter ?Lab: H-CMP (Collection Date & Time - 04/09/2024 08:52 AM)?gluc 113* Value Reference Range N A 139 136-145 - mmol/L * K 4.3 3.5-5.1 - mmoL/L * C L 107 98-107 - mmol/L * C O2 27 22.0-30.0 - mmol/L * G AP 9.3 5-15 - mEq/L * B UN 17 9-20 - mg/dl * C REATT 0.80 0.66-1.25 - mg/dl * G FRAA 119 >60 - ML/MIN * E GFR 98 >60 - ml/min * G CHARITY 113 H 74-100 - mg/dl * C A 9.2 8.4-10.2 - mg/dl * B ILIT 0.6 0.2-1.3 - mg/dl * A ST 22 17-59 - U/L * A LT 25 12-78 - U/L * T P 6.6 6.3-8.2 - g/dl * A LB 4.0 3.5-5.0 - g/dl * G LOB 2.6 1.3-3.2 - g/dL * A GRATIO 1.5 1.1-1.8 - * A LP 67 38-126 - U/L * Parveen Caldera 04/10/2024 8 :32:18 PM >See phone encounter ?Lab: H-CBC (Collection Date & Time - 04/09/2024 08:52 AM)?mchc 31.5* Value Reference Range W BC 6.4 4.8-10.8 - K/mm3 * R BC 5.50 4.60-6.20 - M/mm3 * H GB 15.5 14.1-18.0 - g/dL * H CT 49.4 42.0-52.0 - % * M CV 89.8 80-94 - fl * M CH 28.3 27.0-31.2 - pg * M CHC 31.5 L 31.8-35.4 - g/dL * R DW 14.4 11.5-17.5 - % * P LT 231 142-424 - K/mm3 * M PV 8.3 7.4-10.4 - fl * N E% 50.0 37.0-80.0 - % * L Y% 39.6 10-50 - % * M O% 7.0 1.7-9.3 - % * E O% 2.9 0.1-12.0 - % * B A% 0.6 0.1-2.0 - % * N E# 3.2 1.8-7.8 - K/mm3 * L Y# 2.5 0.7-4.5 - K/mm3 * M O# 0.5 0.1-1.0 - K/mm3 * E O# 0.2 0.0-0.4 - K/mm3 * B A# 0.0 0-0.2 - K/mm3 * Parveen Caldera 04/10/2024 8 :32:18 PM >See phone encounter ?Lab: H-Glycohemoglobin A1C (Collection Date & Time - 04/09/2024 08:52 AM) ?6.3* Value Reference Range H GBA1C 6.3 H 4.0-6.0 - % * Parveen Caldera 04/10/2024 8 :32:18 PM >See phone encounter ?Lab: H-Testosterone, total (Collection Date & Time - 04/10/2024)* see duplicate order * Procedure Codes: 9 4760 PULSE OX * Follow Up: 6 Months * Images: Billing Information: * Visit Code: 93222 Office Visit, Est Pt., Level 4. * Procedure Codes: 88313 PULSE OX. * Electronic signature of Parveen Caldera MD on 02/16/2025 at 06:26 AM EDT Sign off status: Pending * Provider: Parveen Caldera M.D. Date: 0 04/04/2024 Generated for Elena kelley/Earl/eTransmitting on: 0 02/16/2025 06:26 AM EDT History and Physical Notes * HPI (History of Present Illness) Category Sub-Category Detail Notes Category Not es Cardiology Short of Breath Chest Pain Palpitations Leg Edema Examination Category Sub-Category Detail Notes Category Not es General Examination Heart: RSR Lungs: clear to auscultatio n Extremities: Trace ankle edema General Appearance: NAD Skin: No skin lesions or r pk in the left axilla
--- OUTSIDE RECORDS SUMMARY | 2024-10-10 12:30 | XMS_ITS ---
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 Name Role Phone Parveen Caldera Primary Care Provider Allergies No Known Allergies REASON FOR VISIT 6 month check up, Needs shingles vaccine Medications Medication SIG (Take, Route, Frequency, Duration) Notes Start Date End Date Status Bumetanide 2 MG 1 tablet Orally Once a day; Duration: 30 day(s) Active Nabumetone 750 MG Take 2 tablets by [facility] once daily; Duration: 90 Active Valsartan 160 MG 1 tablet Once a day; Duration: 90 days Active Vitamin D3 25 MCG (1000 UT) 1 tab(s) orally once a day 01/06/2012 A ctive Vitamin D3 50 MCG (2000 UT) 2 tablet Orally Once a day 03/05/2023 A ctive Fiber Choice 1.5 GM as directed Orally Active Fish Oil 1000 MG 1 capsule Orally Onc e a day; Duration: 30 day(s) Active Rosuvastatin Calcium 10 MG 1 tablet Orally Once a day A ctive Omeprazole 40 MG 1 cap(s) orally once a day Active Bisoprolol Fumarate 10 MG 1 tab(s) orally once a day Active Tamsulosin HCl 0.4 MG 1 cap(s) orally once a day Active FLUoxetine HCl 40 MG 1 cap(s) once daily Active Valsartan 160 MG 1 tablet Once a day Active Testosterone Cypionate 100 MG/ML as directed intramuscularly Active clonazePAM 0.5 MG 1 tablet Orally At Bed Time 09/17 Active Rosuvastatin Calcium 10 MG 1 tablet Orally Once a day; Duration: 90 days Active busPIRone HCl 10 MG 1.5 tablet Orally Tw ice a day; Duration: 90 days Active Omeprazole 40 MG 1 cap(s) orally once a day; Duration: 90 days Active Problems Problem Type SNOMED Code ICD Code Onset Dates Problem Status W/U Status Risk Notes Problem Benign prostatic hyperplasia (539866052) BPH (benign prostatic hyperplasia) (N40.0) Active confirmed Vital Signs Blood pressure systolic 130 mm Hg 10/10/19 25 Blood pressure diastolic 84 mm Hg 025 Heart Rate 100 /min 10/10/2024 Height 70.50 in 10/10/2024 Weight 257.2 lbs 10/10/2024 BMI 36.38 kg/m2 10/10/2024 Encounters Encounter Location Date Provider Diagnosis [facility] [address] [phone] 10/10/2024 Parveen Caldera Hyperglycemia R73.9 ; REM sleep behavior 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 ; HTN (hypertension) I10 ; GERD (gastroesophageal reflux disease) K21.9 ; Hypotestosteronism E29.1 ; Dyslipidemia E78.5 ; JHOAN (obstructive sleep apnea) G47.33 ; BPH (benign prostatic hyperplasia) N40.0 and Depression F32.9 Assessments Encounter Date Diagnosis (ICD Code) Assessment Notes Treatment Notes Treatment Clinical Notes Section Notes 10/10/2024 Hyperglycemia (ICD-1 0 - R73.9) 10/10/2024 REM sleep behavior disorder (ICD-10 - G47.52) 10/10/2024 HTN (hypertension) (ICD-10 - I10) 10/10/2024 GERD (gastroesophage al reflux disease) (ICD-10 - K21.9) 10/10/2024 Hypotestosteronism (ICD-10 - E29.1) 10/10/2024 Dyslipidemia (ICD-10 - E78.5) 10/10/2024 JHOAN (obstructive sle ep apnea) (ICD-10 - G47.33) 10/10/2024 BPH (benign prostati c hyperplasia) (ICD-10 - N40.0) 10/10/2024 Depression (ICD-10 - F32.9) Plan Of Treatment Medication Medication Name Sig Start Date Stop Date Notes Rosuvastatin Calcium 10 MG 1 tablet Orally Once a day Omeprazole 40 MG 1 cap(s) orally once a day Bisoprolol Fumarate 10 MG 1 tab(s) orally once a day Tamsulosin HCl 0.4 MG 1 cap(s) orally once a day FLUoxetine HCl 40 MG 1 cap(s) once daily Valsartan 160 MG 1 tablet Once a day Testosterone Cypionate 100 MG/ML as directed intramuscularly clonazePAM 0.5 MG 1 tablet Orally At Bed Time 10/11/2024 Next Appt Details Follow Up: 6 Months, Reason: Provider Name:Parveen Tovar, 04/10/2025 10:00:00 AM, [address], [address], [place], [place], [phone], Progress Notes * EITAN MEDELLINOB:1960 (64 yo M)Acc No.[id number]:10/10/2024 Progress Notes Patient: SAMM DOBBS Provider: Parveen Caldera M.D. :1960 A ge:64 Y S ex:Male Date:10/10/2024 Address:[address] [place] [address] ANTHONY, BERR Y, [id number] Subjective: * Chief Complaints: * 1 . 6 month check up. 2. Needs shingles vaccine. * HPI: H PI: 64 year old male presents with c/o Patient is here today for?Pt is here for a scheduled 6 month check up. Pt sts he is doing well and has no concerns or complaints at this time. He is anticipating halfway in December.. C ardiology: He continues to follow with cardiology with no change in his regimen. Denies : Chest Pain. D enies : Short of Breath. D enies : Palpitations. D enies : Leg Edema. M perez Reproductive: He follows with urology (Dr. Esparza) and has been more compliant with using his testosterone injections. * ROS: D ERMATOLOGY: no R pk. n o H sarthak. G ASTROENTEROLOGY: no N ausea. n o V omiting. n o D iarrhea.? U ROLOGY: no D ifficulty urinating. n o B lood in urine. * Medical History: A s child had some kind of kidney disease, Hypertension, Allergic rhinitis, Low back pain, Testosterone deficiency, Hemorrhoids, Depression, Abnormal Stress Test 2013, GERD, JHOAN, BPH - Dr. Esparza. * Surgical History: h emorrhoidectomy , Colonoscopy [...] cap(s) orally once a day , Taking Vitamin D3 50 MCG (2000 UT) Tablet 2 tablet Orally Once a day , Taking Testosterone Cypionate 100 MG/ML Solution as directed intramuscularly , Taking Bisoprolol Fumarate 10 MG Tablet 1 tab(s) orally once a day , Taking Nabumetone 750 MG Tablet Take 2 tablets by mouth once daily , Taking Valsartan 160 MG Tablet 1 tablet Once a day , Taking busPIRone HCl 10 MG Tablet 1.5 tablet Orally Twice a day , Taking Rosuvastatin Calcium 10 MG Tablet 1 tablet Orally Once a day , Taking Omeprazole 40 MG Capsule Delayed Release 1 cap(s) orally once a day , Taking clonazePAM 1 MG Tablet 1 tablet Orally At Bed Time , Taking FLUoxetine HCl 40 MG Capsule TAKE 1 CAPSULE BY MOUTH ONCE DAILY . APPOINTMENT REQUIRED FOR FUTURE REFILLS , Medication List reviewed and reconciled with the patient * Allergies: N .K.D.A. Objective: * Vitals: W t:257.2, Temp:98.5, BP:130/84, HR:100, O2 Sat:95% on RA, Nurse:deloris, Ht: 70.50, BMI:36.38. * Examination: C ardiology: General Appearance: p leasant, NAD. Affect good. H EENT: u nremarkable. C arotid upstroke: n ormal, no bruits. H eart sounds: R RR, normal S1, S2. M urmur, click , gallop: n one. L ungs: c lear, no rales or wheezes. A bdomen: p ositive BS, soft, nontender. E xtremities: T race ankle edema. ? Assessment: * Assessment: 1. H yperglycemia - R73.9 (Primary) 2 . R EM sleep behavior disorder - G47.52 3 . H TN (hypertension) - I10 4 . G ERD (gastroesophageal reflux disease) - K21.9 5 . H ypotestosteronism - E29.1 6 . Dyslipidemia - E78.5 7 . O SA (obstructive sleep apnea) - G47.33 ?8. B PH (benign prostatic hyperplasia) - N40.0 9 . D epression - F32.9? Plan: * Treatment: 2. H TN (hypertension) [...] 1 tablet, Orally, Once a day. 6. B PH (benign prostatic hyperplasia) Continue Tamsulosin HCl Capsule, 0.4 MG, 1 cap(s), orally, once a day. 7. D epression Refill FLUoxetine HCl Capsule, 40 MG, 1 cap(s), once daily, 90, Refills 1. * Procedure Codes: 9 4760 PULSE OX, 3075F SYST BP GE 130 - 139MM HG, 3079F DIAST BP 80-89 MM HG * Follow Up: 6 Months * Images: Billing Information: * Visit Code: 88920 Office Visit, Est Pt., Level 4. * Procedure Codes: 38014 PULSE OX. 3075F SYST BP GE 130 - 139MM HG. 3079F DIAST BP 80-89 MM HG. * Electronic signature of Parveen Caldera MD on 02/16/2025 at 06:26 AM EDT Sign off status: Pending * Provider: Parveen Caldera M.D. Date: 10/10/2024 Generated for Elena kelley/Earl/Noelle on: 0 02/16/2025 06:26 AM EDT History and Physical Notes * HPI (History of Present Illness) Category Sub-Category Detail Notes Category Not es Cardiology Short of Breath Chest Pain Palpitations Leg Edema HPI Patient is here today for Pt is here for a scheduled 6 month check up. Pt sts he is doing well and has no concerns or complaints at this time. He is anticipating halfway in December. Examination Category Sub-Category Detail Notes Category Not es Cardiology Lungs: clear, no rales or wheezes HEENT: unremarkable Heart sounds: RRR, normal S1, S2 Abdomen: positive BS, soft, n ontender Carotid upstroke: normal, no bruits Extremities: Trace ankle edema Murmur, click , gallop: none General Appearance: pleasant, NAD. Affec t good
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
--- OUTSIDE RECORDS SUMMARY | 2025-02-16 06:26 | XMS_ITS | Encounter Summary ---
Author Organization [facility] Address [address] [place] [address] Care Team Providers Care Endoscopy Registered Nurse Name Role Phone Colin Caldera MD Primary Care Provider +1- [phone] Encounter Details Date Type Department Care Team (Latest Contact Info) Description 02/08/2025 Travel Social History Tobacco Use Types Packs/Day Years Used Date Smoking Tobacco: Never Assessed Sex and Gender Information Value Date Recorded Sex Assigned at Not on file Legal Sex Male 8:38 PM EDT Gender Identity Not on file Sexual Orientation Not on file documented as of this encounter Functional Status * Calculated C-SSRS Risk Score (Lifetime/Recent) Answer Date of Assessment Author No Risk Indicated 02/08/2025 4:34 PM EDT Feliz Thompson RN * Question Answer Date of Assessment Author 1. Wish to be (Past 1 Month) No 025 4:34 PM EDT Shaunna Thompson, RN 2. Non-Specific Active Suici merrill Thoughts (Past 1 Month) No 02/08/2025 4:34 PM EDT Shaunna Thompson, RN 6. Suicidal Behavior (Lifetime) No 4:34 PM EDT Shaunna Thompson, RN documented as of this encounter Plan of Treatment Not on file documented as of this encounter Visit Diagnoses Not on filedocumented in this encounter Care Teams Endoscopy Registered Nurse Relationship Specialty Start Date End Date Colin Caldera MD [address] [place] [address] PCP - General 12/27/20 documented as of this encounter
--- OUTSIDE RECORDS SUMMARY | 2025-02-16 06:26 | XMS_ITS | Data Portability ---
Author Organization [facility] [place] [facility] Address [address] [place] [id number] Assessment No assessment recorded. Plan of Treatment Reminders Order Date Submit Date Provider Last Modified By Organization Details Last Modified Time Details Appointments None record ed. Lab None record ed. Referral None record ed. Procedures None record ed. Surgeries None record ed. Imaging None record ed. Medication Orders None record ed. Patient TargetsNo targets recorded. Patient InstructionsNo instructions recorded. Reason for Referral None Reported. Results Created Date Observation Date Name Description Value Unit Range Abnormal Flag Note LastModifiedBy Organization Detail LastModifiedTime 10/25/1910/24/2024 audio gram No observ ation record ed. BARCODE Not Available 2024 13:44:40 Result Notes None recorded. Problems Name Problem SNOMED Code Status Onset Date Resolution Date Notes Provider Name and Address Organization Details Recorded Time Sensorineural hearing loss 72561620 Active 2022 PIYUSH LOPEZ [address] [facility], [place], [address] , [facility] & [place] 3 09:38:55 Problem Notes None recorded. Procedures Surgical History Date Name Laterality Status Provider Name and Address Organization Details Recorded Time 5 Cerumen removal with microscope completed SAVANNAH TRAYLOR NP [address] [facility], [place], [address], [facility] & [place] 10/24/2024 13:30:47 Imaging Results None recorded. Procedure Notes None recorded. Medical Equipment None Reported. Allergies No known drug allergies Medications Name Sig Start Date Stop Date Status Note LastModified by Organization Details LastModified Time fluoxetine 40 mg capsule TAKE 1 CAPSULE BY MOUTH ONCE DAILY active Not Available Not Available No t Available promethazin e-DM 6.25 mg-15 mg/5 mL oral syrup 10/24 completed Not Available Not Available Not Available doxycycline hyclate 100 mg capsule TAKE 1 CAPSULE BY MOUTH TWICE DAILY 10/24 completed Not Available Not Available Not Available bumetanide 2 mg tablet TAKE 1 TABLET BY MOUTH ONCE DAILY active Not Available Not Available No t Available nabumetone 750 mg tablet TAKE 2 TABLETS BY MOUTH ONCE DAILY active Not Available Not Available No t Available azithromyci n 250 mg tablet 10/24 completed Not Available Not Available Not Available hydrocodone 5 mg-acetamin ophen 325 mg tablet TAKE 1 TABLET BY MOUTH EVERY 4 HOURS NEEDED FOR POST OP PAIN 10/24 completed Not Available Not Available Not Available clonazepam 0.5 mg tablet TAKE 1 TABLET BY MOUTH AT BEDTIME 10/24 completed Not Available Not Available Not Available clonazepam 1 mg tablet TAKE 1 TABLET BY MOUTH AT BEDTIME active Not Available Not Available No t Available omeprazole 40 mg capsule,del ayed release TAKE 1 CAPSULE BY MOUTH ONCE DAILY active Not Available Not Available No t Available BD SafetyGlide Syringe 3 mL 22 x 1 1/2 USE DIRECTED active Not Available Not Available No t Available bisoprolol fumarate 10 mg tablet TAKE 1 TABLET BY MOUTH ONCE DAILY active Not Available Not Available No t Available amoxicillin 875 mg tablet 10/24 completed Not Available Not Available Not Available tamsulosin 0.4 mg capsule TAKE 1 CAPSULE BY MOUTH TWICE DAILY active Not Available Not Available No t Available benzonatate 100 mg capsule TAKE 1 CAPSULE BY MOUTH THREE TIMES DAILY NEEDED FOR COUGH 10/24 completed Not Available Not Available Not Available oseltamivir 75 mg capsule TAKE 1 CAPSULE BY MOUTH EVERY 12 HOURS FOR 5 DAYS 10/24 completed Not Available Not Available Not Available buspirone 10 mg tablet TAKE 1 & 1/2 (ONE & ONE-HALF) TABLETS BY MOUTH TWICE DAILY active Not Available Not Available No t Available montelukast 10 mg tablet 10/24 completed Not Available Not Available Not Available testosteron e cypionate 200 mg/mL intramuscul ar oil INJECT 0.5ML INTRAMUSC UARLY ONCE WEEKLY THEN DISCARD THE REMAINDER OF THE VIAL active Not Available Not Available No t Available methylpredn isolone 4 mg tablets in a dose pack TAKE BY MOUTH DIRECTED ON INSIDE OF PACKAGE 10/24 completed Not Available Not Available Not Available BD Luer-Rolanda Syringe 3 mL 18 x 1 1/2 USE DIRECTED active Not Available Not Available No t Available losartan 100 mg tablet TAKE 1 TABLET BY MOUTH ONCE DAILY 10/24 completed Not Available Not Available Not Available amoxicillin 875 mg-marga m clavulanate 125 mg tablet TAKE 1 TABLET BY MOUTH EVERY 12 HOURS 10/24 completed Not Available Not Available Not Available valsartan 160 mg tablet TAKE 1 TABLET BY MOUTH ONCE DAILY active Not Available Not Available No t Available rosuvastati n 10 mg tablet TAKE 1 TABLET BY MOUTH ONCE DAILY active Not Available Not Available No t Available BD SafetyGlide Syringe 3 mL 23 x 1 USE DIRECTED active Not Available Not Available No t Available duloxetine 60 mg capsule,del ayed release TAKE 1 CAPSULE BY MOUTH ONCE DAILY active Not Available Not Available No t Available BD Short Bevel [place] 18 gauge x 1 1/2 USE DIRECTED active Not Available Not Available No t Available Mucus Relief ER 600 mg tablet, extended release 10/24 completed Not Available Not Available Not Available Vraylar 1.5 mg capsule TAKE 1 CAPSULE BY MOUTH ONCE DAILY 10/24 completed Not Available Not Available Not Available UltiCare Safety Syringe 3 mL 22 gauge x 1 USE DIRECTED active Not Available Not Available No t Available Vitals Date Recorded Body weight Body temperature Provider N efra and Address Organization Details Last Updated DateTime 10/24/2024 648294.61 g 97.7 [degF] Marissa [facility] 10/24/2024 12:58:39 Social History None recorded. Functional Status None recorded. Mental Status None recorded. Family History Nothing Reported. Medical History Condition Response Allergies/Hayfever N Heart Problems N None N Heart Conditions N Emphysema N Migraines N Thyroid Problems N Developmental Delay N Glaucoma N Depression N Anemia N Immune System Disorder N Anesthesia Complications N Heart Attack (TN) N Anxiety Disorder N Diabetes N Bleeding Disorder N Arthritis N Hearing Loss N Tuberculosis N Acid Reflux (GERD) N Hyperlipidemia Y Cancer N Stroke N Asthma N Sleep Disorder N GERD/Reflux N Heart Disease N Headaches N Fibromyalgia N Hypertension Y Speech Delay N Kidney Disease N Past Encounters Encounter ID Performer Location Encounter Start Date Encounter Closed Date Diagnosis/Indication Diagnosis SNOMED-CT Code Diagnosis ICD10 Code Diagnosis Note [id number] PIYUSH LOPEZ [facility] G -2340 [address] [facility] [address] [place] [address] 03/04/2023 09:18:30 03/04/2023 09:34:24 Sensorineural hearing loss 09313008 H90.3 [id number] PIYUSH LOPEZ [facility] [place] [id number] 10/10/2024 14:03:06 10/10/2024 14:27:14 Sensorineural hearing loss 11089541 H90.3 [id number] PIYUSH LOPEZ [facility] [place] [address] 10/24/2024 12:58:09 10/24/2024 13:37:21 Sensorineural hearing loss 63084440 H90.3 [id number] SAVANNAH TRAYLOR NP [facility] [id number] 10/24/2024 13:12:12 10/24/2024 13:32:58 Impacted cerumen in right ear 9020650608 871825 H61.21 Cerumen removed from right eacs. Advised patient to use baby oil for cerumen management . Follow up in 6 months for regular cleaning. Health Concerns Section Related Observation LastModified by Organization Detai ls LastModified Time None Recorded Concern Status LastModified by Organization Details LastModified Time None Recorded Advance Directives Directive None Recorded Payers Insurance Date Sequence Insurance Name Policy Number Policy Muniz Covered Member ID Muniz Member ID Guarantor Name 10/24/2024 1 [place] [id number] Myles Zuniga [id number] Myles Zuniga Notes Date Note Type Note Provider Name and Address Organization Details Recorded Time 03/04/2023 text/html Patient was seen today for a hearing aid service. Cleaned and adjusted hearing aids this date. PIYUSH LOPEZ [address] [place], [address], [facility] & [place] 03/04/2023 09:39:13 10/10/2024 text/html Patient was seen today for a hearing aid service. Cleaned and adjusted hearing aids this date. DONALDO FAULKNER, PIYUSH [address], [place], [address], [facility] & [place] 10/10/2024 14:27:05 10/24/2024 text/html 10/24/2024- patient here for ear cleaning, Sees our teacher selection specialist for hearing aids and was told his LE had a lot of wax in it. Denies ear pain. SAVANNAH TRAYLOR, SAMI [address], [place], [address], [facility] & [place] 10/24/2024 13:31:29 10/24/2024 text/html Mr. Zuniga was seen today for a hearing aid fitting. He was fit with Shannan Edge 16 R AI ROWDY hearing aids bilaterally. F/u prn. DONALDO FAULKNER, PIYUSH [address], [place], [address], [facility] & [place] 10/24/2024 13:39:03
--- OUTSIDE RECORDS SUMMARY | 2025-02-16 06:26 | XMS_ITS | Clinical Summary ---
Author Organization [facility] Address [address] [place] [address] Phone [email or web address] Care Team Providers Care Hand Drawer In Name Role Phone Colin Caldera MD Primary [...] DAILY FOR 90 DAYS 12/13/19 21 Active [place]-3 Fatty Acids (FISH OIL PO) Take by [...] NO COPAY NB ANTHEM IN COPAY 5 [facility] Address: [address] [place] [address] [facility] [address] [place] [address] Care Teams Hand Drawer In Relationship Specialty Start Date End Date Colin Caldera MD [address] [place] [address] PCP - General Family Medicine 02/27/21
--- OUTSIDE RECORDS SUMMARY | 2025-02-16 06:26 | XMS_ITS | Clinical Summary ---
Author Organization Healthcare Address [address] [place] [address] Care Team Providers Care Television News Anchor Name Role Phone Colin Caldera MD Primary Care Provider [phone] Allergies No known active allergies Medications doxycycline (Adoxa) 100 MG tabletIndicatio ns:Cellulitis of chest wall Take 1 tablet by mouth 2 times a day for 7 days. Take with a full glass of water and do not lie down for at least 30 minutes after 14 tablet 02/08/2025 02/16/20 25 Encounters Date Type Department Care Team Description 02/08/2025 3:50 PM EDT - 02/08/2025 5:01 PM EDT Emergency [facility] [address] [place] [address] Jesús Delgado MD Cellulitis of chest wall (Primary Dx); Spider bite wound, undetermined intent, initial encounter Discharge Disposition: Home or Self Care 02/08/2025 Travel from Last 3 Months Social History Tobacco Use Types Packs/Day Years [...] Mass Index 36.28 02/08/2025 11:50 AM EDT Plan of Treatment Health Maintenance Due Date Last Done Comments [facility]-Depression Screening 1962 [facility]-Infant/Child/Adol SDOH Screenings 1962 [facility]-Obesity Intervention 1968 [facility]- SDOH Screenings 1980 [facility]-Adult SDOH Screenings 1980 CT Colonography 2007 Colonoscopy 2007 FIT-DNA 2007 FIT 2007 FOBT 2007 Sigmoidoscopy 2007 [facility]-Colorectal Cancer Screening 2007 [facility]-Pneumococcal Vaccine: 50 + Years (1 of 1 - PCV) 2012 [facility]-Zoster Vaccines (1 of 2) 2012 REA-AODAG-89 Vaccine (2 - 20 24-25 season) 2024 11/22/2020 [facility]-Influenza Vaccine (#1) 2025 [facility]-DTaP,Tdap,and Td Vaccine s (2 - Td or Tdap) 03/01/2030 03/01/2020 [facility]-RSV Vaccine: 60+ Years o r (1 - 1-dose 75+ series) 2037 [facility]-HIV Screening Completed 02/08/2025 [facility]-Hepatitis C Screening Completed 02/08/2025 HPV Vaccines Aged Out No longer eligi ble based on patient's age to complete this topic [facility]-HIB Vaccines Aged Out No longer e ligible based on patient's age to complete this topic [facility]-Hepatitis A Vaccines Aged Out No longer eligible based on patient's age to complete this topic [facility]-IPV Vaccines Aged Out No longer e ligible based on patient's age to complete this topic [facility]-Rotavirus Vaccines Aged Out No lo nger eligible based on patient's age to complete this topic Procedures Procedure Name Priority Date/Time Associated Diagnosis Comments ED HIV 1/2 ANTIBODY/ANTIGEN SCREEN WITH REFLEX TO HIV I/II DIFFERENTIATION STAT 02/08/2025 11:59 AM EDT ED PROTOCOL HIV 1/2 ANTIBODY/ANTIGEN SCREEN W/REFLEX TO HIV 1/2 ANTIBODY DIFFERENTIATION STAT 02/08/2025 11:59 AM EDT HEPATITIS C ANTIBODY - ED W/REFLEX TO HCV QUANT PCR STAT 02/08/2025 11:59 AM EDT FREE HEMOGLOBIN,PLASMA STAT 11:59 AM EDT SEDIMENTATION RATE, AUTOMATED STAT 02/08/2025 11:59 AM EDT C-REACTIVE PROTEIN, PLASMA STAT 02/08/2025 11:59 AM EDT PROTHROMBIN TIME(PT) / INR STAT 02/08/2025 11:59 AM EDT CBC WITH AUTO DIFFERENTIAL STAT 02/08/2025 11:59 AM EDT COMPREHENSIVE METABOLIC PANEL, PLASMA STAT 02/08/2025 11:59 AM EDT [facility] ED POCUS PROCDOC Routine 02/08/2025 11:24 AM EDT from Last 3 Months Results * ED HIV 1/2 Antibody/Antigen Screen w/Reflex to HIV 1/2 Differentiation (02/08/2025 11:59 AM EDT) HIV 1 & 2 Antibody/Antigen Screen Non Reactive Non Reactive 02/08/2025 1:09 PM EDT [facility] Comment:Screening for HIV 1 & 2 antibodies, and P24 antigen is NONREACTIVE. No confirmatory testing is required. Blood Venous blood specimen / Unknown Venipuncture / Unknown 02/08/2025 11:59 AM EDT 02/08/2025 12:27 PM EDT us Jesús Delgado MD LAB BLOOD ORDERABLES Final Result [facility] [address] [place] [address] * Hepatitis C Antibody - ED (02/08/2025 11:59 AM EDT) Hepatitis C Antibody Negative Negative 02/08/2025 1:09 PM EDT [facility] Blood Venous blood specimen / Unknown Venipuncture / Unknown 02/08/2025 11:59 AM EDT 02/08/2025 12:27 PM EDT us Jesús Delgado MD LAB BLOOD ORDERABLES Final Result [facility] [address] [place] [address] * Sed rate, automated (02/08/2025 11:59 AM EDT) Pathologist [facility] Sedimentation Rate 19 <20 mm/hr 2024 1:17 PM EDT [facility] Blood Venous blood specimen / Unknown Venipuncture / Unknown 02/08/2025 11:59 AM EDT 02/08/2025 12:07 PM EDT us Jesús Delgado MD LAB BLOOD ORDERABLES Final Result [facility] [address] [place] [address] * PT-INR (02/08/2025 11:59 AM EDT) Pathologist [facility] Prothrombin Time 12.9 12.0 - 14.3 sec 02/08/2025 12:21 PM EDT [facility] INR 1.0 0.9 - 1.1 02/08/2025 12:21 PM EDT [facility] Blood Venous blood specimen / Unknown Venipuncture / Unknown 02/08/2025 11:59 AM EDT 02/08/2025 12:07 PM EDT Narrative [facility] - 02/08/2025 12:21 PM EDT OPTIMAL INR RANGES FOR PATIENT ON ORAL ANTICOAGULANT THERAPY Prevention of venous thromboembolism INR 2.0 to 3.0 In patients with heart disease: Atrial fibrillation INR 2.0 to 3.0 Valvular heart disease INR 2.0 to 3.0 Tissue heart valves INR 2.0 to 3.0 Mechanical prosthetic valves INR 2.5 to 3.5 Prevention of recurrent IL INR 2.5 to 3.5 Jesús Delgado MD LAB BLOOD ORDERABLES Final Result [facility] [address] [place] [address] * CBC w/diff (02/08/2025 11:59 AM EDT) [facility] WBC Count 5.93 3.70 - 10.30 10*3/uL LAB HEMATOLOGY METHOD 02/08/2025 12:10 PM EDT [facility] RBC Count 5.75 4.60 - 6.10 10*6/uL LAB HEMATOLOGY METHOD 02/08/2025 12:10 PM EDT [facility] HGB 15.9 13.7 - 17.5 g/dL LAB HEMATOLOGY METHOD 02/08/2025 12:10 PM EDT [facility] HCT 48.5 40.0 - 51.0 % LAB HEMATOLOGY METHOD 02/08/2025 12:10 PM EDT [facility] Platelet Count 205 155 - 369 10*3/uL LAB HEMATOLOGY METHOD 02/08/2025 12:10 PM EDT [facility] MCV 84 79 - 98 fL LAB HEMATOLOGY METHOD 02/08/2025 12:10 PM EDT [facility] MCH 27.7 26.0 - 32.0 pg LAB HEMATOLOGY METHOD 02/08/2025 12:10 PM EDT [facility] MCHC 32.8 30.7 - 35.5 g/dL LAB HEMATOLOGY METHOD 02/08/2025 12:10 PM EDT [facility] RDW 14.2 11.5 - 14.5 % LAB HEMATOLOGY METHOD 02/08/2025 12:10 PM EDT [facility] MPV 10.1 8.8 - 12.5 fL LAB HEMATOLOGY METHOD 02/08/2025 12:10 PM EDT [facility] nRBC 0.0 <=0.0 per 100 WBCs LAB HEMATOLOGY METHOD 02/08/2025 12:10 PM EDT [facility] Differential Type Automated LAB HEMATOLOGY METHOD 02/08/2025 12:10 PM EDT [facility] Neutrophils % 57 % LAB HEMATOLOGY METHOD 02/08/2025 12:10 PM EDT [facility] Lymphocytes % 28 % LAB HEMATOLOGY METHOD 02/08/2025 12:10 PM EDT [facility] Monocytes % 13 % LAB HEMATOLOGY METHOD 02/08/2025 12:10 PM EDT [facility] Eosinophils % 2 % LAB HEMATOLOGY METHOD 02/08/2025 12:10 PM EDT [facility] Basophils % 0 % LAB HEMATOLOGY METHOD 02/08/2025 12:10 PM EDT [facility] Immature Granulocytes % 0 % LAB HEMATOLOGY METHOD 02/08/2025 12:10 PM EDT [facility] Neutrophils Absolute 3.39 1.60 - 6.10 10*3/uL LAB HEMATOLOGY METHOD 02/08/2025 12:10 PM EDT [facility] Lymphocytes Absolute 1.65 1.20 - 3.90 10*3/uL LAB HEMATOLOGY METHOD 02/08/2025 12:10 PM EDT [facility] Monocytes Absolute 0.75 0.30 - 0.90 10*3/uL LAB HEMATOLOGY METHOD 02/08/2025 12:10 PM EDT [facility] Eosinophils Absolute 0.10 0.00 - 0.50 10*3/uL LAB HEMATOLOGY METHOD 02/08/2025 12:10 PM EDT [facility] Basophils Absolute 0.02 0.00 - 0.10 10*3/uL LAB HEMATOLOGY METHOD 02/08/2025 12:10 PM EDT [facility] Immature Granulocytes Absolute 0.02 0.00 - 0.06 10*3/uL LAB HEMATOLOGY METHOD 02/08/2025 12:10 PM EDT [facility] Blood Venous blood specimen / Unknown Venipuncture / Unknown 02/08/2025 11:59 AM EDT 02/08/2025 12:07 PM EDT [facility] - 02/08/2025 12:10 PM EDT Therapeutic decision making should be based on absolute values, rather than percentages. us Jesús Delgado MD LAB BLOOD ORDERABLES Final Result [facility] [address] [place] [address] * (ABNORMAL) C-Reactive protein (02/08/2025 11:59 AM EDT) CRP, Plasma 13.6(H) <=8.0 mg/L 02/08/2025 12:30 PM EDT [facility] Blood Venous blood specimen / Unknown Venipuncture / Unknown 02/08/2025 11:59 AM EDT 02/08/2025 12:07 PM EDT Narrative [facility] - 02/08/2025 12:30 PM EDT This CRP test is appropriate for assessment of infection, systemic inflammation and/or tissue injury. To assess cardiovascular disease risk order high sensitivity CRP (CRPH). us Jesús Delgado MD LAB BLOOD ORDERABLES Final Result Performing Organization Address [facility] [address]/ZIP Co de Phone Number [facility] [address] [place] [address] * (ABNORMAL) Free Hemoglobin, Plasma (02/08/2025 11:59 AM EDT) Pathologist [facility] Free Hemoglobin, Plasma 31(H) <=10 mg/dL 02/08/2025 6:48 PM EDT [facility] Blood Venous blood specimen / Unknown Venipuncture / Unknown 02/08/2025 11:59 AM EDT 02/08/2025 12:44 PM EDT us Jesús Delgado MD LAB BLOOD ORDERABLES Final Result [facility] [address] [place] [address] * (ABNORMAL) CMP (02/08/2025 11:59 AM EDT) Glucose, Plasma 110(H) 74 - 99 mg/dL 02/08/2025 12:30 PM EDT [facility] BUN, Plasma 14 8 - 23 mg/dL 02/08/2025 12:30 PM EDT [facility] Creatinine, Plasma 0.97 0.70 - 1.20 mg/dL 02/08/2025 12:30 PM EDT [facility] BUN/Creatinine Ratio 14 02/08/2025 12:30 PM EDT [facility] Sodium, Plasma 138 136 - 145 mmol/L 02/08/2025 12:30 PM EDT [facility] Potassium, Plasma 3.8 3.6 - 4.9 mmol/L 02/08/2025 12:30 PM EDT [facility] Chloride, Plasma 100 97 - 107 mmol/L 02/08/2025 12:30 PM EDT [facility] CO2, Plasma 27 22 - 29 mmol/L 02/08/2025 12:30 PM EDT [facility] Anion Gap 11 6 - 16 mmol/L 02/08/2025 12:30 PM EDT [facility] Total Calcium, Plasma 9.2 8.9 - 10.2 mg/dL 02/08/2025 12:30 PM EDT [facility] Total Protein 7.3 6.3 - 7.9 g/dL 02/08/2025 12:30 PM EDT [facility] Albumin, Plasma 4.5 3.5 - 5.2 g/dL 02/08/2025 12:30 PM EDT [facility] AST, Plasma 32 10 - 50 U/L 02/08/2025 12:30 PM EDT [facility] ALT, Plasma 35 10 - 50 U/L 02/08/2025 12:30 PM EDT [facility] Alkaline Phosphatase, Plasma 96 40 - 115 U/L 02/08/2025 12:30 PM EDT [facility] Total Bilirubin, Plasma 0.5 0.2 - 1.1 mg/dL 02/08/2025 12:30 PM EDT [facility] eGFRcr 88.3 mL/min/1.7 3m*2 02/08/2025 12:30 PM EDT [facility] Comment:Reported eGFRcr in m L/min/1.73m2 is based the CKD-EPI 2020 equation that does not use a race coefficient. Blood Venous blood specimen / Unknown Venipuncture / Unknown 02/08/2025 11:59 AM EDT 02/08/2025 12:07 PM EDT us Jesús Delgado MD LAB BLOOD ORDERABLES Final Result [facility] [address] [place] [address] * [facility] ED POCUS PROCDOC (02/08/2025 11:24 AM EDT) [...] MD IN CLINIC/BEDSIDE ORD ERABLES Final Result from Last 3 Months Insurance [facility] Care Teams [employer] Anchor Relationship Specialty Start Date End Date Colin Caldera MD [address] [facility] [address] [place] [address] [facility] - General 12/27/20
--- OUTSIDE RECORDS SUMMARY | 2025-02-16 06:26 | XMS_ITS | Data Portability ---
Author Organization [facility] WOLFGANG Garcia CHANHASSEN CLOSED Address [address] [place] [address] Care Team Providers Care Label Maker Name Role Phone GRICEL WOLFE Primary Care Provider Assessment No assessment recorded. Plan of Treatment Reminders Order Date Submit Date Provider Last Modified By Organization Details Last Modified Time Details Appointments None recorded. Lab urinalysis panel, auto [address] [facility], [address] [place] [address], [address], [place], [address], 3 16:04:35 PSA, total, serum or plasma [address] [facility], [address] [place] [address], [address], 3 16:04:35 testosteron e, total, serum [address] [facility], [address] [place] [address], [address], 3 16:04:35 testosteron e, free, serum [address] [facility], [address] [place] [address], [address], 3 16:04:35 urinalysis panel, auto [address] [facility], [address], [address], [place], [address], 2 21:15:41 urinalysis panel, auto 2021 022 [email or web address] [facility], [address], [address], [place], [address], 2 16:48:38 urinalysis panel, auto 2020 021 [email or web address] [facility], [address], [address], [place], [address], 1 23:32:27 PSA, serum or plasma 2020 021 [email or web address] [facility], [address], [address], [place], [address], 1 23:32:27 testosteron e, free + total, serum 2020 021 [email or web address] [facility], [address] [place] [address], [address], 1 23:32:27 CBC w/ auto diff 2020 021 [email or web address] [facility], [address] [place] [address], [address], 1 17:52:13 Referral None recorded. Procedures None recorded. Surgeries None recorded. Imaging None recorded. Medication Orders tamsulosin 0.4 mg capsule 2022 023 [facility], [address], [place], [address], 3 11:51:41 Depo-Testos terone 200 mg/mL intramuscul ar oil 2022 023 [facility], [address], [place], [address], 3 11:50:36 tamsulosin 0.4 mg capsule 2021 022 [facility], [address], [place], [address], 2 21:15:50 Depo-Testos terone 200 mg/mL intramuscul ar oil 2021 022 [email or web address] Not available 2 16:23:09 tamsulosin 0.4 mg capsule 2021 022 [facility], [address], [place], [address], 2 16:48:49 tamsulosin 0.4 mg capsule 2020 021 [facility], [address], [place], [address], 1 07:09:20 testosteron e cypionate 200 mg/mL intramuscul ar oil 2020 021 [facility], [address], [place], [address], 1 07:08:47 Patient TargetsNo targets recorded. Patient Instructions Encounter Date Encounter Id Patient Instructions Last Modified By Organization Details Last Modified Time 09/04/2020 [id number] hypogonadism: care instructions [email or web address] Not available 09/05/2020 20:50:31 08/26/2021 [id number] learning about healthy weight [email or web address] Not available 08/26/2021 16:48:38 Reason for Referral None Reported. Results Created Date Observation Date Name Description Value Unit Range Abnormal Flag Note LastModifiedBy Organization Detail LastModifiedTime 03/25/2003/25/2021 urina lysis panel , auto Unknown Analyte Clean Catch Not Available [facility] [address], [place], [address], 03/25/2021 16:42:42 03/25/2003/25/2021 urina lysis panel , auto Unknown Analyte Yellow Not Available [facility] [address], [place], [address], 03/25/2021 16:42:42 03/25/2003/25/2021 urina lysis panel , auto Unknown Analyte Clear Not Available [facility] [address], [place], [address], 03/25/2021 16:42:42 03/25/2003/25/2021 urina lysis panel , auto Unknown Analyte 1.020 Not Available [facility] [address], [place], [address], 03/25/2021 16:42:42 03/25/2003/25/2021 urina lysis panel , auto Unknown Analyte 1.003- 1.035 Not Available [facility] [address], [place], [address], 03/25/2021 16:42:42 03/25/2003/25/2021 urina lysis panel , auto Unknown Analyte 5.0 Not Available [facility] [address], [place], [address], 03/25/2021 16:42:42 03/25/2003/25/2021 urina lysis panel , auto Unknown Analyte 5.0-8. 0 Not Available [facility] [address], [place], [address], 03/25/2021 16:42:42 03/25/20 21 03/25/2021 urina lysis panel , auto Unknown Analyte Negati ve Not Available [facility] [address], [place], [address], 03/25/2021 16:42:42 03/25/20 21 03/25/2021 urina lysis panel , auto Unknown Analyte Negati ve Not Available [facility] [address], [place], [address], 03/25/2021 16:42:42 03/25/20 21 03/25/2021 urina lysis panel , auto Unknown Analyte Negati ve Not Available [facility] [address], [place], [address], 03/25/2021 16:42:42 03/25/20 21 03/25/2021 urina lysis panel , auto Unknown Analyte Negati ve Not Available [facility] [address], [place], [address], 03/25/2021 16:42:42 03/25/20 21 03/25/2021 urina lysis panel , auto Unknown Analyte Negati ve Not Available [facility] [address], [place], [address], 03/25/2021 16:42:42 03/25/20 21 03/25/2021 urina lysis panel , auto Unknown Analyte Negati ve Not Available [facility] [address], [place], [address], 03/25/2021 16:42:42 03/25/20 21 03/25/2021 urina lysis panel , auto Unknown Analyte Normal Not Available [facility] [address], [place], [address], 03/25/2021 16:42:42 03/25/20 21 03/25/2021 urina lysis panel , auto Unknown Analyte Normal Not Available [facility] [address], [place], [address], 03/25/2021 16:42:42 03/25/2003/25/2021 urina lysis panel , auto Unknown Analyte 15 mg/dl (Sm) Not Available [facility] [address], [place], [address], 03/25/2021 16:42:42 03/25/2003/25/2021 urina lysis panel , auto Unknown Analyte Negati ve Not Available [facility] [address], [place], [address], 03/25/2021 16:42:42 03/25/20 21 03/25/2021 urina lysis panel , auto Unknown Analyte Normal Not Available [facility] [address], [place], [address], 03/25/2021 16:42:42 03/25/20 21 03/25/2021 urina lysis panel , auto Unknown Analyte Normal 1 mg/dl Not Available [facility] [address], [place], [address], 03/25/2021 16:42:42 03/25/20 21 03/25/2021 urina lysis panel , auto Unknown Analyte Negati ve Not Available [facility] [address] [facility] [address], [place], [address], 03/25/2021 16:42:42 03/25/20 21 03/25/2021 urina lysis panel , auto Unknown Analyte Negati ve Not Available [facility] [address] [facility] [address], [place], [address], 03/25/2021 16:42:42 03/25/2003/25/2021 urina lysis panel , auto Unknown Analyte Negati ve Not Available [facility] [address] [place] [address] [address], [place], [address], 03/25/2021 16:42:42 03/25/2003/25/2021 urina lysis panel , auto Unknown Analyte Negati ve Not Available [facility] [address] [place] [address] [address], [place], [address], 03/25/2021 16:42:42 03/25/20 21 03/25/2021 TESTO STERO NE,TO NORIS/F REE testosterone , total 726 NG/dL 193-74 0 normal Refer ence range is for age 50 years and over. Not Available [facility] [address] [place], [address], 03/28/2021 10:56:26 03/25/20 21 03/28/2021 TESTO STERO [...] PERFO RMED AT: [facility] [address] [place] [address] Julian HEBERT Not Available [facility] [address] [place] [address], [address], 03/28/2021 10:56:26 03/25/20 21 03/25/2021 PSA, serum or plasm a PSA 0.77 NG/mL 0.0 - 4.0 Not Available [facility] [address], [place], [address], 03/25/2021 17:03:08 08/26/19 22 08/26/2021 urina lysis panel , auto Unknown Analyte Clean Catch Not Available [facility] [address], [place], [address], 08/26/2021 16:45:20 08/26/19 22 08/26/2021 urina lysis panel , auto Unknown Analyte Yellow Not Available [facility] [address], [address], 08/26/2021 16:45:20 08/26/19 22 08/26/2021 urina lysis panel , auto Unknown Analyte Clear Not Available [facility] [address], [place], [address], 08/26/2021 16:45:20 08/26/19 22 08/26/2021 urina lysis panel , auto Unknown Analyte 1.020 Not Available [facility] [address], [place], [address], 08/26/2021 16:45:20 08/26/19 22 08/26/2021 urina lysis panel , auto Unknown Analyte 5.0 Not Available [facility] [address], [place], [address], 08/26/2021 16:45:20 08/26/19 22 08/26/2021 urina lysis panel , auto Unknown Analyte Negati ve Not Available [facility] [address], [place], [address], 08/26/2021 16:45:20 08/26/19 22 08/26/2021 urina lysis panel , auto Unknown Analyte Negati ve Not Available [facility] [address], [place], [address], 08/26/2021 16:45:20 08/26/19 22 08/26/2021 urina lysis panel , auto Unknown Analyte Negati ve Not Available [facility] [address], [place], [address], 08/26/2021 16:45:20 08/26/19 22 08/26/2021 urina lysis panel , auto Unknown Analyte Normal Not Available [facility] [address], [place], [address], 08/26/2021 16:45:20 08/26/19 22 08/26/2021 urina lysis panel , auto Unknown Analyte Negati ve Not Available [facility] [address], [place], [address], 08/26/2021 16:45:20 08/26/19 22 08/26/2021 urina lysis panel , auto Unknown Analyte Normal Not Available [facility] [address], [place], [address], 08/26/2021 16:45:20 08/26/19 22 08/26/2021 urina lysis panel , auto Unknown Analyte Negati ve Not Available [facility] [address], [place], [address], 08/26/2021 16:45:20 08/26/19 22 08/26/2021 urina lysis panel , auto Unknown Analyte Negati ve Not Available [facility] [address], [place], [address], 08/26/2021 16:45:20 09/23/19 22 09/23/2021 urina lysis panel , auto Unknown Analyte Clean Catch Not Available [facility] [address], [place], [address], 09/23/2021 16:24:26 09/23/19 22 09/23/2021 urina lysis panel , auto Unknown Analyte Yellow Not Available [facility] [address], [place], [address], 09/23/2021 16:24:26 09/23/19 22 09/23/2021 urina lysis panel , auto Unknown Analyte Clear Not Available [facility] [address], [place], [address], 09/23/2021 16:24:26 09/23/19 22 09/23/2021 urina lysis panel , auto Unknown Analyte 1.015 Not Available [facility] [address], [place], [address], 09/23/2021 16:24:26 09/23/19 22 09/23/2021 urina lysis panel , auto Unknown Analyte 5.0 Not Available [facility] [address], [place], [address], 09/23/2021 16:24:26 09/23/19 22 09/23/2021 urina lysis panel , auto Unknown Analyte Negati ve Not Available [facility] [address], [place], [address], 09/23/2021 16:24:26 09/23/19 22 09/23/2021 urina lysis panel , auto Unknown Analyte Negati ve Not Available [facility] [address], [place], [address], 09/23/2021 16:24:26 09/23/19 22 09/23/2021 urina lysis panel , auto Unknown Analyte Negati ve Not Available [facility] [address], [place], [address], 09/23/2021 16:24:26 09/23/19 22 09/23/2021 urina lysis panel , auto Unknown Analyte Normal Not Available [facility] [address], [place], [address], 09/23/2021 16:24:26 09/23/19 22 09/23/2021 urina lysis panel , auto Unknown Analyte Negati ve Not Available [facility] [address], [place], [address], 09/23/2021 16:24:26 09/23/19 22 09/23/2021 urina lysis panel , auto Unknown Analyte Normal Not Available [facility] [address], [place], [address], 09/23/2021 16:24:26 09/23/19 22 09/23/2021 urina lysis panel , auto Unknown Analyte Negati ve Not Available [facility] [address], [place], [address], 09/23/2021 16:24:26 09/23/19 22 09/23/2021 urina lysis panel , auto Unknown Analyte Negati ve Not Available [facility] [address], [place], [address], 09/23/2021 16:24:26 03/09/20 23 03/09/2023 PROST ATE SPECI FIC AG prostate specific Ag 1.050 NG/mL 0.000- 4.100 normal Test metho d is based on WHO-s tanda rdize d calib ratio n using the Akbar Kaveh E801 nimisha zer. PSA resul ts by diffe rent test proce dures canno t be direc tly matias red with one anoth er. . Not Available [facility] [address] [place], [address], 03/09/2023 19:20:23 03/09/20 23 03/09/2023 TESTO STERO NE, TOTAL testosterone , total 587 NG/dL 193-74 0 normal Refer ence range is for age 50 years and over. Not Available [facility] [address] [place], [address], 03/09/2023 19:20:25 03/09/2003/13/2023 TESTO STERO NE, FREE testosterone , free [...] purpo ses. MDF med fusio n [address] [facility] [address] [facility] [address] [phone] Demetrio oliveira MD Not Available [facility] [address] [place], [address], 03/13/2023 02:45:20 03/09/2003/09/2023 urina lysis panel , auto Unknown Analyte Clean Catch Not Available [facility] [address] [facility] [address], [place], [address], 03/09/2023 16:54:11 03/09/20 23 03/09/2023 urina lysis panel , auto Unknown Analyte Yellow Not Available [facility] [address] [address], [place], [address], 03/09/2023 16:54:11 03/09/20 23 03/09/2023 urina lysis panel , auto Unknown Analyte Slight ly Hazy Not Available [facility] [address], [place], [address], 03/09/2023 16:54:11 03/09/20 23 03/09/2023 urina lysis panel , auto Unknown Analyte 1.025 Not Available [facility] [address], [place], [address], 03/09/2023 16:54:11 03/09/20 23 03/09/2023 urina lysis panel , auto Unknown Analyte 1.003- 1.035 Not Available [facility] [address] [address], [place], [address], 03/09/2023 16:54:11 03/09/20 23 03/09/2023 urina lysis panel , auto Unknown Analyte 5.0 Not Available [facility] [address] [address], [place], [address], 03/09/2023 16:54:11 03/09/20 23 03/09/2023 urina lysis panel , auto Unknown Analyte 5.0-8. 0 Not Available [facility] [address] [address], [place], [address], 03/09/2023 16:54:11 03/09/20 23 03/09/2023 urina lysis panel , auto Unknown Analyte Negati ve Not Available [facility] [address], [place], [address], 03/09/2023 16:54:11 03/09/20 23 03/09/2023 urina lysis panel , auto Unknown Analyte Negati ve Not Available [facility] [address], [place], [address], 03/09/2023 16:54:11 03/09/20 23 03/09/2023 urina lysis panel , auto Unknown Analyte Negati ve Not Available [facility] [address], [place], [address], 03/09/2023 16:54:11 03/09/20 23 03/09/2023 urina lysis panel , auto Unknown Analyte Negati ve Not Available [facility] [address], [place], [address], 03/09/2023 16:54:11 03/09/20 23 03/09/2023 urina lysis panel , auto Unknown Analyte Trace Not Available [facility] [address], [place], [address], 03/09/2023 16:54:11 03/09/20 23 03/09/2023 urina lysis panel , auto Unknown Analyte Negati ve Not Available [facility] [address], [place], [address], 03/09/2023 16:54:11 03/09/20 23 03/09/2023 urina lysis panel , auto Unknown Analyte 100 mg/dl Not Available [facility] [address], [place], [address], 03/09/2023 16:54:11 03/09/20 23 03/09/2023 urina lysis panel , auto Unknown Analyte Normal Not Available [facility] [address] [address], [place], [address], 03/09/2023 16:54:11 03/09/20 23 03/09/2023 urina lysis panel , auto Unknown Analyte 15 mg/dl (Sm) Not Available [facility] [address], [place], [address], 03/09/2023 16:54:11 03/09/20 23 03/09/2023 urina lysis panel , auto Unknown Analyte Negati ve Not Available [facility] [address] [address], [place], [address], 03/09/2023 16:54:11 03/09/20 23 03/09/2023 urina lysis panel , auto Unknown Analyte Normal Not Available [facility] [address], [place], [address], 03/09/2023 16:54:11 03/09/20 23 03/09/2023 urina lysis panel , auto Unknown Analyte Normal 1 mg/dl Not Available [facility] [address], [place], [address], 03/09/2023 16:54:11 03/09/20 23 03/09/2023 urina lysis panel , auto Unknown Analyte Negati ve Not Available [facility] [address], [place], [address], 03/09/2023 16:54:11 03/09/20 23 03/09/2023 urina lysis panel , auto Unknown Analyte Negati ve Not Available [facility] [address], [place], [address], 03/09/2023 16:54:11 03/09/20 23 03/09/2023 urina lysis panel , auto Unknown Analyte Trace Not Available [facility] [address] [place] [address] [address], [place], [address], 03/09/2023 16:54:11 03/09/20 23 03/09/2023 urina lysis panel , auto Unknown Analyte Negati ve Not Available [facility] [address], [place], [address], 03/09/2023 16:54:11 Result Notes None recorded. Problems No Known Problems Medical Equipment None Reported. Allergies No known drug allergies Medications Name Sig Start Date Stop Date Status Note LastModified by Organization Details LastModified Time Prescription - Prior Authorizatio n Request active Not Available Not Available No t Available Compound Testosterone Cypionate (200 mg/mL injection in sesame oil #2.5 mL) active Not Available Not Available Not Available syringe with needle 3 mL 22 [...] Available No t Available [facility] Regular [place] 22 gauge x 1 1/2 USE DIRECTED [...] Not Available Not Available [facility] Regular [place] 18 gauge x 1 1/2 USE DIRECTED active Not Available Not Available No t Available cholecalcife rol (vit D3)(bulk) active Not Available Not Available No t Available Vitals Date Recorded Body height Body mass index (BMI) Body weight Provider Name and Address Organization Details Last Updated DateTime 08/26/2021 177.8 cm 36.2 kg/m2 240378.28 g [facility][note 3] 08/26/2021 16:45:02 Date Recorded Body height Body mass index (BMI) Body weight Provider Name and Address Organization Details Last Updated DateTime 09/04/2020 177.8 cm 37.6 kg/m2 669586.2 [facility] 09/04/2020 13:06:59 Date Recorded Body height Body mass index (BMI) Body weight Provider Name and Address Organization Details Last Updated DateTime 09/23/2021 177.8 cm 36.2 kg/m2 757617.28 [facility] 09/23/2021 16:24:00 Date Recorded Body height Body mass index (BMI) Body weight Provider Name and Address Organization Details Last Updated DateTime 03/09/2023 177.8 cm 38.2 kg/m2 520472.57 g Andres Murphy [facility] 03/09/2023 16:53:40 Date Recorded Body height Body mass index (BMI) Body weight Provider Name and Address Organization Details Last Updated DateTime 03/25/2021 177.8 cm 37.6 kg/m2 229785.2 Dorethawilmer Myers [facility] 03/25/2021 16:42:14 Social History Question Answer Notes LastModified by Organizat ion Details LastModified Time Tobacco Smoking Status Never Smoker Venecia Coppola carlos, [facility] 10/18/2019 15:07:12 How Much Tobacco Do You Chew? None Information not available 10/18/2019 Marital Status [email or web address] Informatio n not available 10/18/2019 What Is Your Relationship Status? Information not available 09/23/2021 How Much Tobacco Do You Smoke? No [email or web address] Information not available 10/18/2019 Has Tobacco Cessation Counseling Been Provided? No [email or web address] Information not available 09/23/2021 Have You Recently Traveled Abroad? No [email or web address] Information not available 09/23/2021 Sex: Unknown Functional Status Question Answer Note LastModified by Organizat ion Details LastModified Time Do you use any illicit or recreational drugs? No [email or web address] Information not available 09/23/2021 Do you or have you ever used any other forms of tobacco or nicotine? No [email or web address] Information not available 09/23/2021 What is your level of alcohol consumption? None [email or web address] Information not available 10/18/2019 Mental Status None recorded. Family History Nothing Reported. Medical History Condition Response Hypertension Y Past Encounters Encounter ID Performer Location Encounter Start Date Encounter Closed Date Diagnosis/Indication Diagnosis SNOMED-CT Code Diagnosis ICD10 Code Diagnosis Note [id number] MD EMILIA POOLE [facility] [address] [place] [phone] 10/18/2019 14:49:45 10/18/2019 15:27:16 Male hypogonadism 99780693 E29.1 follow up 6 monthsplan as above Benign pro static hyperplasia 949167999 N40.0 observe [id number] MD EMILIA [facility] [address] [place] [id number] 06/17/2020 15:25:01 06/17/2020 16:52:16 Benign prostatic hyperplasia with outflow obstruction 563843390 N40.1 this PSA today was 0.97. He will follow-up in 6 weeks regarding his obstructiv e urinary symptoms. Male hypogonadism 147488 06 E29.1 as above [id number] LETY GRACIA MD [facility] [address] [address] 09/04/2020 12:55:27 09/04/2020 13:41:47 Benign prostatic hyperplasia with outflow obstruction 800589854 N40.1 Continue tamsulosin as above Male hypogonadism 463461 06 E29.1 as above [id number] LETY GARCIA MD [facility] [address] [id number] 03/25/2021 16:26:12 03/26/2021 12:20:40 Benign prostatic hyperplasia with outflow obstruction 179004196 N40.1 Continue tamsulosin Testicular hypofunction 664889365 E29.1 Follow-up 6 months. We will contact him if his levels are unacceptab le. Male hypogonadism 631279 06 E29.1 as above [id number] LETY GARCIA MD [facility] [address] [id number] 08/26/2021 16:04:58 08/26/2021 16:48:51 Benign prostatic hyperplasia with outflow obstruction 813832930 N40.1 Continue tamsulosin and increase to twice a day, he will follow up in 1 month Male hypogonadism 576902 06 E29.1 as above [id number] LETY GARCIA MD [facility] [address] [place] [id number] 09/23/2021 16:01:04 09/23/2021 16:41:38 Benign prostatic hyperplasia with outflow obstruction 828646212 N40.1 Continue tamsulosin Twice a day Male hypogonadism 028050 06 E29.1 as above [id number] LETY GARCIA MD [facility] [address] [id number] 03/09/2023 16:41:30 03/29/2023 04:14:00 Testicular hypofunction 651313588 E29.1 Follow-up 6 months. We will contact him if his levels are unacceptab le. Benign pro static hyperplasia with outflow obstruction 713294768 N40.1 Health Concerns Section Related Observation LastModified by Organization Detai ls LastModified Time None Recorded Concern Status LastModified by Organization Details LastModified Time None Recorded Advance Directives Directive None Recorded Payers Insurance Date Sequence Insurance Name Policy Number Policy Muniz Covered Member ID Muniz Member ID Guarantor Name 05/02/2024 1 [place] ([place]) [id number] A Myles Zuniga [id number] Myles Zuniga Notes Date Note Type [...] 100 mg each week. [facility] [place], [address], [facility] 09/05/2020 20:57:15 03/25/2021 text/html Patient is [...] on diuretics as well. LETY GARCIA MD [facility] [place], [address], [facility] 03/26/2021 07:10:16 08/26/2021 text/html patient is [...] will consider cystoscopy. LETY GARCIA MD [address] [place] [address], [phone], [facility] 08/26/2021 16:49:17 09/23/2021 text/html Patient is here [...] refill of his testosterone. LETY GARCIA MD [facility] [place], [address], [facility] 10/05/2021 21:16:25 03/09/2023 text/html Patient is [...] cystoscopy for further evaluation. LETY GARCIA MD [facility] [place], [address], [facility] 03/28/2023 11:52:12
--- OUTSIDE RECORDS SUMMARY | 2025-02-16 06:27 | XMS_ITS | Patient Health Record ---
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 jesus Dumont.al. JCEM 2017,102;0195-9747. PMID: [id number]. Performed at: - [facility] [id number] [employer] Solution Manager Consultant: Ramy Bonilla PhD, Phone: [phone] H-Lipid Panel Reviewed date:10/30/2024 10:47:01 AM Interpretation: Performing Lab: Notes/Report: Patient Fasting? Y TRIG 139 30-150 mg/dl CHOL 130 140-200 mg/dl DLDL 63.11 100-129 mg/dL VLDL 28 0-40 mg/dL HDL 37 40-60 mg/dl CHLHDL 3.5 1-3.5 H-CMP Reviewed date:10/30/2024 10:47:01 AM Interpretation: Performing Lab: Notes/Report: NA 139 136-145 mmol/L K 4.1 3.5-5.1 mmoL/L CL 105 98-107 mmol/L CO2 28 22.0-30.0 mmol/L GAP 10.1 5-15 mEq/L BUN 15 9-20 mg/dl CREATT 0.90 0.66-1.25 mg/dl GFRAA 103 >60 ML/MIN EGFR 86 >60 ml/min GLU 117 74-100 mg/dl CA 8.8 8.4-10.2 mg/dl BILIT 0.4 0.2-1.3 mg/dl AST 22 17-59 U/L ALT 24 12-78 U/L TP 6.4 6.3-8.2 g/dl ALB 4.1 3.5-5.0 g/dl GLOB 2.3 1.3-3.2 g/dL AGRATIO 1.8 1.1-1.8 ALP 65 38-126 U/L H-Glycohemoglobin A1C Reviewed date:10/30/2024 10:47:01 AM Interpretation: Performing Lab: Notes/Report: HGBA1C 6.0 4.0-6.0 % < 6% Non-Diabetic Level < 7% Controlled Diabetic Level > 8% Poorly Controlled Diabetic Level Reason For Referral No Information Medications Medication SIG (Take, Route, Frequency, Duration) Notes Start Date End Date Status Tamsulosin HCl 0.4 MG 1 cap(s) orally once a day Active Nabumetone 750 MG Take 2 tablets by mo uth once daily; Duration: 90 Active FLUoxetine HCl 40 MG 1 cap(s) Orally Onc e a day; Duration: 90 days Active Fiber Choice 1.5 GM as directed Orally Active Bumetanide 2 MG 1 tablet Orally Once a day; Duration: 30 day(s) Active Fish Oil 1000 MG 1 capsule Orally Onc e a day; Duration: 30 day(s) Active Valsartan 160 MG 1 tablet Once a day Active Testosterone Cypionate 100 MG/ML as directed intramuscularly Active Bisoprolol Fumarate 10 MG 1 tab(s) orally once a day Active Valsartan 160 MG 1 tablet Once a day; Duration: 90 days Active Vitamin D3 25 MCG (1000 UT) 1 tab(s) orally once a day 01/06/2012 A ctive Vitamin D3 50 MCG (2000 UT) 2 tablet Orally Once a day 03/05/2023 A ctive Omeprazole 40 MG Take 1 capsule by [facility] once daily; Duration: 90 Active clonazePAM 1 MG 1 tablet Orally At Bed Time 2024 Active busPIRone HCl 10 MG TAKE 1 & 1/2 (ONE & ONE-HALF) TABLETS BY MOUTH TWICE DAILY; Duration: 90 Active Rosuvastatin Calcium 10 MG Take 1 tablet by mouth once daily; Duration: 90 Active Immunizations Vaccine Route Administration Date Status Comme nts Tetanus Tdap-Adacel (over 7yrs) IM Intramuscular 03/01/2020 Administered Fluzone Quad (6months&older) Unknown 05/14/2021 Administered Fluzone PF Quad (6-35 months) Unknown 06/19/2018 Administered Fluzone PF Quad (6-35 months) Unknown 07/08/2019 Administered COVID 19 Pfizer Unknown 11/22/2020 Administered Problems Problem Type SNOMED Code ICD Code Onset Dates Problem Status W/U Status Risk Notes Problem Gastroesophageal reflux disease (599192588) GERD (gastroesophageal reflux disease) (K21.9) Active confirmed Problem Hyperglycemia (08757231) Hyperglycemia (R73.9) Active confirmed Problem Hypertension (25493787) HTN (hypertension) (I10) Active confirmed Problem Vitamin D deficiency (22997919) Vitamin D deficiency (E55.9) Active confirmed Problem Benign prostatic hyperplasia (482913459) BPH (benign prostatic hyperplasia) (N40.0) Active confirmed Problem Primary generalised osteoarthritis (263683560) Primary generalized (osteo)arthritis (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) Active confirmed Problem Mixed hyperlipidemia (665282504) Mixed hyperlipidemia (E78.2) Active confirmed Problem REM sleep behavior disorder (120639587) REM sleep behavior disorder (G47.52) Active confirmed Problem Left ventricular hypertrophy (26800531) Left ventricular hypertrophy (I51.7) Active confirmed Problem Depression (556755533) Depression (F32.9) Active confirmed Problem Obstructive sleep apnea syndrome (77786617) JHOAN (obstructive sleep apnea) (G47.33) Active confirmed Problem Obese class II (632852569741025) BMI 37.0-37.9, adult (Z68.37) Active confirmed Problem Dyslipidemia (139870073) Dyslipidemia (E78.5) Active confirmed Problem Seasonal allergic rhinitis (188052630) Allergic rhinitis, seasonal (J30.2) Active confirmed Problem Erectile dysfunction (disorder) (575456630) ED (erectile dysfunction) (N52.9) Active confirmed Problem Hypotestosteronism (0262211335453) Hypotestosteronism (E29.1) Active confirmed Vital Signs Heart Rate 100 /min 10/10/2024 Blood pressure diastolic 84 mm Hg 10/10/2024 Height 70.50 in 10/10/2024 Blood pressure systolic 130 mm Hg 10/10/2024 Weight 257.2 lbs 10/10/2024 BMI 36.38 kg/m2 10/10/2024 Encounters Encounter Location Date Provider Diagnosis [facility] [address] [place] [phone] 04/04/2024 R Yomi Werner Hyperglycemia R73.9 ; REM sleep behavior 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 ; HTN (hypertension) I10 ; GERD (gastroesophageal reflux disease) K21.9 ; Hypotestosteronism E29.1 ; Dyslipidemia E78.5 and JHOAN (obstructive sleep apnea) G47.33 [facility] [address] [place] [facility] [address] [place] [id number] 10/10/2024 R Yomi Werner Hyperglycemia R73.9 ; REM sleep behavior 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 ; HTN (hypertension) I10 ; GERD (gastroesophageal reflux disease) K21.9 ; Hypotestosteronism E29.1 ; Dyslipidemia E78.5 ; JHOAN (obstructive sleep apnea) G47.33 ; BPH (benign prostatic hyperplasia) N40.0 and Depression F32.9 [facility] [address] [place], [place] [id number] 02/28/2024 R Yomi Werner [facility] [address] [place], [place] [id number] 03/30/2024 R Yomi Werner [facility] [address] [place], [place] [id number] 04/10/2024 R Yomi Werner [facility] [address] [place], [place] [id number] 04/21/2024 R Yomi Werner [facility] [address] [place], [place] [id number] 05/02/2024 R Yomi Werner REM sleep behavior 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 [facility] [address] [place], [place] [id number] 05/31/2024 R Yomi Werner REM sleep behavior 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 [facility] [address] [place], [place] [id number] 08/29/2024 R Yomi Werner REM sleep behavior 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 [facility] [address] [place], [place] [id number] 10/11/2024 R Yomi Werner REM sleep behavior 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 [facility] [address] [place], [place] [id number] 10/30/2024 R Yomi Werner Assessments Encounter Date Diagnosis (ICD Code) Assessment Notes Treatment Notes Treatment Clinical Notes Section Notes 05/31/2024 REM sleep behavior disorder (ICD-10 - G47.52) 04/04/2024 Hyperglycemia (ICD-1 0 - R73.9) 04/04/2024 REM sleep behavior disorder (ICD-10 - G47.52) 10/10/2024 Hyperglycemia (ICD-1 0 - R73.9) 10/10/2024 REM sleep behavior disorder (ICD-10 - G47.52) 08/29/2024 REM sleep behavior disorder (ICD-10 - G47.52) 05/02/2024 REM sleep behavior disorder (ICD-10 - G47.52) 10/11/2024 REM sleep behavior disorder (ICD-10 - G47.52) 10/10/2024 HTN (hypertension) (ICD-10 - I10) 04/04/2024 HTN (hypertension) (ICD-10 - I10) 04/04/2024 GERD (gastroesophage al reflux disease) (ICD-10 - K21.9) 10/10/2024 GERD (gastroesophage al reflux disease) (ICD-10 - K21.9) 10/10/2024 Hypotestosteronism (ICD-10 - E29.1) 04/04/2024 Hypotestosteronism (ICD-10 - E29.1) 04/04/2024 Dyslipidemia (ICD-10 - E78.5) 10/10/2024 Dyslipidemia (ICD-10 - E78.5) 10/10/2024 JHOAN (obstructive sle ep apnea) (ICD-10 - G47.33) 04/04/2024 JHOAN (obstructive sle ep apnea) (ICD-10 - G47.33) 10/10/2024 BPH (benign prostati c hyperplasia) (ICD-10 - N40.0) 10/10/2024 Depression (ICD-10 - F32.9) Plan Of Treatment Next Appt Details Provider Name:Parveen Tovar, 04/10/2025 10:00:00 AM, [address] [facility], [address], [place], [place], [id number], Insurance Providers Payer Name Payer Address Payer Phone Subscriber Number Group Number Insured Name Patient Relationship to Insured Coverage Start Date Coverage End Date [facility] [address] [place] [address] [phone] [id number] SUMMERS Self - patient is the insured Medications Administered Medication Instructions Date of Administration Dosage Notes Dexamethasone 10/07/2005 1 mL Dexamethasone 07/27/2019 1 mL Medical (General) History Medical History History ICD Code as child had some kind of kidney disease Hypertension allergic rhinitis low back pain Testosterone deficiency hemorrhoids Depression Abnormal Stress Test 2013 GERD JHOAN BPH - Dr. Esparza Surgical History Surgery Date(Month/Year) hemorrhoidectomy Colonoscopy Hernia Repair 03/16/2022 Knee Surgery Left Meniscus 12/01/22 Hospitalization History Reason Date(Month/Year)
[2025-02-16 06:29] VITALS: BP 142/100; PULSE 71; RESP 16; TEMP 36.7; O2SAT 98; BMI 36.6
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
--- NOTE | 2025-02-16 06:47 | HMH.EDGENADL ---
Discharge Plan Disposition Patient Disposition: Home, Self-Care Prescriptions Prescriptions: No Action melatonin 10 mg capsule 20 mg PO HS clonazepam 1 mg tablet 1 mg PO HS Patient Comments: TAKE 1 TABLET BY MOUTH AT BEDTIME valsartan 160 mg tablet 160 mg PO DAILY Qty: 90 3RF bumetanide 2 mg tablet 2 mg PO DAILY Qty: 90 3RF testosterone cypionate [Depo-Testosterone] 200 mg/mL oil 100 mg SQ WEEKLY 90 Days Qty: 10 0RF Rx Instructions: Administer 0.35 ml weekly SQ tamsulosin [Flomax] 0.4 mg capsule 0.4 mg PO DAILY 90 Days Qty: 90 1RF fluticasone propionate [Flonase Allergy Relief] 50 mcg/actuation spray,suspension 1 spray intranasal DAILY Qty: 16 2RF Rx Instructions: administer into each nostril guaifenesin 400 mg tablet 400 mg PO Q4H PRN (Reason: cough) Qty: 30 1RF fluoxetine 40 mg capsule 40 mg PO DAILY Patient Comments: TAKE 1 CAPSULE BY MOUTH ONCE DAILY nabumetone 750 mg tablet 750 mg PO DAILY Patient Comments: TAKE 2 TABLETS BY MOUTH ONCE DAILY omeprazole 40 mg capsule,delayed release(DR/EC) 40 mg PO DAILY Patient Comments: TAKE 1 CAPSULE BY MOUTH ONCE DAILY montelukast 10 mg tablet 10 mg PO DAILY rosuvastatin 10 mg tablet 10 mg PO DAILY Patient Comments: TAKE 1 TABLET BY MOUTH ONCE DAILY buspirone 10 mg tablet 10 mg PO BID Referrals Follow up/Referrals: Provider,Referral, [Primary Care Provider, Medical] - See instructions Activity Restrictions/Add. Instructions Additional Instructions/Restrictions: At this time it was felt you are safe to be discharged home. If new or worsening symptoms please do not hesitate to return the emergency department. Please take your antibiotics as prescribed and do not blow your nose or drink through a straw, if you must sneeze sneeze through your mouth until you see them in clinic. Clinical Impressions Clinical Impression: Orbital fracture Instructions Patient Instructions: DI for Orbital Fracture Print Language Print Language: Yakut Discharge ED Provider: Haydee Blum Adult HPI <Haydee Blum MD - Last Filed: 02/16/25 07:16> General Chief complaint: Fall Stated complaint: fall, head, face injury, blurred vision Time Seen by Provider: 02/16/25 06:40 Mode of Arrival: Ambulatory Source of Information: Patient and Relative Description of Symptoms (Recalled from ER Triage Doc. by RN): pt presents to the Ed d/t sleeping disorder and fell out of bed, and hit head. pt has blood tinged left eye and bruising on face around eye. pt ambulatory but reports blurred vision with 20/30 vision in both eyes. pt concerned for facial fracture. pt states possible LOC History of Present Illness HPI narrative: 64-year-old male presents to the ER for concerns of fall striking his face. Patient reportedly has a sleeping disorder and suddenly rolled over violently falling out of bed and striking his left eye area on the nightstand. Patient reports pain/stinging in the left eye like he has a cut in it and states it is somewhat blurry because of this, however visual acuity on arrival is 20/30 in both eyes. Patient reports when he blew his nose it was even more painful so he is concerned that he may have fractured his face. Patient is unsure if he lost consciousness or not. No blood thinners. No numbness, tingling, weakness, patient presented independently ambulatory into the ER. Related Data Home Medications ?Medication ?Instructions ?Recorded ?Confirmed fluoxetine 40 mg capsule 40 mg PO DAILY 11/26/23 02/13/25 montelukast 10 mg tablet 10 mg PO DAILY 11/26/23 02/13/25 nabumetone 750 mg tablet 750 mg PO DAILY 11/26/23 02/13/25 omeprazole 40 mg capsule,delayed 40 mg PO DAILY 11/26/23 02/13/25 release rosuvastatin 10 mg tablet 10 mg PO DAILY 11/26/23 02/13/25 melatonin 10 mg capsule 20 mg PO HS 12/29/23 02/13/25 buspirone 10 mg tablet 10 mg PO BID 06/28/24 02/13/25 clonazepam 1 mg tablet 1 mg PO HS 06/28/24 02/13/25 Previous Rx's ?Medication ?Instructions ?Recorded bumetanide 2 mg tablet 2 mg PO DAILY #90 tabs 10/10/24 valsartan 160 mg tablet 160 mg PO DAILY #90 tabs 10/10/24 tamsulosin 0.4 mg capsule (Flomax) 0.4 mg PO DAILY 90 days #90 caps 01/29/25 testosterone cypionate 200 mg/mL 100 mg (0.5 mL) SQ WEEKLY 90 days 01/29/25 intramuscular oil #10 mL (Depo-Testosterone) fluticasone propionate 50 1 spray intranasal DAILY #16 grams 02/13/25 mcg/actuation nasal spray,suspension (Flonase Allergy Relief) guaifenesin 400 mg tablet 400 mg PO Q4H PRN cough #30 tabs 02/13/25 Allergies Allergy/AdvReac Type Severity Reaction Status Date / Time No Known Allergies Allergy Verified 02/13/25 14:47 PFS <Haydee Blum MD - Last Filed: 02/16/25 07:16> [facility] Disclaimer: The information contained in this section may have been updated after the patient was seen, as this information can be updated by other users. Medical History JHOAN (obstructive sleep apnea) Severe JHOAN with hypoxemia, difficulty tolerating CPAP and currently on Auto-BiPAP with symptomatic improvement but needs additional pressure support. 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 current occupational exposures/hazards: Yes caffeine: Yes Other Medical History Have you received the Flu Vaccine for this season: Yes Have you received the Pneumonia Vaccine: No <Haydee Blmu MD - Last Filed: 02/16/25 07:16> ROS Obtained: Yes Systems reviewed as appropriate & no additional complaints except as documented Per HPI Physical Exam <Haydee Blum MD - Last Filed: 02/16/25 07:16> General General appearance: alert and in no apparent distress Head Head exam: normocephalic and other (Left periorbital swelling and abrasion with tenderness and ecchymosis superior and inferior to the left orbit with no crepitus or deformity) Eye Eye exam: Present PERRL, EOMI (All extraocular movements are full, all directions are slightly uncomfortable but no direction is painful, he has no double vision, no bradycardia) and other (Left lateral scleral hemorrhage) Expanded Eye Exam Pupils: Bilateral: regular, round, reactive and size (3mm) Sclera/Conjunctival: left: hemorrhage Visual acuity (R) = 20/: 30 Visual acuity (L) = 20/: 30 With correction: No IOP (R) in mmH IOP (L) in mmH ENT ENT exam: Present mucous membranes moist Neck Neck exam: Present normal inspection and full ROM; Absent tenderness Chest Chest inspection: Present symmetric chest wall rise Respiratory Respiratory exam: Present normal lung sounds bilaterally; Absent respiratory distress, wheezes or stridor Cardiovascular Cardiovascular exam: Present regular rate and normal rhythm Abdominal Exam Abdominal exam: Present soft; Absent distention or tenderness Extremities Exam Extremities exam: Present full ROM Neurological Exam Neurological exam: Present alert and oriented X3; Absent motor sensory deficit Psychiatric Psychiatric exam: Present normal affect and normal mood Skin Skin exam: Present warm and dry Medical Decision Making <Haydee Blum MD - Last Filed: 02/16/25 07:16> Medical Records Medical records reviewed: Yes I reviewed the patient's medical records. Screening: Per USPSTF and CDC recommendations, given the prevalence of disease in our region, it is our hospital?s policy to screen for HIV and viral Hepatitis for all patients aged 18 and over and those with ongoing risk factors. MR Comment: Review of neurology note from June 2024 demonstrates patient has JHOAN unable to tolerate CPAP, currently treated with BiPAP, REM behavior disorder. Obi Inquiry Pt receiving controlled substance: No Vital Signs: 02/16/25 06:29 02/16/25 07:00 02/16/25 07:30 Temperature 98.0 F Temperature Source Oral Pulse Rate 72 68 Pulse Rate [Right Radial] 71 Respiratory Rate 16 Blood Pressure 158/99 H 163/103 H Blood Pressure [Right Arm] 142/100 H Blood Pressure Mean Blood Pressure Mean [Right Arm] 114 Blood Pressure Position [Right Arm] Sitting 02 Sat by Pulse Oximetry 98 95 97 Oxygen Delivery Method Room Air Room Air Room Air 02/16/25 08:00 Temperature Temperature Source Pulse Rate 64 Pulse Rate [Right Radial] Respiratory Rate 18 Blood Pressure 163/107 H Blood Pressure [Right Arm] Blood Pressure Mean 131 Blood Pressure Mean [Right Arm] Blood Pressure Position [Right Arm] 02 Sat by Pulse Oximetry 98 Oxygen Delivery Method Lab Data Lab Results 02/16/25 06:23: Urine Color Yellow, Urine Appearance Clear, Urine pH 5.5, Ur Specific [place] >= 1.030, Urine Protein Negative, Urine Glucose (UA) Negative, Urine Ketones Negative, Urine Blood Negative, Urine Nitrate Negative, Urine Bilirubin Negative, Urine Urobilinogen 0.2, Ur Leukocyte Esterase Negative, Urine RBC None, Urine WBC Occasional, Ur Squamous Epith Cells None, Urine Bacteria Trace, Urine Mucus Trace Orders (Tests/Meds): ED MEDICATIONS Discontinued Medications Generic Name Dose Route Start Last Admin Trade Name Freq PRN Reason Stop Dose Admin Fluorescein Sodium 1 mg 02/16/25 06:43 02/16/25 07:15 Fluorescein Sodium 1mg Strip OP 02/16/25 06:44 1 mg ONCE ONE Administration Tetracaine HCl 0 ml 02/16/25 06:43 02/16/25 07:15 Tetracaine 0.5% Opth Stacie 15ml OP 02/16/25 06:44 15 ml ONCE ONE Administration ORDERS Category Date Time Status CT cervical spine wo con Stat Cat Scan 02/16/25 06:[address] facial bones wo con Stat Cat Scan 02/16/25 06:[address] head/brain wo con Stat Cat Scan 02/16/25 06:43 Completed UA [Urinalysis and Microscopic] Stat Lab 02/16/25 06:23 Completed Medical Decision Narrative: In summary, this 64-year-old male with history of REM sleep disorder, JHOAN, hypertension presents to the emergency department today with left eye and periorbital pain after fall. On initial evaluation patient is hemodynamically stable, afebrile, GCS 15, independently ambulatory into the ER, patient has no neurologic deficits, he does have left periorbital swelling, tenderness, ecchymosis, abrasion, also left scleral hemorrhage but pupils are equally round and reactive to light, extraocular movements intact and no direction is specifically painful, patient is concerned he may have a scratch on the cornea but visual acuity is intact without correction. Differential diagnosis includes but is not limited to intracranial bleed, skull fracture, facial fracture, sinus injury, corneal abrasion, I also considered the possibility of open globe though I have low suspicion for this given clinical findings. Based on these concerns, I ordered CT imaging. Tetracaine and fluorescein were used for Ha lamp exam, negative Luke sign, no evidence of corneal ulcer or abrasion. Intraocular pressure 19 mmHg on the right, [address] head personally interpreted does not demonstrate acute intracranial bleed, mass, or midline shift, no skull fracture appreciated, CT cervical spine does not demonstrate acute traumatic injury, CT face personally interpreted demonstrates nasal fracture with air in the orbital cavity, radiology read pending. Patient does not have elevated intraocular pressure or proptosis of this eye, still possible retrobulbar hematoma but less suspicion for this given clinical exam at this time. Patient handed off to Dr. Price in stable condition pending CT reads, reassessment. <Elie Price MD - Last Filed: 02/16/25 08:38> Vital Signs: 02/16/25 06:29 02/16/25 07:00 02/16/25 07:30 Temperature 98.0 F Temperature Source Oral Pulse Rate 72 68 Pulse Rate [Right Radial] 71 Respiratory Rate 16 Blood Pressure 158/99 H 163/103 H Blood Pressure [Right Arm] 142/100 H Blood Pressure Mean Blood Pressure Mean [Right Arm] 114 Blood Pressure Position [Right Arm] Sitting 02 Sat by Pulse Oximetry 98 95 97 Oxygen Delivery Method Room Air Room Air Room Air 02/16/25 08:00 Temperature Temperature Source Pulse Rate 64 Pulse Rate [Right Radial] Respiratory Rate 18 Blood Pressure 163/107 H Blood Pressure [Right Arm] Blood Pressure Mean 131 Blood Pressure Mean [Right Arm] Blood Pressure Position [Right Arm] 02 Sat by Pulse Oximetry 98 Oxygen Delivery Method Lab Data Lab Results 02/16/25 06:23: Urine Color Yellow, Urine Appearance Clear, Urine pH 5.5, Ur Specific [place] >= 1.030, Urine Protein Negative, Urine Glucose (UA) Negative, Urine Ketones Negative, Urine Blood Negative, Urine Nitrate Negative, Urine Bilirubin Negative, Urine Urobilinogen 0.2, Ur Leukocyte Esterase Negative, Urine RBC None, Urine WBC Occasional, Ur Squamous Epith Cells None, Urine Bacteria Trace, Urine Mucus Trace Orders (Tests/Meds): ED MEDICATIONS Discontinued Medications Generic Name Dose Route Start Last Admin Trade Name Freq PRN Reason Stop Dose Admin Fluorescein Sodium 1 mg 02/16/25 06:43 02/16/25 07:15 Fluorescein Sodium 1mg Strip OP 02/16/25 06:44 1 mg ONCE ONE Administration Tetracaine HCl 0 ml 02/16/25 06:43 02/16/25 07:15 Tetracaine 0.5% Opth Stacie 15ml OP 02/16/25 06:44 15 ml ONCE ONE Administration ORDERS Category Date Time Status CT cervical spine wo con Stat Cat Scan 02/16/25 06:[address] facial bones wo con Stat Cat Scan 02/16/25 06:[address] head/brain wo con Stat Cat Scan 02/16/25 06:43 Completed UA [Urinalysis and Microscopic] Stat Lab 02/16/25 06:23 Completed Medical Decision Narrative: In summary, this 64-year-old male with history of REM sleep disorder, JHOAN, hypertension presents to the emergency department today with left eye and periorbital pain after fall. On initial evaluation patient is hemodynamically stable, afebrile, GCS 15, independently ambulatory into the ER, patient has no neurologic deficits, he does have left periorbital swelling, tenderness, ecchymosis, abrasion, also left scleral hemorrhage but pupils are equally round and reactive to light, extraocular movements intact and no direction is specifically painful, patient is concerned he may have a scratch on the cornea but visual acuity is intact without correction. Differential diagnosis includes but is not limited to intracranial bleed, skull fracture, facial fracture, sinus injury, corneal abrasion, I also considered the possibility of open globe though I have low suspicion for this given clinical findings. Based on these concerns, I ordered CT imaging. Tetracaine and fluorescein were used for Ha lamp exam, negative Luke sign, no evidence of corneal ulcer or abrasion. Intraocular pressure 19 mmHg on the right, [address] mmHg on the left[address] head personally interpreted does not demonstrate acute intracranial bleed, mass, or midline shift, no skull fracture appreciated, CT cervical spine does not demonstrate acute traumatic injury, CT face personally interpreted demonstrates nasal fracture with air in the orbital cavity, radiology read pending. Patient does not have elevated intraocular pressure or proptosis of this eye, still possible retrobulbar hematoma but less suspicion for this given clinical exam at this time. Patient handed off to Dr. Price in stable condition pending CT reads, reassessment. Elie Price: Upon assumption of care patient is hemodynamically stable. CT imaging remarkable for displaced fracture to the inferior wall of the left orbit with orbital fat protruding and a left lamina papyracea fracture. On my assessment patient's intraocular pressure is 21 bilaterally. He has slight visual blurriness in the left has full extraocular movements and does not have any diplopia, does not have pain. He coughed up a slight amount of blood however it appears that there is a little bit of blood in his posterior oropharynx from his nasal trauma I have no concern for true hemoptysis at this time imaging was considered will be deferred. Case was [facility] with [facility] facial surgery regarding management, no acute surgical intervention given that there is no clinical signs of entrapment he does not have bradycardia with vertical gaze. Given this patient we discharged with follow-up with facial clinic on Wednesday morning for which they will arrange. Patient we discharged with sinus precautions and Augmentin. Critical Care <Haydee Blum MD - Last Filed: 02/16/25 07:16> Critical Care Time Critical Care Time: No
[2025-02-16 06:48] LABS: Microscopic, Urine URINE MICROSCOPIC (MICROSCOPIC)
[2025-02-16 06:53] LABS: Color,Urine YELLOW (Yellow); Glucose,Urine (UA) Negative (Negative); Ketones,Urine Negative (Negative); Leukocyte Esterase,Urine Negative (Negative); PH,Urine 5.5 (5.0-8.5); Protein,Urine Negative (Negative); Specific Gravity, Urine >= 1.030 (1.005-1.030); Urobilinogen,Urine 0.2 EU/dl (0.2)
[2025-02-16 07:00] VITALS: BP 158/99; PULSE 72; O2SAT 95
[2025-02-16 07:10] LABS: Bilirubin,Urine Negative (Negative)
[2025-02-16] MEDS: TETRACAINE 0.5% OPTH SOL 15ML OP (07:15)
[2025-02-16] MEDS: FLUORESCEIN SODIUM 1MG STRIP 1 MG OP (07:15)
[2025-02-16 07:16] LABS: Bacteria,Urine Trace /lpf; Mucus,Urine Trace /lpf; WBC,Urine Occasional #/hpf (0-3)
[2025-02-16 07:30] VITALS: BP 163/103; PULSE 68; O2SAT 97
--- NOTE | 2025-02-16 07:53 | PC.NURSE ---
currently on phone with [facility] for consult per Dr Price for orbital fracture. [facility] advised they would call back. images have been shared.
[2025-02-16 08:00] VITALS: BP 163/107; PULSE 64; RESP 18; O2SAT 98
--- NOTE | 2025-02-16 08:10 | PC.NURSE ---
Dr Price is on phone with at this time
--- NOTE | 2025-02-16 08:19 | PC.NURSE ---
SELMA BECK speaking with [facility] at this time
[2025-02-16 08:50] VITALS: BP 135/86; PULSE 62; RESP 18; O2SAT 95
[2025-02-16 08:55] VITALS: BP 135/86; PULSE 68; RESP 20; TEMP 36.6; O2SAT 97
== END 2025-02-16 08:57 | disposition home or self-care (01) ==
PROVIDERS: Emergency Provider Emergency Medicine
DX: S02.842A Fracture of lateral orbital wall, left side, initial encounter for closed fracture (principal); H53.8 Other visual disturbances; W06.XXXA Fall from bed, initial encounter
CPT/HCPCS: 70450; 70486; 72125; 81001; 99285

== ENCOUNTER 2025-04-11 09:53 | Outpatient (RCR) | payer BC, SELFPAY | END 2025-04-11 23:59 | disposition home or self-care (01) | LOC: PT 09:53 | PROVIDERS: Visit Provider Physical Medicine & Rehabilitation | DX: S72.301D Unspecified fracture of shaft of right femur, subsequent encounter for closed fracture with routine healing (principal); S42.301D Unspecified fracture of shaft of humerus, right arm, subsequent encounter for fracture with routine healing; S82.001D Unspecified fracture of right patella, subsequent encounter for closed fracture with routine healing; S72.001D Fracture of unspecified part of neck of right femur, subsequent encounter for closed fracture with routine healing; S22.43XD Multiple fractures of ribs, bilateral, subsequent encounter for fracture with routine healing; S02.85XD Fracture of orbit, unspecified, subsequent encounter for fracture with routine healing; V29.99XD Rider (driver) (passenger) of other motorcycle injured in unspecified traffic accident, subsequent encounter | CPT/HCPCS: 97163 ==

== ENCOUNTER 2025-04-11 11:00 | Outpatient (RCR) | payer BC, SELFPAY | END 2025-04-11 23:59 | disposition home or self-care (01) | LOC: OT 11:00 | PROVIDERS: Visit Provider Physical Medicine & Rehabilitation | DX: S42.301A Unspecified fracture of shaft of humerus, right arm, initial encounter for closed fracture (principal); V29.99XA Rider (driver) (passenger) of other motorcycle injured in unspecified traffic accident, initial encounter | CPT/HCPCS: 97014; 97110; 97140; 97167; 97530; G0283 ==

== ENCOUNTER 2025-05-09 10:00 | Outpatient (RCR) | payer BC, SELFPAY | END 2025-05-09 23:59 | disposition home or self-care (01) | LOC: PT 10:00 | PROVIDERS: Visit Provider Neuromusculoskeletal Medicine, Sports Medicine | DX: M89.8X5 Other specified disorders of bone, thigh (principal) | CPT/HCPCS: 97110; 97116; 97163 ==

== ENCOUNTER 2025-05-15 10:00 | Outpatient (RCR) | payer BC, SELFPAY | END 2025-05-15 23:59 | disposition home or self-care (01) | LOC: OT 10:00 | PROVIDERS: Visit Provider Physical Medicine & Rehabilitation | DX: S42.451D Displaced fracture of lateral condyle of right humerus, subsequent encounter for fracture with routine healing (principal); S42.391D Other fracture of shaft of right humerus, subsequent encounter for fracture with routine healing; S72.001D Fracture of unspecified part of neck of right femur, subsequent encounter for closed fracture with routine healing; S82.001D Unspecified fracture of right patella, subsequent encounter for closed fracture with routine healing; V89.2XXD Person injured in unspecified motor-vehicle accident, traffic, subsequent encounter | CPT/HCPCS: 97014; 97032; 97110; 97140; 97168; G0283 ==

== ENCOUNTER 2025-06-13 09:00 | Outpatient (RCR) | payer BC, SELFPAY | END 2025-06-13 23:59 | disposition home or self-care (01) | LOC: PT 09:00 | PROVIDERS: Visit Provider Neuromusculoskeletal Medicine, Sports Medicine | DX: S22.43XD Multiple fractures of ribs, bilateral, subsequent encounter for fracture with routine healing (principal); S52.121D Displaced fracture of head of right radius, subsequent encounter for closed fracture with routine healing; S72.91XD Unspecified fracture of right femur, subsequent encounter for closed fracture with routine healing; S52.021D Displaced fracture of olecranon process without intraarticular extension of right ulna, subsequent encounter for closed fracture with routine healing; S82.001D Unspecified fracture of right patella, subsequent encounter for closed fracture with routine healing; V89.2XXD Person injured in unspecified motor-vehicle accident, traffic, subsequent encounter | CPT/HCPCS: 97110; 97112; 97116; 97140; 97530; 97760 ==

== ENCOUNTER 2025-06-14 10:00 | Outpatient (RCR) | payer BC, SELFPAY | END 2025-06-14 23:59 | disposition home or self-care (01) | LOC: OT 10:00 | PROVIDERS: Visit Provider Physical Medicine & Rehabilitation | DX: S42.391D Other fracture of shaft of right humerus, subsequent encounter for fracture with routine healing; S72.001D Fracture of unspecified part of neck of right femur, subsequent encounter for closed fracture with routine healing; S82.001D Unspecified fracture of right patella, subsequent encounter for closed fracture with routine healing; V89.2XXD Person injured in unspecified motor-vehicle accident, traffic, subsequent encounter | CPT/HCPCS: 97014; 97110; 97140; 97530; G0283 ==

== ENCOUNTER 2025-07-10 10:00 | Outpatient (RCR) | payer BC, SELFPAY | END 2025-07-10 23:59 | disposition home or self-care (01) | LOC: OT 10:00 | PROVIDERS: Visit Provider Physical Medicine & Rehabilitation | DX: G47.00 Insomnia, unspecified (principal); G47.8 Other sleep disorders | CPT/HCPCS: 97014; 97110; 97140; 97530; G0283 ==

== ENCOUNTER 2025-07-11 09:00 | Outpatient (RCR) | payer BC, SELFPAY | END 2025-07-11 23:59 | disposition home or self-care (01) | LOC: PT 09:00 | PROVIDERS: Visit Provider Neuromusculoskeletal Medicine, Sports Medicine | DX: M89.8X5 Other specified disorders of bone, thigh (principal) | CPT/HCPCS: 97110; 97112; 97116; 97530 ==

== ENCOUNTER 2025-07-20 09:58 | Outpatient (CLI) | payer BC, SELFPAY ==
[2025-07-20 12:34] LABS: Hemoglobin A1C 6.0 % (4.0-6.0)
[2025-07-20 12:41] LABS: Alanine Aminotransferase 17 U/L (12-78); Albumin Level 4.6 g/dl (3.5-5.0); Albumin/Globulin Ratio 1.6 (1.1-1.8); Alkaline Phosphatase 129 U/L (38-126); Anion Gap 13.4 mEq/L (5-15); Aspartate Amino Transferase 17 U/L (17-59); Bilirubin,Total 0.4 mg/dl (0.2-1.3); Blood Urea Nitrogen 18 mg/dl (9-20); Calcium 9.9 mg/dl (8.4-10.2); Carbon Dioxide 27 mmol/L (22.0-30.0); Chloride 105 mmol/L (98-107); Cholesterol 178 mg/dl (140-200); Creatinine,Serum 0.90 mg/dl (0.66-1.25); Estimated Glomerular Filt Rate 85 ml/min (>60); GFR (African American) 103 ML/MIN (>60); Globulin 2.9 g/dL (1.3-3.2); Glucose 103 mg/dl (74-100); HDL Cholesterol 50 mg/dl (40-60); Potassium 4.4 mmoL/L (3.5-5.1); Sodium 141 mmol/L (136-145); Total Protein,Serum 7.5 g/dl (6.3-8.2); Triglycerides 162 mg/dl (30-150)
== END 2025-07-20 23:59 | disposition home or self-care (01) ==
LOC: LAB 10:02
PROVIDERS: PCP Family Medicine; Visit Provider Family Medicine
DX: E78.5 Hyperlipidemia, unspecified (principal); N40.0 Benign prostatic hyperplasia without lower urinary tract symptoms; I10 Essential (primary) hypertension; R73.9 Hyperglycemia, unspecified
CPT/HCPCS: 36415; 80053; 80061; 83036; G0103

== ENCOUNTER 2025-08-14 10:00 | Outpatient (RCR) | payer BC, SELFPAY | END 2025-08-14 23:59 | disposition home or self-care (01) | LOC: OT 10:00 | PROVIDERS: PCP Family Medicine; Visit Provider Physical Medicine & Rehabilitation | DX: S72.301B Unspecified fracture of shaft of right femur, initial encounter for open fracture type I or II (principal); S42.301D Unspecified fracture of shaft of humerus, right arm, subsequent encounter for fracture with routine healing; S82.001D Unspecified fracture of right patella, subsequent encounter for closed fracture with routine healing; S72.001D Fracture of unspecified part of neck of right femur, subsequent encounter for closed fracture with routine healing; S22.43XD Multiple fractures of ribs, bilateral, subsequent encounter for fracture with routine healing; S02.85XD Fracture of orbit, unspecified, subsequent encounter for fracture with routine healing; R26.89 Other abnormalities of gait and mobility; R05.9 Cough, unspecified; E66.812 Obesity, class 2; Z68.39 Body mass index [BMI] 39.0-39.9, adult; A49.02 Methicillin resistant Staphylococcus aureus infection, unspecified site; I10 Essential (primary) hypertension; G47.33 Obstructive sleep apnea (adult) (pediatric); E78.5 Hyperlipidemia, unspecified; K21.9 Gastro-esophageal reflux disease without esophagitis; N40.0 Benign prostatic hyperplasia without lower urinary tract symptoms; E87.70 Fluid overload, unspecified; F32.9 Major depressive disorder, single episode, unspecified; G47.00 Insomnia, unspecified; G47.8 Other sleep disorders; V29.99XD Rider (driver) (passenger) of other motorcycle injured in unspecified traffic accident, subsequent encounter | CPT/HCPCS: 97014; 97110; 97140; G0283 ==

== ENCOUNTER 2025-08-15 10:00 | Outpatient (RCR) | payer BC, SELFPAY | END 2025-08-15 23:59 | disposition home or self-care (01) | LOC: PT 10:00 | PROVIDERS: PCP Family Medicine; Visit Provider Neuromusculoskeletal Medicine, Sports Medicine | DX: M79.651 Pain in right thigh (principal) | CPT/HCPCS: 97110; 97112; 97530 ==